=== PATIENT | female | born 1935 | race Caucasian/White ===

== ENCOUNTER 2016-12-15 02:52 | Emergency (ER) | payer MEDICARE, BC ==
[2016-12-15 03:04] VITALS: BP 152/83
[2016-12-15] MEDS ORDERED: Albuterol/Ipratropium 3.0-0.5 MG/3 ML Neb Soln NEB ONE (03:21)
[2016-12-15] MEDS ORDERED: methylPREDNISolone Sodium Succinate 125 MG/2 ML SDV IVPUSH ONE (03:21)
--- NOTE | 2016-12-15 03:25 | EDM.PDOC ---
ED HPI GENERAL MEDICAL PROBLEM - General Chief Complaint: Respiratory Problem Stated Complaint: HIGH BP & CHILLS Time Seen by Provider: 12/15/16 02:59 Source of Information: Reports: Patient, RN Notes Reviewed History Limitations: Reports: Respiratory Distress - History of Present Illness INITIAL COMMENTS - FREE TEXT/NARRATIVE: The patient has a history of COPD, obstructive sleep apnea, and is on oxygen either 2 or 3 L per nasal cannula continuously, as well as CPAP at night. She states that she has a home oxygen sensor, that she checked her oxygen level before she went to bed, and that it was okay. She states that she was unable to sleep due to dyspnea, and checked her oxygen and found it to be low, although she does not recall the number. She states that she has been wheezing, but denies recent cough. She has had chills, but no recent fever. She denies having a prior similar symptoms. She denies previously being intubated. Back Pain Score (Numeric/FACES): 5 - Related Data Allergies Allergy/AdvReac Type Severity Reaction Status Date / Time atorvastatin calcium Allergy Muscle Verified 12/15/16 03:04 [From Lipitor] Aches Home Meds: Home Meds Ammonium Lactate [Amlactin 12% Lotion] 500 gm TP BID 05/29/14 [History] Aspirin [Halfprin] 81 mg PO DAILY 05/29/14 [History] B2/Vit A,C & E/Lut/Zeaxanth/Mn [Icaps] 2 tab PO QAM 05/29/14 [History] Budesonide/Formoterol [Symbicort 160-4.5 MCG] 2 puff INH BID 05/29/14 [History] Cholecalciferol (Vitamin D3) [Vitamin D3] 1,000 unit PO DAILY 05/29/14 [History] Cholestyramine/Aspartame [Questran Light Powder] 4 gm PO DAILY PRN 05/29/14 [ History] Furosemide [Lasix] 60 mg PO DAILY 05/29/14 [History] Ibuprofen [Motrin] 600 mg PO ASDIRECTED PRN 05/29/14 [History] Levothyroxine 25 mcg PO ACBRK 05/29/14 [History] Lisinopril [Zestril] 2.5 mg PO DAILY 05/29/14 [History] Magnesium Oxide 400 mg PO BEDTIME 05/29/14 [History] Metoprolol Tartrate 50 mg PO BID 05/29/14 [History] Potassium Chloride [Klor-Con M20] 20 meq PO DAILY 05/29/14 [History] Simvastatin [Zocor] 40 mg PO BEDTIME 05/29/14 [History] Vitamin B Complex [B Complex] 1 each PO DAILY 05/29/14 [History] oxyCODONE HCl/Acetaminophen [Percocet 10-325 MG] 0.5 tab PO Q6H PRN 05/29/14 [ History] Acetaminophen [Tylenol] 325 mg PO ASDIRECTED 06/11/14 [History] Calcium 1500 Mg 1,500 mg PO BID 06/11/14 [History] Levofloxacin [Levaquin] 750 mg PO QAM #4 tablet 12/15/16 [Rx] Past Medical History Cardiovascular History: Reports: High Cholesterol, Hypertension Respiratory History: Reports: COPD, Sleep Apnea, Other (See Below) (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) Musculoskeletal History: Reports: Other (See Below) (Scoliosis) Endocrine/Metabolic History: Reports: Hypothyroidism, Obesity/BMI 30+ - Past Surgical History GI Surgical History: Reports: Cholecystectomy Female Surgical History: Reports: Hysterectomy, Oophorectomy (unilateral) Musculoskeletal Surgical History: Reports: Other (See Below) (Spinal surgery) Social & Family History - Tobacco Use Smoking Status *Q: Former Smoker Years of Tobacco use: 2 Used Tobacco, but Quit: Yes Month Tobacco Last Used: unknown - Alcohol Use Days Per Week of Alcohol Use: 0 - Recreational Drug Use Recreational Drug Use: No - Living Situation & Occupation Living situation: Reports: , with Spouse Occupation: Retired ED ROS GENERAL - Review of Systems Review Of Systems: Unable To Obtain (due to respiratory distress) ED EXAM, GENERAL - Physical Exam Exam: See Below Exam Limited By: No Limitations General Appearance: Alert, WD/WN, Moderate Distress Eye Exam: Bilateral Eye: Normal Inspection Ears: Normal External Exam, Hearing Grossly Normal Nose: Normal Inspection, No Blood Throat/Mouth: Normal Inspection, Normal Lips, Normal Voice, No Airway Compromise Head: Atraumatic, Normocephalic Neck: Normal Inspection, Full Range of Motion Respiratory/Chest: Respiratory Distress, Decreased Breath Sounds (severe), Wheezing (expiratory), Prolonged Expiration. No: Crackles, Rhonchi Cardiovascular: Normal Peripheral Pulses, Regular Rate, Rhythm, No Edema, No Gallop, No JVD, No Murmur, No Rub, Tachycardia Peripheral Pulses: 4+: Radial (L), Radial (R) GI/Abdominal: Normal Bowel Sounds, Soft, Non-Tender, No Organomegaly, No Distention, No Abnormal Bruit, No Mass, Other (Obese) (Female) Exam: Deferred Rectal (Female) Exam: Deferred Back Exam: Other (Severe scoliosis. Well-healed surgical scars noted.) Extremities: Normal Inspection, Normal Range of Motion, Normal Capillary Refill , Other (Bilateral legs with hyperpigmentation, consider with chronic venous stasis. 1+ pitting edema pretibially on the right, none on the left.) Neurological: Alert, Oriented, Normal Cognition, No Motor/Sensory Deficits Psychiatric: Normal Affect Skin Exam: Warm, Dry, Intact, Normal Color, No Rash Lymphatic: No Adenopathy EKG INTERPRETATION EKG Date: 12/15/16 Time: 03:03 Rhythm: NSR Rate (Beats/Min): 93 [place]: Normal P-Wave: Present QRS: Normal ST-T: Normal QT: Normal Comparison: NA - No Prior EKG Course - Vital Signs Last Recorded V/S: Last Vital Signs Temp 36.6 C 12/15/16 03:01 Pulse 94 12/15/16 03:01 Resp 21 H 12/15/16 03:01 BP 152/83 H 12/15/16 03:01 Pulse Ox 92 L 12/15/16 04:03 - Orders/Labs/Meds Orders: Active Orders 24 hr Category Date Time Status EKG Documentation Completion [RC] STAT Care 12/15/16 03:22 Active RT Aerosol Therapy [RC] ASDIRECTED Care 12/15/16 03:21 Active Ang Chest [CT] Stat Exams 12/15/16 04:11 Taken Chest 1V Frontal [CR] Stat Exams 12/15/16 03:23 Taken Sodium Chloride 0.9% [Normal Saline] 1,000 ml Med 12/15/16 04:15 Active IV ASDIRECTED Blood Culture x2 Reflex Set [OM.PC] Stat Oth 12/15/16 03:22 Ordered Medication Orders Sodium Chloride (Normal Saline) 1,000 mls @ 100 mls/hr IV ASDIRECTED JAZZY Last Admin: 12/15/16 04:23 Dose: 100 mls/hr Labs: Laboratory Tests 12/15/16 12/15/16 12/15/16 Range/Units 03:10 03:10 03:10 WBC 13.91 H (3.98-10.04) K/mm3 RBC 4.45 (3.98-5.22) M/mm3 Hgb 13.1 (11.2-15.7) gm/L Hct 42.5 (34.1-44.9) % MCV 95.5 H (79.4-94.8) fl MCH 29.4 (25.6-32.2) pg MCHC 30.8 L (32.2-35.5) g/dl RDW Std Deviation 49.9 H (36.4-46.3) fL Plt Count 195 (182-369) K/mm3 MPV 10.7 (9.4-12.3) fl Neutrophils % (Manual) 73 H (40-60) % Band Neutrophils % 0 (0-10) % Lymphocytes % (Manual) 15 L (20-40) % Atypical Lymphs % 6 % Monocytes % (Manual) 2 (2-10) % Eosinophils % (Manual) 3 (0.7-5.8) % Basophils % (Manual) 1 (0.1-1.2) Platelet Estimate Adequate Plt Morphology Comment Normal Poikilocytosis 1+ slight Anisocytosis 1+ slight Microcytosis 1+ slight Macrocytosis 1+ slight Ovalocytes 1+ slight RBC Morph Comment Abn PT 10.0 (8.0-13.0) SECONDS INR 0.92 APTT 24 (22-36) SECONDS D-Dimer, Quantitative 1.13 H (0.19-0.59) mg/L Puncture Site ABG pH (7.35-7.45) ABG pCO2 (35.0-45.0) mmHg ABG pO2 (80.0-100.0) mmHg ABG HCO3 (22.0-26.0) meq/L O2 Delivery Device Oxygen Flow Rate Sodium 141 (136-145) mEq/L Potassium 5.2 H (3.5-5.1) mEq/L Chloride 103 (98-107) mEq/L Carbon Dioxide 36 H (21-32) mEq/L Anion Gap 7.2 (5-15) BUN 24 H (7-18) mg/dL Creatinine 1.3 H (0.55-1.02) mg/dL Est Cr Clr Drug Dosing 26.39 mL/min Estimated GFR (MDRD) 39 (>60) mL/min BUN/Creatinine Ratio 18.5 H (14-18) Glucose 150 H (83-115) mg/dL Lactic Acid (0.4-2.0) mmol/L Calcium 9.4 (8.5-10.1) mg/dL Total Bilirubin 0.6 (0.2-1.0) mg/dL AST 22 (15-37) U/L ALT 22 (14-59) U/L Alkaline Phosphatase 107 (46-116) U/L Troponin I < 0.017 (0.00-0.056) ng/mL B-Natriuretic Peptide (0-100) pg/mL Total Protein 7.3 (6.4-8.2) g/dl Albumin 3.6 (3.4-5.0) g/dl Globulin 3.7 gm/dL Albumin/Globulin Ratio 1.0 (1-2) 12/15/16 12/15/16 12/15/16 Range/Units 03:10 03:22 03:47 WBC (3.98-10.04) K/mm3 RBC (3.98-5.22) M/mm3 Hgb (11.2-15.7) gm/L Hct (34.1-44.9) % MCV (79.4-94.8) fl MCH (25.6-32.2) pg MCHC (32.2-35.5) g/dl RDW Std Deviation (36.4-46.3) fL Plt Count (182-369) K/mm3 MPV (9.4-12.3) fl Neutrophils % (Manual) (40-60) % Band Neutrophils % (0-10) % Lymphocytes % (Manual) (20-40) % Atypical Lymphs % % Monocytes % (Manual) (2-10) % Eosinophils % (Manual) (0.7-5.8) % Basophils % (Manual) (0.1-1.2) Platelet Estimate Plt Morphology Comment Poikilocytosis Anisocytosis Microcytosis Macrocytosis Ovalocytes RBC Morph Comment PT (8.0-13.0) SECONDS INR APTT (22-36) SECONDS D-Dimer, Quantitative (0.19-0.59) mg/L Puncture Site Rt radial ABG pH 7.38 (7.35-7.45) ABG pCO2 50.5 H (35.0-45.0) mmHg ABG pO2 67.0 L (80.0-100.0) mmHg ABG HCO3 29.5 H (22.0-26.0) meq/L O2 Delivery Device Nasal cannula Oxygen Flow Rate 3.0 Sodium (136-145) mEq/L Potassium (3.5-5.1) mEq/L Chloride (98-107) mEq/L Carbon Dioxide (21-32) mEq/L Anion Gap (5-15) BUN (7-18) mg/dL Creatinine (0.55-1.02) mg/dL Est Cr Clr Drug Dosing mL/min Estimated GFR (MDRD) (>60) mL/min BUN/Creatinine Ratio (14-18) Glucose (83-115) mg/dL Lactic Acid 0.9 (0.4-2.0) mmol/L Calcium (8.5-10.1) mg/dL Total Bilirubin (0.2-1.0) mg/dL AST (15-37) U/L ALT (14-59) U/L Alkaline Phosphatase (46-116) U/L Troponin I (0.00-0.056) ng/mL B-Natriuretic Peptide 197 H (0-100) pg/mL Total Protein (6.4-8.2) g/dl Albumin (3.4-5.0) g/dl Globulin gm/dL Albumin/Globulin Ratio (1-2) Meds: Medications Generic Name Dose Route Start Last Admin Trade Name Freq PRN Reason Stop Dose Admin Sodium Chloride 1,000 mls @ 100 mls/hr 12/15/16 04:15 12/15/16 04:23 Normal Saline IV 100 mls/hr ASDIRECTED JAZZY Administration Discontinued Medications Generic Name Dose Route Start Last Admin Trade Name Freq PRN Reason Stop Dose Admin Albuterol/Ipratropium 3 ml 12/15/16 03:21 12/15/16 04:01 Duoneb 3.0-0.5 Mg/3 Ml NEB 12/15/16 03:22 3 ml ONETIME ONE Administration Iopamidol 140 ml 12/15/16 05:11 12/15/16 06:26 Isovue-370 (76%) IVPUSH 07/20/17 05:12 140 ml ONETIME ONE Administration Levofloxacin 750 mg 12/15/16 06:28 12/15/16 06:41 Levaquin PO 12/15/16 06:29 750 mg ONETIME STA Administration Methylprednisolone Sodium Succinate 125 mg 12/15/16 03:21 12/15/16 03:26 Solu-Medrol IVPUSH 12/15/16 03:22 125 mg ONETIME ONE Administration - Re-Assessments/Exams Free Text/Narrative Re-Assessment/Exam: 12/15/16 03:52 Portable chest radiograph reviewed. Interpretation is difficult, due to severe scoliosis and distortion of normal anatomy. Cardiac silhouette is within normal limits. No pulmonary vascular congestion. No pleural effusions. Right-sided infiltrates likely. No pneumothorax. Formal read per the Radiologist pending. 12/15/16 04:01 The patient's ABG represents a chronic/compensated respiratory acidosis. 12/15/16 04:12 The patient's D-dimer has returned elevated at 1.13. As her blood gas shows a compensated respiratory acidosis, it does not appear that the patient's current symptoms are due to a COPD exacerbation. Her chest radiograph is very difficult to interpret, but may demonstrate infiltrates, particularly on the right. I believe a CT angiogram of the chest will help answer a lot of questions. 12/15/16 06:20 Notified by the [facility] Radiologist that the CT angiography of the patient's chest demonstrates a 5 x 4 cm mass in the right upper lobe with associated lymphadenopathy. No pulmonary embolus. 12/15/16 06:23 CT angiogram of the chest is read by [facility] as: 1. 4 x 5 cm RUL lung mass versus masslike consolidation, new since 2012. 2. Enlarged/prominent right hilar and mediastinal lymph nodes-no reactive versus metastatic adenopathy 3. Similar severe scoliosis. Restrictive lung disease due to scoliosis. 4. Borderline enlarged heart. CAD. 12/15/16 06:29 The mass in the patient's right upper lobe is most likely a malignancy, although there is a small chance that it could be a masslike consolidation. Either way, I am going to treat with antibiotics. I have ordered Levaquin 750 mg by mouth. The patient's was here when the patient initially presented, but has since gone home. I'm told that he is on his way back to the ED, I will discuss the test results with the two of them when he returns. 12/15/16 07:18 Test results discussed with the patient and her . The patient is looking and feeling much better. I will discharge her home with an e-prescription for Levaquin, however, the main issue is the right upper lobe mass, most likely cancerous. I am recommending she follow-up with both her PCP, Dr. Erika Mccracken, and her Drawing In Machine T[employer] Helper Dr. Varela for further evaluation and treatment options. Departure - Departure Time of Disposition: : Disposition: Home, Self-Care 01 Condition: Fair Clinical Impression: Mass of right lung - Discharge Information Referrals: Erika Mccracken MD [Primary Care Provider] - Josiah Varela MD [Ordering Only Provider] - Forms: ED Department Discharge Additional Instructions: You were seen in the emergency room for severe shortness of breath. Workup in the ER included blood work, an ABG, 2 sets of blood cultures, an ECG, a portable chest x-ray, and a CT angiogram of your chest. Your workup showed that you were NOT having a COPD exacerbation. The CT angiogram demonstrated a 5 x 4 cm mass in your upper right lung. This will need to be investigated further. While it does not appear that you have pneumonia, it can be hidden within the mass, therefore you have been started on the antibiotic Levaquin. Take one tablet each morning, starting tomorrow, 12/16/2016, as prescribed. Follow-up with your PCP, Dr. Erika Mccracken at the next available appointment. Follow-up with your Drawing In Machine Tender Helper, Dr. Varela, at the next available appointment. If any other problems, please do not hesitate to return to the ER. - My Orders Last 24 Hours: My Active Orders 12/15/16 03:21 RT Aerosol Therapy [RC] ASDIRECTED 12/15/16 03:22 EKG Documentation Completion [RC] STAT Blood Culture x2 Reflex Set [OM.PC] Stat 12/15/16 03:23 Chest 1V Frontal [CR] Stat 12/15/16 04:11 Ang Chest [CT] Stat 12/15/16 04:15 Sodium Chloride 0.9% [Normal Saline] 1,000 ml IV ASDIRECTED - Assessment/Plan Last 24 Hours: My Active Orders 12/15/16 03:21 RT Aerosol Therapy [RC] ASDIRECTED 12/15/16 03:22 EKG Documentation Completion [RC] STAT Blood Culture x2 Reflex Set [OM.PC] Stat 12/15/16 03:23 Chest 1V Frontal [CR] Stat 12/15/16 04:11 Ang Chest [CT] Stat 12/15/16 04:15 Sodium Chloride 0.9% [Normal Saline] 1,000 ml IV ASDIRECTED
[2016-12-15] MEDS ORDERED: Sodium Chloride 0.9% 1,000 ML IV SCH (04:15)
[2016-12-15] MEDS ORDERED: Iopamidol 755 Mg/ML 100 ML Bottle IVPUSH ONE (05:11)
[2016-12-15] MEDS ORDERED: Levofloxacin 750 MG Tab PO STA (06:28)
--- NOTE | 2016-12-15 08:49 | CT ---
CT chest Technique: Multiple axial sections through the chest were obtained. Intravenous contrast was utilized. Study has been performed as a pulmonary angiogram protocol. Comparison: Previous chest CT of 04/10/13. Findings: Pulmonary arteries show no filling defects to indicate pulmonary embolism. Aorta shows mild atherosclerotic change without aneurysm. Mild coronary artery calcification is seen. No pericardial thickening is identified. Focal consolidation within the right upper chest is seen. This measures about 5 cm in greatest dimension and could represent mass or focal area of pneumonia. Mild fibrosis felt to be present within both lungs. Several scattered mediastinal lymph nodes are seen which have slightly increased in size from prior study which may be due to metastatic disease or inflammatory enlargement. Small portion of the upper abdominal structures shows a nonobstructing stone within the left kidney. Impression: 1. Focal consolidation within the right upper lung either due to focal pneumonia or neoplastic mass. Recommend treatment with antibiotics and follow-up chest CT 2 weeks after clinical therapy is complete to evaluate for any change. 2. Enlarged lymph nodes within the mediastinum from prior chest CT which may be enlarged on inflammatory basis or metastatic basis. 3. Scattered pulmonary scarring and fibrosis. Scoliosis present within the spine. Diagnostic code #9 I agree with preliminary report issued by [facility] ([facility] report finalized on 12/15/16, 7:20 AM Central Time)
--- NOTE | 2016-12-15 08:49 | CR ---
Chest: Frontal view of the chest was obtained. Comparison: Previous chest x-ray of 05/29/14. Scoliosis is present. Heart size appears within normal limits for technique. Tortuous thoracic aorta is seen. Vague increased density is noted within the right upper chest. This is an interval change from prior chest x-ray. Lungs otherwise are felt to be clear. Impression: 1. Vague increased density within the right upper chest either representing mass or pneumonia. 2. Stable scoliosis. Diagnostic code #9
== END 2016-12-15 08:17 | disposition home or self-care (01) ==
LOC: JD.ED 02:52
DX: R91.8 Other nonspecific abnormal finding of lung field (principal); I10 Essential (primary) hypertension; E78.00 Pure hypercholesterolemia, unspecified; J44.9 Chronic obstructive pulmonary disease, unspecified; G47.30 Sleep apnea, unspecified; E03.9 Hypothyroidism, unspecified; E66.9 Obesity, unspecified; Z90.49 Acquired absence of other specified parts of digestive tract; Z90.710 Acquired absence of both cervix and uterus; Z98.890 Other specified postprocedural states; Z87.891 Personal history of nicotine dependence; Z79.899 Other long term (current) drug therapy; Z79.82 Long term (current) use of aspirin; Z88.8 Allergy status to other drugs, medicaments and biological substances
CPT/HCPCS: 36415; 36600; 71010; 71275; 80053; 82803; 83605; 83880; 84484; 85025; 85379; 85610; 85730; 93005; 94664; 96361; 96374; 99284; A9270; J2930; J7040; Q9967

== ENCOUNTER 2017-10-06 12:54 | Emergency (ER) | payer MEDICARE, BC ==
[2017-10-06 13:26] VITALS: BP 116/64
--- NOTE | 2017-10-06 14:56 | CT ---
Head CT Technique: Multiple axial sections through the brain were obtained. Intravenous contrast was not utilized. Comparison: No prior intracranial imaging. Findings: Ventricles along the basal cisterns and sulci over the convexities are within normal limits for the patient's age. Old lacunar infarct is noted within the right basal ganglia. No other abnormal parenchymal densities are seen. No evidence of intracranial hemorrhage. No midline shift or mass effect is seen. Visualized sinuses are clear. No acute calvarial abnormality is seen. Impression: 1. Minimal senescent change. 2. No acute intracranial abnormality is seen on noncontrast head CT. Diagnostic code #2
--- NOTE | 2017-10-06 14:58 | CR ---
Chest: Frontal view of the chest was obtained. Comparison: Prior chest x-ray of 12/15/16. Heart size and mediastinum are within normal limits. Slight scarring is seen within both lung bases. Scoliosis is noted within the spine. Impression: 1. Incidental findings. Nothing acute is appreciated. Diagnostic code #2
[2017-10-06] MEDS ORDERED: Potassium Chloride 10% 20 MEQ/15 ML Soln 15 ML UD Cup PO ONE (14:59)
[2017-10-06] MEDS ORDERED: Cephalexin 500 MG Cap PO ONE (15:01)
--- NOTE | 2017-10-06 15:32 | EDM.PDOC ---
ED HPI GENERAL MEDICAL PROBLEM - General Chief Complaint: Neurological Problem Stated Complaint: DIZZINESS/FORGETFULNESS Time Seen by Provider: 10/06/17 13:32 Source of Information: Reports: Patient History Limitations: Reports: No Limitations - History of Present Illness INITIAL COMMENTS - FREE TEXT/NARRATIVE: 82 y/o F presents feeling vaguely weak and dizzy. A few days ago she had increased lower extremity edema so increased her lasix to 80mg daily x 2 days under the direction of her PCP Dr. Mccracken. Now today she's feeling weak and dizzy. No fall. Had a mild to moderate headache, this has actually resolved. No cough/CP/SOB. Denies abdominal pain. Mildly decreased appetite and nausea, no vomiting. Lower extremity edema has now resolved. No specific pain. No skin complaint. Concerned that she may have "overdosed" on her lasix so came here for eval. She has f/u scheduled with Dr. Mccracken for next week. Back Pain Score (Numeric/FACES): 7 - Related Data Allergies Allergy/AdvReac Type Severity Reaction Status Date / Time atorvastatin calcium AdvReac Muscle Verified 12/16/16 11:34 [From Lipitor] Aches Home Meds: Home Meds Ammonium Lactate [Amlactin 12% Lotion] 500 gm TP BID PRN 05/29/14 [History] Aspirin [Halfprin] 81 mg PO DAILY 05/29/14 [History] B2/Vit A,C & E/Lut/Zeaxanth/Mn [Icaps] 2 tab PO QAM 05/29/14 [History] Budesonide/Formoterol [Symbicort 160-4.5 MCG] 2 puff INH BID 05/29/14 [History] Cholecalciferol (Vitamin D3) [Vitamin D3] 1,000 unit PO DAILY 05/29/14 [History] Cholestyramine/Aspartame [Questran Light Powder] 4 gm PO DAILY PRN 05/29/14 [ History] Furosemide [Lasix] 80 mg PO DAILY 05/29/14 [History] Levothyroxine 25 mcg PO ACBRK 05/29/14 [History] Magnesium Oxide 400 mg PO BEDTIME 05/29/14 [History] Metoprolol Tartrate 50 mg PO BID 05/29/14 [History] Potassium Chloride [Klor-Con M20] 10 meq PO DAILY 05/29/14 [History] Simvastatin [Zocor] 40 mg PO BEDTIME 05/29/14 [History] Albuterol [IJD: Albuterol] 2.5 mg INH Q8H PRN 10/06/17 [History] Calcium Carbonate [Calcium] 1,500 mg PO DAILY 10/06/17 [History] Cephalexin 500 mg PO QID #28 tablet 10/06/17 [Rx] Naproxen 220 mg PO ASDIRECTED PRN 10/06/17 [History] Past Medical History Cardiovascular History: Reports: High Cholesterol, Hypertension Respiratory History: Reports: COPD, Sleep Apnea, Other (See Below) Other Respiratory History: wear oxygen at home Musculoskeletal History: Reports: Other (See Below) Endocrine/Metabolic History: Reports: Hypothyroidism, Obesity/BMI 30+ - Past Surgical History GI Surgical History: Reports: Cholecystectomy Female Surgical History: Reports: Hysterectomy, Oophorectomy Musculoskeletal Surgical History: Reports: Other (See Below) Social & Family History - Tobacco Use Smoking Status *Q: Never Smoker - Caffeine Use Caffeine Use: Reports: Coffee, Soda - Recreational Drug Use Recreational Drug Use: No - Living Situation & Occupation Living situation: Reports: , with Spouse Occupation: Retired ED ROS GENERAL - Review of Systems Review Of Systems: See Below Constitutional: Reports: Malaise, Weakness, Fatigue. Denies: Fever HEENT: Reports: No Symptoms Respiratory: Denies: Shortness of Breath Cardiovascular: Denies: Chest Pain Endocrine: Reports: Fatigue GI/Abdominal: Reports: Nausea. Denies: Vomiting : Denies: Dysuria Musculoskeletal: Reports: No Symptoms Skin: Reports: No Symptoms Neurological: Reports: Dizziness, Headache Psychiatric: Reports: No Symptoms Hematologic/Lymphatic: Reports: No Symptoms - Physical Exam Exam: See Below Exam Limited By: No Limitations General Appearance: Alert, WD/WN, No Apparent Distress Eye Exam: Bilateral Eye: EOMI, PERRL Ears: Normal External Exam Nose: Normal Inspection Throat/Mouth: Normal Inspection, Normal Oropharynx, Normal Voice, No Airway Compromise Head Exam: Atraumatic, Normocephalic Neck: Normal Inspection, Supple, Non-Tender, Full Range of Motion Respiratory/Chest: No Respiratory Distress, Lungs Clear, Normal Breath Sounds, No Accessory Muscle Use, Other (marked thoracic scoliosis, posterior chest wall scar. ) Cardiovascular: Normal Peripheral Pulses, Regular Rate, Rhythm, No Murmur, Other (minimal bilat LE edema, symmetric) GI/Abdominal: Soft, Non-Tender, No Distention. No: Rebound Neuro Exam (Abbreviated): Alert, Oriented, CN II-XII Intact, Normal Cognition, No Motor/Sensory Deficits Back Exam: Normal Inspection Extremities: Normal Inspection, Non-Tender Psychiatric: Normal Affect, Normal Mood Skin Exam: Warm, Dry, Intact, Normal Color, No Rash Course - Vital Signs Last Recorded V/S: Last Vital Signs Temp 36.8 C 10/06/17 13:25 Pulse 82 10/06/17 13:25 Resp 25 H 10/06/17 13:25 BP 116/64 10/06/17 13:25 Pulse Ox 93 L 10/06/17 13:25 - Orders/Labs/Meds Labs: Laboratory Tests 10/06/17 10/06/17 10/06/17 Range/Units 13:57 13:57 14:17 WBC 14.84 H (3.98-10.04) K/mm3 RBC 3.65 L (3.98-5.22) M/mm3 Hgb 10.9 L (11.2-15.7) gm/L Hct 36.3 (34.1-44.9) % MCV 99.5 H (79.4-94.8) fl MCH 29.9 (25.6-32.2) pg MCHC 30.0 L (32.2-35.5) g/dl RDW Std Deviation 51.1 H (36.4-46.3) fL Plt Count 249 (182-369) K/mm3 MPV 9.5 (9.4-12.3) fl Neut % (Auto) 81.3 H (34.0-71.1) % Lymph % (Auto) 7.1 L (19.3-51.7) % [place] % (Auto) 10.0 (4.7-12.5) % Eos % (Auto) 1.4 (0.7-5.8) Baso % (Auto) 0.1 (0.1-1.2) % Neut # (Auto) 12.05 H (1.56-6.13) K/mm3 Lymph # (Auto) 1.06 L (1.18-3.74) K/mm3 [place] # (Auto) 1.48 H (0.24-0.36) K/mm3 Eos # (Auto) 0.21 (0.04-0.36) K/mm3 Baso # (Auto) 0.02 (0.01-0.08) K/mm3 Manual Slide Review Abnormal smear Sodium 141 (136-145) mEq/L Potassium 3.1 L (3.5-5.1) mEq/L Chloride 99 (98-107) mEq/L Carbon Dioxide 37 H (21-32) mEq/L Anion Gap 8.1 (5-15) BUN 24 H (7-18) mg/dL Creatinine 1.4 H (0.55-1.02) mg/dL Est Cr Clr Drug Dosing 22.97 mL/min Estimated GFR (MDRD) 36 (>60) mL/min BUN/Creatinine Ratio 17.1 (14-18) Glucose 154 H (83-115) mg/dL Calcium 9.0 (8.5-10.1) mg/dL Magnesium 2.0 (1.8-2.4) mg/dl Total Bilirubin 0.5 (0.2-1.0) mg/dL AST 12 L (15-37) U/L ALT 21 (14-59) U/L Alkaline Phosphatase 129 H (46-116) U/L Troponin I < 0.017 (0.00-0.056) ng/mL Total Protein 6.6 (6.4-8.2) g/dl Albumin 2.2 L (3.4-5.0) g/dl Globulin 4.4 gm/dL Albumin/Globulin Ratio 0.5 L (1-2) Free T4 1.21 (0.76-1.46) ng/dL TSH 3rd Generation 2.089 (0.358-3.74) uIU/mL Urine Color Yellow (Yellow) Urine Appearance Clear (Clear) Urine pH 7.0 (5.0-8.0) Ur Specific [place] 1.015 (1.005-1.030) Urine Protein Trace H (Negative) Urine Glucose (UA) Negative (Negative) Urine Ketones Negative (Negative) Urine Occult Blood Trace-lysed H (Negative) Urine Nitrite Negative (Negative) Urine Bilirubin Negative (Negative) Urine Urobilinogen 1.0 (0.2-1.0) Ur Leukocyte Esterase 1+ H (Negative) Urine RBC 5-10 H (0-5) /hpf Urine WBC 20-30 H (0-5) /hpf Ur Epithelial Cells 5-10 H (0-5) /hpf Amorphous Sediment Few H (NOT SEEN) /hpf Urine Bacteria Moderate H (FEW) /hpf Urine Mucus Not seen (FEW) /hpf Meds: Medications Discontinued Medications Generic Name Dose Route Start Last Admin Trade Name Fer PRN Reason Stop Dose Admin Cephalexin 500 mg 10/06/17 15:01 10/06/17 15:12 Keflex PO 10/06/17 15:02 500 mg ONETIME ONE Administration Potassium Chloride 20 meq 10/06/17 14:59 10/06/17 15:12 Potassium Chloride Solution PO 10/06/17 15:00 20 meq ONETIME ONE Administration - Re-Assessments/Exams Free Text/Narrative Re-Assessment/Exam: EKG shows narrow complex rhythm, likely NSR with some atrial ectopy, no significant ST/T abnormality. CXR shows cardiac silhouette at upper limits of normal, no infiltrate or other acute abnormality. CT head was negative for acute abnormality. Labs significant for elevated WBC at 14. Creatinine 1.4. Mild hypokalemia at 3.1 which was replaced orally. UA is consistent with infection. I do think this explains her vague symptoms. Will treat with cephalexin. She has PCP f/u scheduled for several days from now. Discussed return precautions. 10/07/17 19:18 Departure - Departure Time of Disposition: 15:31 Disposition: Home, Self-Care 01 Clinical Impression: Hypokalemia, Generalized weakness Urinary tract infection Qualifiers: Urinary tract infection type: acute cystitis Hematuria presence: without hematuria Qualified Code(s): N30.00 - Acute cystitis without hematuria - Discharge Information Prescriptions: Cephalexin 500 mg PO QID #28 tablet Instructions: Urinary Tract Infection, Adult Referrals: Erika Mccracken MD [Primary Care Provider] - Forms: ED Department Discharge Additional Instructions: 1. Take antibiotic as prescribed 2. Follow up with Dr. Mccracken next week as planned 3. Return to the ED for any new or worsening symptoms, such as fever, vomiting, difficulty breathing, abdominal pain, or confusion
== END 2017-10-06 16:10 | disposition home or self-care (01) ==
LOC: JD.ED 12:54
DX: E87.6 Hypokalemia (principal); N30.00 Acute cystitis without hematuria; R53.1 Weakness; E78.00 Pure hypercholesterolemia, unspecified; I10 Essential (primary) hypertension; E03.9 Hypothyroidism, unspecified; Z88.8 Allergy status to other drugs, medicaments and biological substances; Z79.899 Other long term (current) drug therapy; Z79.82 Long term (current) use of aspirin
CPT/HCPCS: 36415; 70450; 71045; 80053; 81001; 83735; 84439; 84443; 84484; 85025; 87086; 93005; 99284; A9270; 99283

== ENCOUNTER 2017-10-07 22:52 | Inpatient (IN) | payer MEDICARE, BC ==
[2017-10-07] MEDS ORDERED: Sodium Chloride 0.9% 10 ML Syringe FLUSH PRN (23:14)
--- NOTE | 2017-10-07 23:41 | EDM.PDOC ---
ED HPI GENERAL MEDICAL PROBLEM - General Chief Complaint: Respiratory Problem Stated Complaint: POSS LOW OXYGEN Time Seen by Provider: 10/07/17 23:00 Source of Information: Reports: Patient History Limitations: Reports: No Limitations - History of Present Illness INITIAL COMMENTS - FREE TEXT/NARRATIVE: the patient is an 82-year-old female who has a history of severe scoliosis and COPD with baseline O2 requirement of 2L NC and CPAP at night, presents with confusion. She was here about 2 days ago with vague malaise/weakness and diagnosed with UTI and started on cephalexin. She has been taking this antibiotic as prescribed. Throughout the day today, family noticed that she seemed vaguely confused. They felt like her speech was slurred. She seemed weaker than usual. She has no specific complaint. States she felt like her thinking has been foggy. Family checked her SpO2 at home and found it to be low at 80. They checked her oxygen delivery system and thought there was a kink in the tubing. They brought her here for further eval. By the time of arrival she was already much improved. No fever. No cough. No chest pain/SOB. No abdominal pain. No vomiting or diarrhea. No lower extremity pain or swelling. Treatments MANAGER DIVISION: Reports: Other (see below) Other Treatments MANAGER DIVISION: increased 02 for brief time until recovered - Related Data Allergies Allergy/AdvReac Type Severity Reaction Status Date / Time atorvastatin calcium AdvReac Muscle Verified 12/16/16 11:34 [From Lipitor] Aches Home Meds: Home Meds Ammonium Lactate [Amlactin 12% Lotion] 500 gm TP BID PRN 05/29/14 [History] Aspirin [Halfprin] 81 mg PO DAILY 05/29/14 [History] B2/Vit A,C & E/Lut/Zeaxanth/Mn [Icaps] 2 tab PO QAM 05/29/14 [History] Budesonide/Formoterol [Symbicort 160-4.5 MCG] 2 puff INH BID 05/29/14 [History] Cholecalciferol (Vitamin D3) [Vitamin D3] 1,000 unit PO DAILY 05/29/14 [History] Cholestyramine/Aspartame [Questran Light Powder] 4 gm PO DAILY PRN 05/29/14 [ History] Furosemide [Lasix] 80 mg PO DAILY 05/29/14 [History] Levothyroxine 25 mcg PO ACBRK 05/29/14 [History] Magnesium Oxide 400 mg PO BEDTIME 05/29/14 [History] Metoprolol Tartrate 50 mg PO BID 05/29/14 [History] Potassium Chloride [Klor-Con M20] 10 meq PO DAILY 05/29/14 [History] Simvastatin [Zocor] 40 mg PO BEDTIME 05/29/14 [History] Albuterol [IJD: Albuterol] 2.5 mg INH Q8H PRN 10/06/17 [History] Calcium Carbonate [Calcium] 1,500 mg PO DAILY 10/06/17 [History] Cephalexin 500 mg PO QID #28 tablet 10/06/17 [Rx] Naproxen 220 mg PO ASDIRECTED PRN 10/06/17 [History] Past Medical History Cardiovascular History: Reports: High Cholesterol, Hypertension Respiratory History: Reports: COPD, Sleep Apnea, Other (See Below) Other Respiratory History: wear oxygen at home Musculoskeletal History: Reports: Other (See Below) Endocrine/Metabolic History: Reports: Hypothyroidism, Obesity/BMI 30+ - Past Surgical History GI Surgical History: Reports: Cholecystectomy Female Surgical History: Reports: Hysterectomy, Oophorectomy Musculoskeletal Surgical History: Reports: Other (See Below) Social & Family History - Tobacco Use Smoking Status *Q: Former Smoker Used Tobacco, but Quit: Yes Month/Year Tobacco Last Used: 64 yrs - Caffeine Use Caffeine Use: Reports: Coffee, Soda, Tea - Recreational Drug Use Recreational Drug Use: No - Living Situation & Occupation Living situation: Reports: , with Spouse Occupation: Retired ED ROS GENERAL - Review of Systems Review Of Systems: See Below Constitutional: Reports: Malaise, Weakness, Fatigue. Denies: Fever HEENT: Reports: No Symptoms Respiratory: Denies: Shortness of Breath, Cough Cardiovascular: Denies: Chest Pain Endocrine: Reports: No Symptoms GI/Abdominal: Denies: Abdominal Pain, Nausea Musculoskeletal: Reports: No Symptoms Skin: Reports: No Symptoms Neurological: Reports: Confusion, Dizziness, Headache Psychiatric: Reports: No Symptoms Hematologic/Lymphatic: Reports: No Symptoms Immunologic: Reports: No Symptoms ED EXAM, GENERAL - Physical Exam Exam: See Below Exam Limited By: No Limitations General Appearance: Alert, WD/WN, No Apparent Distress Eye Exam: Bilateral Eye: EOMI, PERRL Ears: Normal External Exam Nose: Normal Inspection Throat/Mouth: Normal Voice, No Airway Compromise, Other (dry mucous membranes ) Head: Atraumatic, Normocephalic Neck: Normal Inspection, Supple, Non-Tender, Full Range of Motion Respiratory/Chest: No Accessory Muscle Use, Decreased Breath Sounds, Wheezing ( diminished throughout. few scattered wheezes. ), Prolonged Expiration, Other ( mild tachypnea). No: Crackles, Rales Cardiovascular: Normal Peripheral Pulses, Regular Rate, Rhythm, No Edema, No Murmur GI/Abdominal: Soft, Non-Tender, No Distention. No: Rebound Back Exam: Normal Inspection Extremities: Normal Inspection. No: Pedal Edema Neurological: Alert, Oriented, CN II-XII Intact, Normal Cognition, No Motor/ Sensory Deficits Psychiatric: Normal Affect, Normal Mood Skin Exam: Warm, Dry, Intact, Normal Color, No Rash Course - Vital Signs Last Recorded V/S: Last Vital Signs Temp 36.3 C 10/07/17 23:04 Pulse 116 H 10/07/17 23:04 Resp 31 H 10/07/17 23:04 BP Pulse Ox 98 10/08/17 00:11 - Orders/Labs/Meds Orders: Active Orders 24 hr Category Date Time Status EKG 12 Lead [EKG Documentation Completion] [RC] STAT Care 10/07/17 23:14 Active Peripheral IV Care [RC] . DIRECTED Care 10/07/17 23:14 Active Peripheral IV Care [RC] . DIRECTED Care 10/07/17 23:15 Active RT Aerosol Therapy [RC] ASDIRECTED Care 10/07/17 23:57 Active RT BiPAP/CPAP [RC] ASDIRECTED Care 10/07/17 23:56 Active Chest 1V Frontal [CR] Stat Exams 10/07/17 23:14 Ordered Head wo Cont [CT] Stat Exams 10/07/17 23:14 Taken CULTURE BLOOD [BC] Stat Lab 10/07/17 23:30 Received CULTURE BLOOD [BC] Stat Lab 10/07/17 23:40 Received INFLUENZA A+B AG SCREEN [RM] Stat Lab 10/08/17 00:55 Ordered MYCOPLASMA PNEUMONIAE IGM AB [CHEM] Stat Lab 10/08/17 00:55 Ordered UA W/MICROSCOPIC [URIN] Stat Lab 10/07/17 23:14 Ordered Sodium Chloride 0.9% [Saline Flush] Med 10/07/17 23:14 Active 10 ml FLUSH ASDIRECTED PRN Blood Culture x2 Reflex Set [OM.PC] Stat Oth 10/07/17 23:14 Ordered Peripheral IV Insertion Adult [OM.PC] Routine Oth 10/07/17 23:14 Ordered Medication Orders Sodium Chloride (Saline Flush) 10 ml FLUSH ASDIRECTED PRN PRN Reason: Keep Vein Open Last Admin: 10/07/17 23:37 Dose: 10 ml Labs: Laboratory Tests 10/07/17 10/07/17 10/07/17 Range/Units 23:30 23:30 23:30 WBC 13.03 H (3.98-10.04) K/mm3 RBC 3.59 L (3.98-5.22) M/mm3 Hgb 10.5 L (11.2-15.7) gm/L Hct 35.6 (34.1-44.9) % MCV 99.2 H (79.4-94.8) fl MCH 29.2 (25.6-32.2) pg MCHC 29.5 L (32.2-35.5) g/dl RDW Std Deviation 52.0 H (36.4-46.3) fL Plt Count 296 (182-369) K/mm3 MPV 9.5 (9.4-12.3) fl Neut % (Auto) 79.7 H (34.0-71.1) % Lymph % (Auto) 8.6 L (19.3-51.7) % [place] % (Auto) 9.9 (4.7-12.5) % Eos % (Auto) 1.3 (0.7-5.8) Baso % (Auto) 0.2 (0.1-1.2) % Neut # (Auto) 10.39 H (1.56-6.13) K/mm3 Lymph # (Auto) 1.12 L (1.18-3.74) K/mm3 [place] # (Auto) 1.29 H (0.24-0.36) K/mm3 Eos # (Auto) 0.17 (0.04-0.36) K/mm3 Baso # (Auto) 0.02 (0.01-0.08) K/mm3 Manual Slide Review Abnormal smear PT 10.5 (9.5-12.1) SECONDS INR 0.96 Puncture Site ABG pH (7.35-7.45) ABG pCO2 (35.0-45.0) mmHg ABG pO2 (80.0-100.0) mmHg ABG HCO3 (22.0-26.0) meq/L ABG O2 Saturation (96.0-97.0) % ABG Base Excess (-2-2.0) Nikolai Test A-a Gradient mmHg O2 Delivery Device Oxygen Flow Rate FiO2 (21.00-100.00) % Sodium 141 (136-145) mEq/L Potassium 3.3 L (3.5-5.1) mEq/L Chloride 99 (98-107) mEq/L Carbon Dioxide 38 H (21-32) mEq/L Anion Gap 7.3 (5-15) BUN 30 H (7-18) mg/dL Creatinine 1.6 H (0.55-1.02) mg/dL Est Cr Clr Drug Dosing 20.10 mL/min Estimated GFR (MDRD) 31 (>60) mL/min BUN/Creatinine Ratio 18.8 H (14-18) Glucose 299 H (83-115) mg/dL Lactic Acid (0.4-2.0) mmol/L Calcium 9.0 (8.5-10.1) mg/dL Magnesium 1.9 (1.8-2.4) mg/dl Total Bilirubin 0.3 (0.2-1.0) mg/dL AST 39 H (15-37) U/L ALT 41 (14-59) U/L Alkaline Phosphatase 151 H (46-116) U/L Ammonia (11-32) umol/L Troponin I < 0.017 (0.00-0.056) ng/mL NT-Pro-B Natriuret Pep (0-450) pg/mL Total Protein 6.4 (6.4-8.2) g/dl Albumin 2.1 L (3.4-5.0) g/dl Globulin 4.3 gm/dL Albumin/Globulin Ratio 0.5 L (1-2) Lipase 122 (73-393) U/L Free T4 1.11 (0.76-1.46) ng/dL TSH 3rd Generation 2.108 (0.358-3.74) uIU/mL Ethyl Alcohol 0.00 (0.00) gm% 10/07/17 10/07/1718 Range/Units 23:30 23:30 23:30 WBC (3.98-10.04) K/mm3 RBC (3.98-5.22) M/mm3 Hgb (11.2-15.7) gm/L Hct (34.1-44.9) % MCV (79.4-94.8) fl MCH (25.6-32.2) pg MCHC (32.2-35.5) g/dl RDW Std Deviation (36.4-46.3) fL Plt Count (182-369) K/mm3 MPV (9.4-12.3) fl Neut % (Auto) (34.0-71.1) % Lymph % (Auto) (19.3-51.7) % [place] % (Auto) (4.7-12.5) % Eos % (Auto) (0.7-5.8) Baso % (Auto) (0.1-1.2) % Neut # (Auto) (1.56-6.13) K/mm3 Lymph # (Auto) (1.18-3.74) K/mm3 [place] # (Auto) (0.24-0.36) K/mm3 Eos # (Auto) (0.04-0.36) K/mm3 Baso # (Auto) (0.01-0.08) K/mm3 Manual Slide Review PT (9.5-12.1) SECONDS INR Puncture Site ABG pH (7.35-7.45) ABG pCO2 (35.0-45.0) mmHg ABG pO2 (80.0-100.0) mmHg ABG HCO3 (22.0-26.0) meq/L ABG O2 Saturation (96.0-97.0) % ABG Base Excess (-2-2.0) Nikolai Test A-a Gradient mmHg O2 Delivery Device Oxygen Flow Rate FiO2 (21.00-100.00) % Sodium (136-145) mEq/L Potassium (3.5-5.1) mEq/L Chloride (98-107) mEq/L Carbon Dioxide (21-32) mEq/L Anion Gap (5-15) BUN (7-18) mg/dL Creatinine (0.55-1.02) mg/dL Est Cr Clr Drug Dosing mL/min Estimated GFR (MDRD) (>60) mL/min BUN/Creatinine Ratio (14-18) Glucose (83-115) mg/dL Lactic Acid 1.1 (0.4-2.0) mmol/L Calcium (8.5-10.1) mg/dL Magnesium (1.8-2.4) mg/dl Total Bilirubin (0.2-1.0) mg/dL AST (15-37) U/L ALT (14-59) U/L Alkaline Phosphatase (46-116) U/L Ammonia 21 (11-32) umol/L Troponin I (0.00-0.056) ng/mL NT-Pro-B Natriuret Pep 6009 H (0-450) pg/mL Total Protein (6.4-8.2) g/dl Albumin (3.4-5.0) g/dl Globulin gm/dL Albumin/Globulin Ratio (1-2) Lipase (73-393) U/L Free T4 (0.76-1.46) ng/dL TSH 3rd Generation (0.358-3.74) uIU/mL Ethyl Alcohol (0.00) gm% 10/07/17 Range/Units 23:33 WBC (3.98-10.04) K/mm3 RBC (3.98-5.22) M/mm3 Hgb (11.2-15.7) gm/L Hct (34.1-44.9) % MCV (79.4-94.8) fl MCH (25.6-32.2) pg MCHC (32.2-35.5) g/dl RDW Std Deviation (36.4-46.3) fL Plt Count (182-369) K/mm3 MPV (9.4-12.3) fl Neut % (Auto) (34.0-71.1) % Lymph % (Auto) (19.3-51.7) % [place] % (Auto) (4.7-12.5) % Eos % (Auto) (0.7-5.8) Baso % (Auto) (0.1-1.2) % Neut # (Auto) (1.56-6.13) K/mm3 Lymph # (Auto) (1.18-3.74) K/mm3 [place] # (Auto) (0.24-0.36) K/mm3 Eos # (Auto) (0.04-0.36) K/mm3 Baso # (Auto) (0.01-0.08) K/mm3 Manual Slide Review PT (9.5-12.1) SECONDS INR Puncture Site Rt radial ABG pH 7.33 L (7.35-7.45) ABG pCO2 73.1 H* (35.0-45.0) mmHg ABG pO2 70.0 L (80.0-100.0) mmHg ABG HCO3 37.0 H (22.0-26.0) meq/L ABG O2 Saturation 94.1 L (96.0-97.0) % ABG Base Excess 9.4 H (-2-2.0) Nikolai Test Positive A-a Gradient 18 mmHg O2 Delivery Device Cannula Oxygen Flow Rate 2.0 FiO2 28.00 (21.00-100.00) % Sodium (136-145) mEq/L Potassium (3.5-5.1) mEq/L Chloride (98-107) mEq/L Carbon Dioxide (21-32) mEq/L Anion Gap (5-15) BUN (7-18) mg/dL Creatinine (0.55-1.02) mg/dL Est Cr Clr Drug Dosing mL/min Estimated GFR (MDRD) (>60) mL/min BUN/Creatinine Ratio (14-18) Glucose (83-115) mg/dL Lactic Acid (0.4-2.0) mmol/L Calcium (8.5-10.1) mg/dL Magnesium (1.8-2.4) mg/dl Total Bilirubin (0.2-1.0) mg/dL AST (15-37) U/L ALT (14-59) U/L Alkaline Phosphatase (46-116) U/L Ammonia (11-32) umol/L Troponin I (0.00-0.056) ng/mL NT-Pro-B Natriuret Pep (0-450) pg/mL Total Protein (6.4-8.2) g/dl Albumin (3.4-5.0) g/dl Globulin gm/dL Albumin/Globulin Ratio (1-2) Lipase (73-393) U/L Free T4 (0.76-1.46) ng/dL TSH 3rd Generation (0.358-3.74) uIU/mL Ethyl Alcohol (0.00) gm% Meds: Medications Generic Name Dose Route Start Last Admin Trade Name Freq PRN Reason Stop Dose Admin Sodium Chloride 10 ml 10/07/17 23:14 10/07/17 23:37 Saline Flush FLUSH 10 ml ASDIRECTED PRN Administration Keep Vein Open Discontinued Medications Generic Name Dose Route Start Last Admin Trade Name Freq PRN Reason Stop Dose Admin Albuterol/Ipratropium 3 ml 10/07/17 23:57 10/08/17 00:08 Duoneb 3.0-0.5 Mg/3 Ml NEB 10/07/17 23:58 3 ml ONETIME ONE Administration Doxycycline Hyclate 100 mg 10/08/17 00:06 10/08/17 00:32 Vibramycin PO 10/08/17 00:07 100 mg ONETIME ONE Administration Insulin Human Regular 6 unit 10/08/17 06:00 Humulin R SUBCUT BIDAC JAZZY Insulin Human Regular 6 unit 10/08/17 00:52 Humulin R SUBCUT 10/08/17 00:53 NOW STA Methylprednisolone Sodium Succinate 125 mg 10/08/17 00:06 10/08/17 00:33 Solu-Medrol IVPUSH 10/08/17 00:07 125 mg ONETIME ONE Administration - Re-Assessments/Exams Free Text/Narrative Re-Assessment/Exam: 10/08/17 00:[address] Ghotra who agrees to admit the patient. She is breathing comfortably on Bipap and is in no distress. Normal mental status. Discussed results including hyperglycemia with family. She has no prior history of diabetes. She has had polydipsia/polyuria recently, which had been attributed to her diuretic use but seems likely in part due to her elevated blood sugar. Will give 6 unites of subcutaneous insulin. Her chest x ray shows marked scoliosis and compression of R lung, no significant change from 2 days ago. WBC mildly elevated at 13, improved compared to two days ago. Mildly elevated creatinine at 1.6 (baseline appears to be around 1.3). Electrolytes otherwise normal. ABG showed partially compensated respiratory acidosis with PH of 7.3 and PCO2 of 70's, Bipap initiated. Her breathing was more comfortable after Bipap and neb. Departure - Departure Time of Disposition: : Disposition: Admitted As Inpatient 65 Clinical Impression: Acute hypoxemic respiratory failure, Respiratory acidosis, Acute hyperglycemia , Acute kidney injury - Discharge Information Referrals: Eriak Mccracken MD [Primary Care Provider] - Forms: ED Department Discharge - My Orders Last 24 Hours: My Active Orders 10/07/17 23:14 EKG 12 Lead [EKG Documentation Completion] [RC] STAT Peripheral IV Care [RC] . DIRECTED Chest 1V Frontal [CR] Stat Head wo Cont [CT] Stat UA W/MICROSCOPIC [URIN] Stat Sodium Chloride 0.9% [Saline Flush] 10 ml FLUSH ASDIRECTED PRN Blood Culture x2 Reflex Set [OM.PC] Stat Peripheral IV Insertion Adult [OM.PC] Routine 10/07/17 23:15 Peripheral IV Care [RC] . DIRECTED 10/07/17 23:30 CULTURE BLOOD [BC] Stat 10/07/17 23:40 CULTURE BLOOD [BC] Stat 10/07/17 23:56 RT BiPAP/CPAP [RC] ASDIRECTED 10/07/17 23:57 RT Aerosol Therapy [RC] ASDIRECTED 10/08/17 00:55 INFLUENZA A+B AG SCREEN [RM] Stat MYCOPLASMA PNEUMONIAE IGM AB [CHEM] Stat - Assessment/Plan Last 24 Hours: My Active Orders 10/07/17 23:14 EKG 12 Lead [EKG Documentation Completion] [RC] STAT Peripheral IV Care [RC] . DIRECTED Chest 1V Frontal [CR] Stat Head wo Cont [CT] Stat UA W/MICROSCOPIC [URIN] Stat Sodium Chloride 0.9% [Saline Flush] 10 ml FLUSH ASDIRECTED PRN Blood Culture x2 Reflex Set [OM.PC] Stat Peripheral IV Insertion Adult [OM.PC] Routine 10/07/17 23:15 Peripheral IV Care [RC] . DIRECTED 10/07/17 23:30 CULTURE BLOOD [BC] Stat 10/07/17 23:40 CULTURE BLOOD [BC] Stat 10/07/17 23:56 RT BiPAP/CPAP [RC] ASDIRECTED 10/07/17 23:57 RT Aerosol Therapy [RC] ASDIRECTED 10/08/17 00:55 INFLUENZA A+B AG SCREEN [RM] Stat MYCOPLASMA PNEUMONIAE IGM AB [CHEM] Stat
[2017-10-07] MEDS ORDERED: Albuterol/Ipratropium 3.0-0.5 MG/3 ML Neb Soln NEB ONE (23:57)
[2017-10-08] MEDS ORDERED: methylPREDNISolone Sodium Succinate 125 MG/2 ML SDV IVPUSH ONE (00:06)
[2017-10-08] MEDS ORDERED: Doxycycline 100 MG Cap PO ONE (00:06)
[2017-10-08] MEDS ORDERED: Insulin Regular, Human 100 Units/ML 3 ML Vial SUBCUT STA (00:52)
[2017-10-08] MEDS ORDERED: Ondansetron 4 MG/2 ML SDV IVPUSH PRN (02:44)
[2017-10-08] MEDS ORDERED: Sodium Chloride 0.9% 1,000 ML IV SCH (02:45)
[2017-10-08] MEDS ORDERED: Albuterol 0.083% 2.5 MG/3 ML Neb Soln NEB PRN (03:00)
[2017-10-08] MEDS ORDERED: Insulin Regular, Human 100 Units/ML 3 ML Vial SUBCUT SCH (06:00)
[2017-10-08] MEDS: Albuterol/Ipratropium 3.0-0.5 MG/3 ML Neb Soln NEB SCH ×4 (06:18→20:30)
[2017-10-08] MEDS: Insulin Aspart 100 Units/ML 3 ML Pen SUBCUT SCH ×4 (09:17→21:42)
--- NOTE | 2017-10-08 09:39 | PCM.HP ---
H&P History of Present Illness - General Date of Service: 10/08/17 Admit Problem/Dx: Admission Diagnosis/Problem Admission Diagnosis/Problem Hypoxia Source of Information: Patient, Provider History Limitations: Reports: No Limitations - History of Present Illness Initial Comments - Free Text/Narative: 82 year old female who lives with her returned to the ED with confusion. She was seen 24 hours [employer], was treated for a UTI and had been taking her Keflex as scheduled. However on the day of her return ED visit she was confused. The patient was hypoxic and had acute respiratory distress which subsequently resolved. She was started on BIPAP with improved air exchange. The patient will be admitted for COPD exacerbation; she requires baseline O2 2 l/ min. Onset of Symptoms: Reports: Gradual Symptom Onset Date: 10/05/17 Duration of Symptoms: Reports: Day(s):, Getting Worse Location: Reports: Chest, Generalized Severity: Moderate Improves with: Reports: Medication Worsens with: Reports: None Associated Symptoms: Reports: Confusion, Malaise, Shortness of Breath, Weakness - Related Data Allergies/Adverse Reactions: Allergies Allergy/AdvReac Type Severity Reaction Status Date / Time atorvastatin calcium AdvReac Muscle Verified 10/08/17 02:12 [From Lipitor] Aches Home Medications: Home Meds Ammonium Lactate [Amlactin 12% Lotion] 500 gm TP BID PRN 05/29/14 [History] Aspirin [Halfprin] 81 mg PO DAILY 05/29/14 [History] B2/Vit A,C & E/Lut/Zeaxanth/Mn [Icaps] 2 tab PO QAM 05/29/14 [History] Budesonide/Formoterol [Symbicort 160-4.5 MCG] 2 puff INH BID 05/29/14 [History] Cholecalciferol (Vitamin D3) [Vitamin D3] 1,000 unit PO DAILY 05/29/14 [History] Cholestyramine/Aspartame [Questran Light Powder] 4 gm PO DAILY PRN 05/29/14 [ History] Furosemide [Lasix] 80 mg PO DAILY 05/29/14 [History] Levothyroxine 25 mcg PO ACBRK 05/29/14 [History] Magnesium Oxide 400 mg PO BEDTIME 05/29/14 [History] Metoprolol Tartrate 50 mg PO BID 05/29/14 [History] Potassium Chloride [Klor-Con M20] 10 meq PO DAILY 05/29/14 [History] Simvastatin [Zocor] 40 mg PO BEDTIME 05/29/14 [History] Albuterol [IJD: Albuterol] 2.5 mg INH Q8H PRN 10/06/17 [History] Calcium Carbonate [Calcium] 1,500 mg PO DAILY 10/06/17 [History] Cephalexin 500 mg PO QID #28 tablet 10/06/17 [Rx] Naproxen 220 mg PO ASDIRECTED PRN 10/06/17 [History] Omeprazole 20 mg PO DAILY 10/08/17 [History] Past Medical History HEENT History: Reports: Impaired Vision, Other (See Below) Other HEENT History: pt wears glasses, reports to have upper denture and lower partial Cardiovascular History: Reports: High Cholesterol, Hypertension Respiratory History: Reports: COPD, Sleep Apnea, Other (See Below) Other Respiratory History: wear oxygen at home Musculoskeletal History: Reports: Other (See Below) Endocrine/Metabolic History: Reports: Hypothyroidism, Obesity/BMI 30+ Dermatologic History: Reports: Other (See Below) Other Dermatologic History: open sore to buttocks currently see admission assessment - Past Surgical History HEENT Surgical History: Reports: None Cardiovascular Surgical History: Reports: None Respiratory Surgical History: Reports: None GI Surgical History: Reports: Cholecystectomy Female Surgical History: Reports: Hysterectomy, Oophorectomy Endocrine Surgical History: Reports: None Dermatological Surgical History: Reports: None Social & Family History - Family History Family Medical History: Noncontributory - Tobacco Use Smoking Status *Q: Former Smoker Used Tobacco, but Quit: No Month/Year Tobacco Last Used: 64 yrs Second Hand Smoke Exposure: No - Caffeine Use Caffeine Use: Reports: Coffee, Soda, Tea - Recreational Drug Use Recreational Drug Use: No - Living Situation & Occupation Living situation: Reports: , with Spouse Occupation: Retired H&P Review of Systems - Review of Systems: Review Of Systems: See Below General: Reports: Malaise, Weakness HEENT: Reports: No Symptoms Pulmonary: Reports: Shortness of Breath, Wheezing Cardiovascular: Reports: No Symptoms Gastrointestinal: Reports: No Symptoms Genitourinary: Reports: No Symptoms Musculoskeletal: Reports: No Symptoms Skin: Reports: No Symptoms Psychiatric: Reports: Confusion Neurological: Reports: No Symptoms Hematologic/Lymphatic: Reports: No Symptoms Immunologic: Reports: No Symptoms Exam - Exam Exam: See Below - Vital Signs Vital Signs: Last Vital Signs Temp 36.7 C 10/08/17 01:45 Pulse 73 10/08/17 07:59 Resp 18 10/08/17 01:45 BP 96/75 10/08/17 07:59 Pulse Ox 96 10/08/17 09:07 Weight: 86.636 kg - Exam Quality Assessment: Supplemental Oxygen General: Alert, Oriented, Cooperative HEENT: Conjunctiva Clear, Nares Patent, Normal Nasal Septum, Pupils Equal, Pupils Reactive, PERRLA Neck: Trachea Midline Lungs: Normal Respiratory Effort, Decreased Breath Sounds Cardiovascular: Regular Rate, Regular Rhythm GI/Abdominal Exam: Normal Bowel Sounds, Soft, Non-Tender, No Organomegaly, No Distention (Female) Exam: Deferred Rectal (Female) Exam: Deferred Back Exam: Normal Inspection Extremities: Normal Inspection, Non-Tender, Normal Capillary Refill Skin: Warm Neurological: Cranial Nerves Intact, Normal Speech Neuro Extensive - Mental Status: Alert, Oriented x3, Normal Mood/Affect, Normal Cognition, Memory Intact Neuro Extensive - Motor, Sensory, Reflexes: CN II-XII Intact Psychiatric: Alert, Normal Affect, Normal Mood - Patient Data Lab Results Last 24 hrs: Laboratory Results - last 24 hr 10/07/17 10/07/17 10/07/17 Range/Units 23:30 23:30 23:30 WBC 13.03 H (3.98-10.04) K/mm3 RBC 3.59 L (3.98-5.22) M/mm3 Hgb 10.5 L (11.2-15.7) gm/L Hct 35.6 (34.1-44.9) % MCV 99.2 H (79.4-94.8) fl MCH 29.2 (25.6-32.2) pg MCHC 29.5 L (32.2-35.5) g/dl RDW Std Deviation 52.0 H (36.4-46.3) fL Plt Count 296 (182-369) K/mm3 MPV 9.5 (9.4-12.3) fl Neut % (Auto) 79.7 H (34.0-71.1) % Lymph % (Auto) 8.6 L (19.3-51.7) % Keith % (Auto) 9.9 (4.7-12.5) % Eos % (Auto) 1.3 (0.7-5.8) Baso % (Auto) 0.2 (0.1-1.2) % Neut # (Auto) 10.39 H (1.56-6.13) K/mm3 Lymph # (Auto) 1.12 L (1.18-3.74) K/mm3 Keith # (Auto) 1.29 H (0.24-0.36) K/mm3 Eos # (Auto) 0.17 (0.04-0.36) K/mm3 Baso # (Auto) 0.02 (0.01-0.08) K/mm3 Manual Slide Review Abnormal smear PT 10.5 (9.5-12.1) SECONDS INR 0.96 Puncture Site ABG pH (7.35-7.45) ABG pCO2 (35.0-45.0) mmHg ABG pO2 (80.0-100.0) mmHg ABG HCO3 (22.0-26.0) meq/L ABG O2 Saturation (96.0-97.0) % ABG Base Excess (-2-2.0) Nikolai Test A-a Gradient mmHg O2 Delivery Device Oxygen Flow Rate FiO2 (21.00-100.00) % Sodium 141 (136-145) mEq/L Potassium 3.3 L (3.5-5.1) mEq/L Chloride 99 (98-107) mEq/L Carbon Dioxide 38 H (21-32) mEq/L Anion Gap 7.3 (5-15) BUN 30 H (7-18) mg/dL Creatinine 1.6 H (0.55-1.02) mg/dL Est Cr Clr Drug Dosing 20.10 mL/min Estimated GFR (MDRD) 31 (>60) mL/min BUN/Creatinine Ratio 18.8 H (14-18) Glucose 299 H (83-115) mg/dL POC Glucose (83-110) mg/dL Lactic Acid (0.4-2.0) mmol/L Calcium 9.0 (8.5-10.1) mg/dL Magnesium 1.9 (1.8-2.4) mg/dl Total Bilirubin 0.3 (0.2-1.0) mg/dL AST 39 H (15-37) U/L ALT 41 (14-59) U/L Alkaline Phosphatase 151 H (46-116) U/L Ammonia (11-32) umol/L Troponin I < 0.017 (0.00-0.056) ng/mL C-Reactive Protein (<1.0) mg/dL NT-Pro-B Natriuret Pep (0-450) pg/mL Total Protein 6.4 (6.4-8.2) g/dl Albumin 2.1 L (3.4-5.0) g/dl Globulin 4.3 gm/dL Albumin/Globulin Ratio 0.5 L (1-2) Lipase 122 (73-393) U/L Free T4 1.11 (0.76-1.46) ng/dL TSH 3rd Generation 2.108 (0.358-3.74) uIU/mL Ethyl Alcohol 0.00 (0.00) gm% Mycoplasma pneumon IgM (NEGATIVE) 10/07/17 10/07/17 10/07/17 Range/Units 23:30 23:30 23:30 WBC (3.98-10.04) K/mm3 RBC (3.98-5.22) M/mm3 Hgb (11.2-15.7) gm/L Hct (34.1-44.9) % MCV (79.4-94.8) fl MCH (25.6-32.2) pg MCHC (32.2-35.5) g/dl RDW Std Deviation (36.4-46.3) fL Plt Count (182-369) K/mm3 MPV (9.4-12.3) fl Neut % (Auto) (34.0-71.1) % Lymph % (Auto) (19.3-51.7) % Keith % (Auto) (4.7-12.5) % Eos % (Auto) (0.7-5.8) Baso % (Auto) (0.1-1.2) % Neut # (Auto) (1.56-6.13) K/mm3 Lymph # (Auto) (1.18-3.74) K/mm3 Keith # (Auto) (0.24-0.36) K/mm3 Eos # (Auto) (0.04-0.36) K/mm3 Baso # (Auto) (0.01-0.08) K/mm3 Manual Slide Review PT (9.5-12.1) SECONDS INR Puncture Site ABG pH (7.35-7.45) ABG pCO2 (35.0-45.0) mmHg ABG pO2 (80.0-100.0) mmHg ABG HCO3 (22.0-26.0) meq/L ABG O2 Saturation (96.0-97.0) % ABG Base Excess (-2-2.0) Nikolai Test A-a Gradient mmHg O2 Delivery Device Oxygen Flow Rate FiO2 (21.00-100.00) % Sodium (136-145) mEq/L Potassium (3.5-5.1) mEq/L Chloride (98-107) mEq/L Carbon Dioxide (21-32) mEq/L Anion Gap (5-15) BUN (7-18) mg/dL Creatinine (0.55-1.02) mg/dL Est Cr Clr Drug Dosing mL/min Estimated GFR (MDRD) (>60) mL/min BUN/Creatinine Ratio (14-18) Glucose (83-115) mg/dL POC Glucose (83-110) mg/dL Lactic Acid 1.1 (0.4-2.0) mmol/L Calcium (8.5-10.1) mg/dL Magnesium (1.8-2.4) mg/dl Total Bilirubin (0.2-1.0) mg/dL AST (15-37) U/L ALT (14-59) U/L Alkaline Phosphatase (46-116) U/L Ammonia 21 (11-32) umol/L Troponin I (0.00-0.056) ng/mL C-Reactive Protein (<1.0) mg/dL NT-Pro-B Natriuret Pep 6009 H (0-450) pg/mL Total Protein (6.4-8.2) g/dl Albumin (3.4-5.0) g/dl Globulin gm/dL Albumin/Globulin Ratio (1-2) Lipase (73-393) U/L Free T4 (0.76-1.46) ng/dL TSH 3rd Generation (0.358-3.74) uIU/mL Ethyl Alcohol (0.00) gm% Mycoplasma pneumon IgM (NEGATIVE) 05/12/18 05/12/18 05/13/18 Range/Units 23:30 23:33 05:30 WBC (3.98-10.04) K/mm3 RBC (3.98-5.22) M/mm3 Hgb (11.2-15.7) gm/L Hct (34.1-44.9) % MCV (79.4-94.8) fl MCH (25.6-32.2) pg MCHC (32.2-35.5) g/dl RDW Std Deviation (36.4-46.3) fL Plt Count (182-369) K/mm3 MPV (9.4-12.3) fl Neut % (Auto) (34.0-71.1) % Lymph % (Auto) (19.3-51.7) % Keith % (Auto) (4.7-12.5) % Eos % (Auto) (0.7-5.8) Baso % (Auto) (0.1-1.2) % Neut # (Auto) (1.56-6.13) K/mm3 Lymph # (Auto) (1.18-3.74) K/mm3 Keith # (Auto) (0.24-0.36) K/mm3 Eos # (Auto) (0.04-0.36) K/mm3 Baso # (Auto) (0.01-0.08) K/mm3 Manual Slide Review PT (9.5-12.1) SECONDS INR Puncture Site Rt radial ABG pH 7.33 L (7.35-7.45) ABG pCO2 73.1 H* (35.0-45.0) mmHg ABG pO2 70.0 L (80.0-100.0) mmHg ABG HCO3 37.0 H (22.0-26.0) meq/L ABG O2 Saturation 94.1 L (96.0-97.0) % ABG Base Excess 9.4 H (-2-2.0) Nikolai Test Positive A-a Gradient 18 mmHg O2 Delivery Device Cannula Oxygen Flow Rate 2.0 FiO2 28.00 (21.00-100.00) % Sodium (136-145) mEq/L Potassium (3.5-5.1) mEq/L Chloride (98-107) mEq/L Carbon Dioxide (21-32) mEq/L Anion Gap (5-15) BUN (7-18) mg/dL Creatinine (0.55-1.02) mg/dL Est Cr Clr Drug Dosing mL/min Estimated GFR (MDRD) (>60) mL/min BUN/Creatinine Ratio (14-18) Glucose (83-115) mg/dL POC Glucose (83-110) mg/dL Lactic Acid 0.9 (0.4-2.0) mmol/L Calcium (8.5-10.1) mg/dL Magnesium (1.8-2.4) mg/dl Total Bilirubin (0.2-1.0) mg/dL AST (15-37) U/L ALT (14-59) U/L Alkaline Phosphatase (46-116) U/L Ammonia (11-32) umol/L Troponin I (0.00-0.056) ng/mL C-Reactive Protein (<1.0) mg/dL NT-Pro-B Natriuret Pep (0-450) pg/mL Total Protein (6.4-8.2) g/dl Albumin (3.4-5.0) g/dl Globulin gm/dL Albumin/Globulin Ratio (1-2) Lipase (73-393) U/L Free T4 (0.76-1.46) ng/dL TSH 3rd Generation (0.358-3.74) uIU/mL Ethyl Alcohol (0.00) gm% Mycoplasma pneumon IgM Negative (NEGATIVE) 10/08/17 10/08/17 10/08/17 Range/Units 05:52 05:52 06:45 WBC 11.02 H (3.98-10.04) K/mm3 RBC 3.54 L (3.98-5.22) M/mm3 Hgb 10.4 L (11.2-15.7) gm/L Hct 35.2 (34.1-44.9) % MCV 99.4 H (79.4-94.8) fl MCH 29.4 (25.6-32.2) pg MCHC 29.5 L (32.2-35.5) g/dl RDW Std Deviation 51.4 H (36.4-46.3) fL Plt Count 288 (182-369) K/mm3 MPV 9.6 (9.4-12.3) fl Neut % (Auto) 91.7 H (34.0-71.1) % Lymph % (Auto) 6.0 L (19.3-51.7) % Keith % (Auto) 1.9 L (4.7-12.5) % Eos % (Auto) 0 L (0.7-5.8) Baso % (Auto) 0.1 (0.1-1.2) % Neut # (Auto) 10.11 H (1.56-6.13) K/mm3 Lymph # (Auto) 0.66 L (1.18-3.74) K/mm3 Keith # (Auto) 0.21 L (0.24-0.36) K/mm3 Eos # (Auto) 0.00 L (0.04-0.36) K/mm3 Baso # (Auto) 0.01 (0.01-0.08) K/mm3 Manual Slide Review Abnormal smear PT (9.5-12.1) SECONDS INR Puncture Site ABG pH (7.35-7.45) ABG pCO2 (35.0-45.0) mmHg ABG pO2 (80.0-100.0) mmHg ABG HCO3 (22.0-26.0) meq/L ABG O2 Saturation (96.0-97.0) % ABG Base Excess (-2-2.0) Nikolai Test A-a Gradient mmHg O2 Delivery Device Oxygen Flow Rate FiO2 (21.00-100.00) % Sodium 139 (136-145) mEq/L Potassium 3.6 (3.5-5.1) mEq/L Chloride 99 (98-107) mEq/L Carbon Dioxide 39 H (21-32) mEq/L Anion Gap 4.6 L (5-15) BUN 32 H (7-18) mg/dL Creatinine 1.6 H (0.55-1.02) mg/dL Est Cr Clr Drug Dosing 20.10 mL/min Estimated GFR (MDRD) 31 (>60) mL/min BUN/Creatinine Ratio 20.0 H (14-18) Glucose 169 H (83-115) mg/dL POC Glucose 197 H (83-110) mg/dL Lactic Acid (0.4-2.0) mmol/L Calcium 9.3 (8.5-10.1) mg/dL Magnesium 2.2 (1.8-2.4) mg/dl Total Bilirubin (0.2-1.0) mg/dL AST (15-37) U/L ALT (14-59) U/L Alkaline Phosphatase (46-116) U/L Ammonia (11-32) umol/L Troponin I (0.00-0.056) ng/mL C-Reactive Protein 21.4 H* (<1.0) mg/dL NT-Pro-B Natriuret Pep (0-450) pg/mL Total Protein (6.4-8.2) g/dl Albumin (3.4-5.0) g/dl Globulin gm/dL Albumin/Globulin Ratio (1-2) Lipase (73-393) U/L Free T4 (0.76-1.46) ng/dL TSH 3rd Generation (0.358-3.74) uIU/mL Ethyl Alcohol (0.00) gm% Mycoplasma pneumon IgM (NEGATIVE) Result Diagrams: 10/08/17 05:52 10/08/17 05:52 Johnny Results Last 24 hrs: Microbiology 10/08/17 00:10 Influenza Type A Antigen Screen - Final Nasopharyngeal Swab NEGATIVE INFLUENZA A VIRUS AG Influenza Type B Antigen Screen - Final NEGATIVE INFLUENZA B VIRUS AG - Problem List (1) Acute hyperglycemia SNOMED Code(s): 957293415 ICD Code: R73.9 - HYPERGLYCEMIA, UNSPECIFIED Status: Acute Current Visit : Yes (2) Acute hypoxemic respiratory failure SNOMED Code(s): 848877517 ICD Code: J96.01 - ACUTE RESPIRATORY FAILURE WITH HYPOXIA Status: Acute Current Visit: Yes (3) Acute kidney injury SNOMED Code(s): 29434256 ICD Code: N17.9 - ACUTE KIDNEY FAILURE, UNSPECIFIED Status: Acute Current Visit: Yes (4) Respiratory acidosis SNOMED Code(s): 02904044 ICD Code: E87.2 - ACIDOSIS Status: Acute Current Visit: Yes (5) Generalized weakness SNOMED Code(s): 94745045 ICD Code: R53.1 - WEAKNESS Status: Acute Current Visit: No (6) Hypokalemia SNOMED Code(s): 05870848 ICD Code: E87.6 - HYPOKALEMIA Status: Acute Current Visit: No (7) Urinary tract infection SNOMED Code(s): 51671972 ICD Code: N39.0 - URINARY TRACT INFECTION, SITE NOT SPECIFIED Status: Acute Current Visit: No Qualifiers: Urinary tract infection type: acute cystitis Hematuria presence: without hematuria Qualified Code(s): N30.00 - Acute cystitis without hematuria (8) Diabetes mellitus SNOMED Code(s): 38315139 ICD Code: E11.9 - TYPE 2 DIABETES MELLITUS WITHOUT COMPLICATIONS Status: Acute Current Visit: Yes Qualifiers: Diabetes mellitus type: type 2 (9) Hyperlipidemia due to type 2 diabetes mellitus SNOMED Code(s): 140908038149359 ICD Code: E11.69 - TYPE 2 DIABETES MELLITUS WITH OTHER SPECIFIED COMPLICATION ; E78.5 - HYPERLIPIDEMIA, UNSPECIFIED Status: Chronic Current Visit: Yes (10) Body mass index (bmi) 36.0-36.9, adult SNOMED Code(s): 011991159 ICD Code: Z68.36 - BODY MASS INDEX (BMI) 36.0-36.9, ADULT Status: Chronic Current Visit: Yes (11) COPD (chronic obstructive pulmonary disease) SNOMED Code(s): 30584985 ICD Code: J44.9 - CHRONIC OBSTRUCTIVE PULMONARY DISEASE, UNSPECIFIED Status : Acute Current Visit: Yes (12) Mental status change SNOMED Code(s): 158409029 ICD Code: R41.82 - ALTERED MENTAL STATUS, UNSPECIFIED Status: Acute Current Visit: Yes (13) Sleep apnea SNOMED Code(s): 08025712 ICD Code: G47.30 - SLEEP APNEA, UNSPECIFIED Status: Chronic Current Visit : Yes Problem List Initiated/Reviewed/Updated: Yes Orders Last 24hrs: Active Orders 24 hr Category Date Time Status Admission Status [Patient Status] [ADT] Routine ADT 10/08/17 01:03 Active Activity as Tolerated [RC] 10,22 Care 10/08/17 04:47 Active Blood Glucose Check, Bedside [RC] QIDACANDBED Care 10/08/17 02:25 Active Oxygen Therapy [RC] ASDIRECTED Care 10/08/17 02:05 Active RT Aerosol Therapy [RC] ASDIRECTED Care 10/08/17 02:58 Active RT BiPAP/CPAP [RC] ASDIRECTED Care 10/07/17 23:56 Active ADA Diabetic [[employer] Diet] [DIET Diet 10/08/17 Breakfast Active ] Chest 1V Frontal [CR] Stat Exams 10/07/17 23:14 Taken Head wo Cont [CT] Stat Exams 10/07/17 23:14 Taken CULTURE BLOOD [BC] Stat Lab 10/07/17 23:30 Received CULTURE BLOOD [BC] Stat Lab 10/07/17 23:40 Received INFLUENZA A+B AG SCREEN [RM] Stat Lab 10/08/17 00:10 Ordered RESPIRATORY PANEL BY PCR [MREF] Routine Lab 10/08/17 02:10 Received UA W/MICROSCOPIC [URIN] Stat Lab 10/07/17 23:14 Ordered Acetaminophen [Tylenol] Med 10/08/17 02:43 Active 650 mg PO Q6H PRN Albuterol [Proventil Neb Soln] Med 10/08/17 03:00 Active 2.5 mg NEB Q4HRRT PRN Albuterol/Ipratropium [DuoNeb 3.0-0.5 MG/3 ML] Med 10/08/17 06:00 Active 3 ml NEB QIDRT Benzonatate [Tessalon Perles] Med 10/08/17 02:41 Active 100 mg PO QID PRN Insulin Aspart [NovoLOG] Med 10/08/17 07:00 Active See Protocol SUBCUT QIDACANDBED Ondansetron [Zofran] Med 10/08/17 02:44 Active 4 mg IVPUSH Q8H PRN Sodium Chloride 0.9% [Normal Saline] 1,000 ml Med 10/08/17 02:45 Active IV ASDIRECTED Sodium Chloride 0.9% [Saline Flush] Med 10/07/17 23:14 Active 10 ml FLUSH ASDIRECTED PRN Blood Culture x2 Reflex Set [OM.PC] Stat Oth 10/07/17 23:14 Ordered Isolation [COMM] Routine Oth 10/08/17 02:40 Ordered Peripheral IV Insertion Adult [OM.PC] Routine Oth 10/07/17 23:14 Ordered Code Status [Resuscitation Status] Routine Resus Stat 10/08/17 02:11 Ordered Medication Orders Acetaminophen (Tylenol) 650 mg PO Q6H PRN PRN Reason: Pain/Fever Albuterol (Proventil Neb Soln) 2.5 mg NEB Q4HRRT PRN PRN Reason: Shortness of Breath Albuterol/Ipratropium (Duoneb 3.0-0.5 Mg/3 Ml) 3 ml NEB QIDRT JAZZY Last Admin: 10/08/17 09:07 Dose: 3 ml Admin: 10/08/17 06:18 Dose: 3 ml Benzonatate (Tessalon Perles) 100 mg PO QID PRN PRN Reason: Cough Sodium Chloride (Normal Saline) 1,000 mls @ 75 mls/hr IV ASDIRECTED JAZZY Last Admin: 10/08/17 04:44 Dose: 75 mls/hr Insulin Aspart (Novolog) 0 unit SUBCUT QIDACANDBED [facility]; Protocol Last Admin: 10/08/17 09:17 Dose: 1 unit Ondansetron HCl (Zofran) 4 mg IVPUSH Q8H PRN PRN Reason: Nausea/Vomiting Sodium Chloride (Saline Flush) 10 ml FLUSH ASDIRECTED PRN PRN Reason: Keep Vein Open Last Admin: 10/07/17 23:37 Dose: 10 ml Assessment/Plan Comment:: Impression: Acute mental status change Acute respiratory distress with resp acidosis Acute exacerbation of COPD on home O2, 2l/m New onset diabetes mellitus type 2 CKD, stage 4-5; acute renal failure Acute UTI on Keflex Elevated BNP Chronic Obesity HTN HLD Hypothyroidism JORGE ALBERTO Scoliosis Plan: IVF IV ATB (zithro/rocephin) Urine Cx Home meds Daily labs DM education Dietary consult (ADA/Wgt loss) Consult PT/OT/CM DVT/GI prophylaxis
[2017-10-08] MEDS ORDERED: Metoprolol Tartrate 5 MG/5 ML SDV IVPUSH PRN (09:47)
[2017-10-08] MEDS ORDERED: Cholestyramine/Aspartame Powder 4 GM Packet PO PRN (09:49)
[2017-10-08] MEDS ORDERED: Metoprolol Tartrate 5 MG/5 ML SDV IVPUSH ONE (09:50)
[2017-10-08] MEDS ORDERED: Metoprolol Tartrate 5 MG/5 ML SDV ONE (09:52)
[2017-10-08] MEDS ORDERED: Doxycycline 100 MG in Sodium Chloride 0.9% 100 ML IV SCH (10:00)
[2017-10-08] MEDS: Metoprolol Tartrate 50 MG Tab PO SCH ×2 (10:23→21:04)
--- NOTE | 2017-10-08 14:14 | CT ---
Head CT Technique: Multiple axial sections through the brain were obtained. Intravenous contrast was not utilized. Comparison: Prior head CT study of 10/06/17. Findings: Ventricles along with basal cisterns and sulci over the convexities are within normal limits for the patient's age. 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 This finding is seen on the right side. No other abnormal parenchymal densities are seen. No evidence of intracranial hemorrhage. No midline shift or mass effect is seen. Bone window settings were reviewed which show the visualized sinuses to appear clear. No acute calvarial abnormality is seen. Impression: 1. Stable noncontrast head CT from previous study of 10/06/17. No acute abnormality is seen. Diagnostic code #2 I agree with preliminary report issued by [facility] ([facility] preliminary report dictated on 10/08/17, 1:25 AM Central Time)
--- NOTE | 2017-10-08 14:14 | CR ---
Chest: Portable view of the chest was obtained. Comparison: Prior chest x-ray of 10/06/17. Chronic change is noted within both lung bases. No acute parenchymal change is otherwise seen. Scoliosis is noted within the spine. Heart size and mediastinum are within normal limits for portable technique. Impression: 1. Nothing acute is appreciated on portable chest x-ray. Diagnostic code #2
--- NOTE | 2017-10-08 14:14 | CR ---
Chest: Two views of the chest were obtained. Comparison: Prior chest x-ray performed performed on the same day as well as prior chest x-ray of 10/06/17. Heart size is normal. Tortuous thoracic aorta is seen. Chronic change is again seen within both lung bases. Nothing acute is definitely seen within either lung. Stable scoliosis is noted. Impression: 1. Chest x-ray felt to be stable. Nothing acute is seen at this time. Diagnostic code #2
[2017-10-08] MEDS ORDERED: Furosemide 40 MG/4 ML VIAL IVPUSH ONE (14:54)
[2017-10-08] MEDS ORDERED: cefTRIAXone 2 GM in Sodium Chloride 0.9% 100 ML IV SCH (15:00)
[2017-10-08] MEDS ORDERED: hydrALAZINE 20 MG/ML SDV IVPUSH PRN (15:44)
[2017-10-08] MEDS: Azithromycin 500 MG in Sodium Chloride 0.9% 250 ML IV SCH (17:34)
[2017-10-08] MEDS ORDERED: Azithromycin 500 MG AdvVial IV SCH (18:00)
[2017-10-08] MEDS: Formoterol/Mometasone 200-5 MCG 8.8 GM Inhaler IH SCH (20:30)
[2017-10-08] MEDS: Magnesium Oxide 400 MG Tab PO SCH (20:56)
[2017-10-08] MEDS: Simvastatin 40 MG Tab PO SCH (21:00)
[2017-10-08] MEDS: Benzonatate 100 MG Cap PO PRN (21:41)
[2017-10-09] MEDS: Levothyroxine 25 MCG Tab PO SCH (05:46)
[2017-10-09] MEDS: Albuterol/Ipratropium 3.0-0.5 MG/3 ML Neb Soln NEB SCH ×4 (06:27→20:05)
[2017-10-09] MEDS: Formoterol/Mometasone 200-5 MCG 8.8 GM Inhaler IH SCH ×2 (06:27→20:05)
[2017-10-09] MEDS: Insulin Aspart 100 Units/ML 3 ML Pen SUBCUT SCH ×4 (08:52→21:29)
[2017-10-09] MEDS: Calcium Carbonate 500 MG Tab.Chew PO SCH (08:53)
[2017-10-09] MEDS: Metoprolol Tartrate 50 MG Tab PO SCH ×3 (08:53→18:09)
[2017-10-09] MEDS: Cholecalciferol (Vitamin D3) 1,000 Unit Tab PO SCH (08:54)
[2017-10-09] MEDS: Potassium Chloride 10 MEQ Tab.ER PO SCH (08:54)
[2017-10-09] MEDS: Aspirin 81 MG Tab.EC PO SCH (08:54)
[2017-10-09] MEDS ORDERED: Furosemide 20 MG/2 ML VIAL IVPUSH ONE (09:00)
--- NOTE | 2017-10-09 10:58 | PCM.PN ---
- General Info Date of Service: 10/09/17 Admission Dx/Problem (Free Text): Admission Diagnosis/Problem Admission Diagnosis/Problem Hypoxia Subjective Update: In to see Sara today. She is lying in bed visiting with her . Overall she is doing quite well. She has no complaints except that she has some phlegm she is having a hard time coughing up. I told her we will try some Mucinex to help with that. She has been sleeping well. Good appetite. Ambulating. Pain is controlled. No confusion, shortness of breath, palpitations, or chest pain. She does have some left pedal edema 1+, states it is usually in her right leg. Urinating. Incentive Spirometry. Acapella. Per nursing, her heart rate has been 140's to 160's even after Lopressor. Discussed with Dr. Eagle and will give another dose now and shorten the scheduled dose from Q6H to Q4H. No other a concerns from nursing. Functional Status: Reports: Pain Controlled, Tolerating Diet, Ambulating, Urinating, Incentive Spirometry - Review of Systems General: Reports: No Symptoms. Denies: Fever, Chills HEENT: Reports: No Symptoms Pulmonary: Reports: Cough, Sputum (clear, has been difficult to get out). Denies: Shortness of Breath, Pleuritic Chest Pain Cardiovascular: Reports: Edema (1+ left leg). Denies: Chest Pain, Palpitations , Dyspnea on Exertion, Orthopnea Gastrointestinal: Reports: No Symptoms. Denies: Abdominal Pain, Diarrhea, Nausea, Vomiting Genitourinary: Reports: No Symptoms. Denies: Dysuria, Frequency, Burning, Pain Musculoskeletal: Reports: No Symptoms Skin: Reports: No Symptoms Neurological: Reports: No Symptoms. Denies: Confusion Psychiatric: Reports: No Symptoms. Denies: Confusion - Patient Data Vitals - Most Recent: Last Vital Signs Temp 98.2 F 10/09/17 04:33 Pulse 120 H 10/09/17 08:53 Resp 22 H 10/09/17 04:33 BP 105/88 10/09/17 08:53 Pulse Ox 100 10/09/17 06:29 Weight - Most Recent: 193 lb 9.6 oz I&O - Last 24 Hours: Intake & Output 10/08/17 10/09/17 10/09/17 22:59 06:59 14:59 Intake Total 2449 500 180 Output Total 100 Balance 2349 500 180 Lab Results Last 24 Hours: Laboratory Results - last 24 hr 10/08/17 10/08/17 10/08/17 Range/Units 11:14 11:30 16:45 WBC (3.98-10.04) K/mm3 RBC (3.98-5.22) M/mm3 Hgb (11.2-15.7) gm/L Hct (34.1-44.9) % MCV (79.4-94.8) fl MCH (25.6-32.2) pg MCHC (32.2-35.5) g/dl RDW Std Deviation (36.4-46.3) fL Plt Count (182-369) K/mm3 MPV (9.4-12.3) fl Neut % (Auto) (34.0-71.1) % Lymph % (Auto) (19.3-51.7) % [place] % (Auto) (4.7-12.5) % Eos % (Auto) (0.7-5.8) Baso % (Auto) (0.1-1.2) % Neut # (Auto) (1.56-6.13) K/mm3 Lymph # (Auto) (1.18-3.74) K/mm3 [place] # (Auto) (0.24-0.36) K/mm3 Eos # (Auto) (0.04-0.36) K/mm3 Baso # (Auto) (0.01-0.08) K/mm3 Manual Slide Review Sodium (136-145) mEq/L Potassium (3.5-5.1) mEq/L Chloride (98-107) mEq/L Carbon Dioxide (21-32) mEq/L Anion Gap (5-15) BUN (7-18) mg/dL Creatinine (0.55-1.02) mg/dL Est Cr Clr Drug Dosing mL/min Estimated GFR (MDRD) (>60) mL/min BUN/Creatinine Ratio (14-18) Glucose (83-115) mg/dL POC Glucose 304 H 364 H (83-110) mg/dL Hemoglobin A1c (4.50-6.20) % Lactic Acid (0.4-2.0) mmol/L Calcium (8.5-10.1) mg/dL Magnesium (1.8-2.4) mg/dl NT-Pro-B Natriuret Pep (0-450) pg/mL Triglycerides (<150) mg/dL Cholesterol (<200) mg/dL LDL Cholesterol Direct (<100) mg/dL HDL Cholesterol (40-59) mg/dL Urine Color Yellow (Yellow) Urine Appearance Slt cloudy H (Clear) Urine pH 6.0 (5.0-8.0) Ur Specific [place] 1.020 (1.005-1.030) Urine Protein 1+ H (Negative) Urine Glucose (UA) Negative (Negative) Urine Ketones Negative (Negative) Urine Occult Blood Trace-intact H (Negative) Urine Nitrite Negative (Negative) Urine Bilirubin Negative (Negative) Urine Urobilinogen 0.2 (0.2-1.0) Ur Leukocyte Esterase 1+ H (Negative) Urine RBC 5-10 H (0-5) /hpf Urine WBC 5-10 H (0-5) /hpf Ur Epithelial Cells 0-5 (0-5) /hpf Urine Bacteria Few (FEW) /hpf Hyaline Casts 0-5 (0-5) /lpf Urine Mucus Few (FEW) /hpf 10/08/17 10/09/17 10/09/17 Range/Units 21:14 05:52 05:55 WBC 14.45 H (3.98-10.04) K/mm3 RBC 3.45 L (3.98-5.22) M/mm3 Hgb 10.2 L (11.2-15.7) gm/L Hct 33.8 L (34.1-44.9) % MCV 98.0 H (79.4-94.8) fl MCH 29.6 (25.6-32.2) pg MCHC 30.2 L (32.2-35.5) g/dl RDW Std Deviation 49.9 H (36.4-46.3) fL Plt Count 337 (182-369) K/mm3 MPV 9.8 (9.4-12.3) fl Neut % (Auto) 83.5 H (34.0-71.1) % Lymph % (Auto) 8.2 L (19.3-51.7) % Menard % (Auto) 7.9 (4.7-12.5) % Eos % (Auto) 0.1 L (0.7-5.8) Baso % (Auto) 0.0 L (0.1-1.2) % Neut # (Auto) 12.06 H (1.56-6.13) K/mm3 Lymph # (Auto) 1.19 (1.18-3.74) K/mm3 Menard # (Auto) 1.14 H (0.24-0.36) K/mm3 Eos # (Auto) 0.02 L (0.04-0.36) K/mm3 Baso # (Auto) 0.00 L (0.01-0.08) K/mm3 Manual Slide Review Abnormal smear Sodium (136-145) mEq/L Potassium (3.5-5.1) mEq/L Chloride (98-107) mEq/L Carbon Dioxide (21-32) mEq/L Anion Gap (5-15) BUN (7-18) mg/dL Creatinine (0.55-1.02) mg/dL Est Cr Clr Drug Dosing mL/min Estimated GFR (MDRD) (>60) mL/min BUN/Creatinine Ratio (14-18) Glucose (83-115) mg/dL POC Glucose 209 H 160 H (83-110) mg/dL Hemoglobin A1c (4.50-6.20) % Lactic Acid (0.4-2.0) mmol/L Calcium (8.5-10.1) mg/dL Magnesium (1.8-2.4) mg/dl NT-Pro-B Natriuret Pep (0-450) pg/mL Triglycerides (<150) mg/dL Cholesterol (<200) mg/dL LDL Cholesterol Direct (<100) mg/dL HDL Cholesterol (40-59) mg/dL Urine Color (Yellow) Urine Appearance (Clear) Urine pH (5.0-8.0) Ur Specific [place] (1.005-1.030) Urine Protein (Negative) Urine Glucose (UA) (Negative) Urine Ketones (Negative) Urine Occult Blood (Negative) Urine Nitrite (Negative) Urine Bilirubin (Negative) Urine Urobilinogen (0.2-1.0) Ur Leukocyte Esterase (Negative) Urine RBC (0-5) /hpf Urine WBC (0-5) /hpf Ur Epithelial Cells (0-5) /hpf Urine Bacteria (FEW) /hpf Hyaline Casts (0-5) /lpf Urine Mucus (FEW) /hpf 10/09/17 10/09/17 10/09/17 Range/Units 05:55 05:55 05:55 WBC (3.98-10.04) K/mm3 RBC (3.98-5.22) M/mm3 Hgb (11.2-15.7) gm/L Hct (34.1-44.9) % MCV (79.4-94.8) fl MCH (25.6-32.2) pg MCHC (32.2-35.5) g/dl RDW Std Deviation (36.4-46.3) fL Plt Count (182-369) K/mm3 MPV (9.4-12.3) fl Neut % (Auto) (34.0-71.1) % Lymph % (Auto) (19.3-51.7) % Menard % (Auto) (4.7-12.5) % Eos % (Auto) (0.7-5.8) Baso % (Auto) (0.1-1.2) % Neut # (Auto) (1.56-6.13) K/mm3 Lymph # (Auto) (1.18-3.74) K/mm3 Menard # (Auto) (0.24-0.36) K/mm3 Eos # (Auto) (0.04-0.36) K/mm3 Baso # (Auto) (0.01-0.08) K/mm3 Manual Slide Review Sodium 141 (136-145) mEq/L Potassium 2.8 L (3.5-5.1) mEq/L Chloride 100 (98-107) mEq/L Carbon Dioxide 40 H (21-32) mEq/L Anion Gap 3.8 L (5-15) BUN 37 H (7-18) mg/dL Creatinine 1.4 H (0.55-1.02) mg/dL Est Cr Clr Drug Dosing 22.97 mL/min Estimated GFR (MDRD) 36 (>60) mL/min BUN/Creatinine Ratio 26.4 H (14-18) Glucose 150 H (83-115) mg/dL POC Glucose (83-110) mg/dL Hemoglobin A1c (4.50-6.20) % Lactic Acid 1.4 (0.4-2.0) mmol/L Calcium 9.5 (8.5-10.1) mg/dL Magnesium 2.1 (1.8-2.4) mg/dl NT-Pro-B Natriuret Pep 4898 H (0-450) pg/mL Triglycerides 64 (<150) mg/dL Cholesterol 123 (<200) mg/dL LDL Cholesterol Direct 71 (<100) mg/dL HDL Cholesterol 40.0 (40-59) mg/dL Urine Color (Yellow) Urine Appearance (Clear) Urine pH (5.0-8.0) Ur Specific [place] (1.005-1.030) Urine Protein (Negative) Urine Glucose (UA) (Negative) Urine Ketones (Negative) Urine Occult Blood (Negative) Urine Nitrite (Negative) Urine Bilirubin (Negative) Urine Urobilinogen (0.2-1.0) Ur Leukocyte Esterase (Negative) Urine RBC (0-5) /hpf Urine WBC (0-5) /hpf Ur Epithelial Cells (0-5) /hpf Urine Bacteria (FEW) /hpf Hyaline Casts (0-5) /lpf Urine Mucus (FEW) /hpf / Range/Units 05:55 WBC (3.98-10.04) K/mm3 RBC (3.98-5.22) M/mm3 Hgb (11.2-15.7) gm/L Hct (34.1-44.9) % MCV (79.4-94.8) fl MCH (25.6-32.2) pg MCHC (32.2-35.5) g/dl RDW Std Deviation (36.4-46.3) fL Plt Count (182-369) K/mm3 MPV (9.4-12.3) fl Neut % (Auto) (34.0-71.1) % Lymph % (Auto) (19.3-51.7) % [place] % (Auto) (4.7-12.5) % Eos % (Auto) (0.7-5.8) Baso % (Auto) (0.1-1.2) % Neut # (Auto) (1.56-6.13) K/mm3 Lymph # (Auto) (1.18-3.74) K/mm3 [place]ard # (Auto) (0.24-0.36) K/mm3 Eos # (Auto) (0.04-0.36) K/mm3 Baso # (Auto) (0.01-0.08) K/mm3 Manual Slide Review Sodium (136-145) mEq/L Potassium (3.5-5.1) mEq/L Chloride (98-107) mEq/L Carbon Dioxide (21-32) mEq/L Anion Gap (5-15) BUN (7-18) mg/dL Creatinine (0.55-1.02) mg/dL Est Cr Clr Drug Dosing mL/min Estimated GFR (MDRD) (>60) mL/min BUN/Creatinine Ratio (14-18) Glucose (83-115) mg/dL POC Glucose (83-110) mg/dL Hemoglobin A1c 6.20 (4.50-6.20) % Lactic Acid (0.4-2.0) mmol/L Calcium (8.5-10.1) mg/dL Magnesium (1.8-2.4) mg/dl NT-Pro-B Natriuret Pep (0-450) pg/mL Triglycerides (<150) mg/dL Cholesterol (<200) mg/dL LDL Cholesterol Direct (<100) mg/dL HDL Cholesterol (40-59) mg/dL Urine Color (Yellow) Urine Appearance (Clear) Urine pH (5.0-8.0) Ur Specific [place] (1.005-1.030) Urine Protein (Negative) Urine Glucose (UA) (Negative) Urine Ketones (Negative) Urine Occult Blood (Negative) Urine Nitrite (Negative) Urine Bilirubin (Negative) Urine Urobilinogen (0.2-1.0) Ur Leukocyte Esterase (Negative) Urine RBC (0-5) /hpf Urine WBC (0-5) /hpf Ur Epithelial Cells (0-5) /hpf Urine Bacteria (FEW) /hpf Hyaline Casts (0-5) /lpf Urine Mucus (FEW) /hpf Johnny Results Last 24 Hours: Microbiology 10/07/17 23:30 Aerobic Blood Culture - Preliminary Blood - Venous NO GROWTH AFTER 1 DAY Anaerobic Blood Culture - Preliminary NO GROWTH AFTER 1 DAY 10/07/17 23:40 Aerobic Blood Culture - Preliminary Blood - Venous - Lab Draw NO GROWTH AFTER 1 DAY Anaerobic Blood Culture - Preliminary NO GROWTH AFTER 1 DAY Med Orders - Current: Current Medications Acetaminophen (Tylenol) 650 mg PO Q6H PRN PRN Reason: Pain/Fever Albuterol (Proventil Neb Soln) 2.5 mg NEB Q4HRRT PRN PRN Reason: Shortness of Breath Last Admin: 10/09/17 03:10 Dose: 2.5 mg Albuterol/Ipratropium (Duoneb 3.0-0.5 Mg/3 Ml) 3 ml NEB QIDRT [facility] Last Admin: 10/09/17 10:13 Dose: 3 ml Aspirin (Halfprin) 81 mg PO DAILY [facility] Last Admin: 10/09/17 08:54 Dose: 81 mg Benzonatate (Tessalon Perles) 100 mg PO QID PRN PRN Reason: Cough Last Admin: 10/08/17 21:41 Dose: 100 mg Calcium Carbonate/Glycine (Tums) 1,500 mg PO DAILY [facility] Last Admin: 10/09/17 08:53 Dose: 1,500 mg Cholecalciferol (Vitamin D3) 1,000 units PO DAILY [facility] Last Admin: 10/09/17 08:54 Dose: 1,000 units Cholestyramine Resin (Prevalite Packet) 4 gm PO DAILY PRN PRN Reason: DIARRHEA Hydralazine HCl (Apresoline) 20 mg IVPUSH Q6H PRN PRN Reason: Hypertension Azithromycin 500 mg/ Sodium (Chloride) 250 mls @ 250 mls/hr IV Q24H [facility] Last Admin: 10/08/17 17:34 Dose: 250 mls/hr Ceftriaxone Sodium 2 gm/ (Dextrose/Water) 100 mls @ 100 mls/hr IV Q24H [facility] Stop: 10/09/17 15:59 Insulin Aspart (Novolog) 0 unit SUBCUT QIDACANDBED [facility]; Protocol Last Admin: 10/09/17 08:52 Dose: 1 unit Levothyroxine Sodium (Levothyroxine) 25 mcg PO ACBRK [facility] Last Admin: 10/09/17 05:46 Dose: 25 mcg Magnesium Oxide (Magnesium Oxide) 400 mg PO BEDTIME [facility] Last Admin: 10/08/17 20:56 Dose: 400 mg Metoprolol Tartrate (Lopressor) 5 mg IVPUSH Q6H PRN PRN Reason: HR>120 Last Admin: 10/09/17 07:21 Dose: 5 mg Metoprolol Tartrate (Lopressor) 50 mg PO TIDPC [facility] Last Admin: 10/09/17 08:53 Dose: 50 mg Mometasone Furoate/Formoterol Fumar (Dulera 200-5 Mcg) 0 puff IH BIDRT [facility] Last Admin: 10/09/17 06:27 Dose: 2 puff Ondansetron HCl (Zofran) 4 mg IVPUSH Q8H PRN PRN Reason: Nausea/Vomiting Potassium Chloride (Klor-Con 10) 10 meq PO DAILY [facility] Last Admin: 10/09/17 08:54 Dose: 10 meq Potassium Chloride (Pharmacy To Dose - Potassium Replacement) 0 dose .XX ASDIRECTED PRN PRN Reason: RX TO WATCH K LEVELS Potassium Chloride (Klor-Con M20) 40 meq PO Q4H [facility] Stop: 10/09/17 19:01 Simvastatin (Zocor) 40 mg PO BEDTIME [facility] Last Admin: 10/08/17 21:00 Dose: 40 mg Sodium Chloride (Saline Flush) 10 ml FLUSH ASDIRECTED PRN PRN Reason: Keep Vein Open Last Admin: 10/07/17 23:37 Dose: 10 ml Discontinued Medications Albuterol/Ipratropium (Duoneb 3.0-0.5 Mg/3 Ml) 3 ml NEB ONETIME ONE Stop: 10/07/17 23:58 Last Admin: 10/08/17 00:08 Dose: 3 ml Doxycycline Hyclate (Vibramycin) 100 mg PO ONETIME ONE Stop: 10/08/17 00:07 Last Admin: 10/08/17 00:32 Dose: 100 mg Furosemide (Lasix) 40 mg IVPUSH NOW ONE Stop: 10/08/17 14:55 Last Admin: 10/08/17 15:28 Dose: 40 mg Furosemide (Lasix) 20 mg IVPUSH ONETIME ONE Stop: 10/09/17 09:01 Last Admin: 10/09/17 08:53 Dose: 20 mg Sodium Chloride (Normal Saline) 1,000 mls @ 75 mls/hr IV ASDIRECTED [facility] Last Admin: 10/08/17 04:44 Dose: 75 mls/hr Doxycycline Hyclate 100 mg/ (Sodium Chloride) 100 mls @ 100 mls/hr IV Q12HR [facility] Last Admin: 10/08/17 11:44 Dose: 100 mls/hr Ceftriaxone Sodium 2 gm/ (Sodium Chloride) 100 mls @ 100 mls/hr IV Q24H [facility] Last Admin: 10/08/17 15:28 Dose: 100 mls/hr Insulin Human Regular (Humulin R) 6 unit SUBCUT BIDAC [facility] Insulin Human Regular (Humulin R) 6 unit SUBCUT NOW STA Stop: 10/08/17 00:53 Last Admin: 10/08/17 00:57 Dose: 6 units Methylprednisolone Sodium Succinate (Solu-Medrol) 125 mg IVPUSH ONETIME ONE Stop: 10/08/17 00:07 Last Admin: 10/08/17 00:33 Dose: 125 mg Metoprolol Tartrate (Lopressor) 50 mg PO BID [facility] Last Admin: 10/08/17 21:04 Dose: 50 mg Metoprolol Tartrate (Lopressor) 5 mg IVPUSH ONETIME ONE Stop: 10/08/17 09:51 Last Admin: 10/08/17 09:54 Dose: 5 mg Metoprolol Tartrate (Lopressor) Confirm Administered Dose 5 mg .ROUTE .STK-MED ONE Stop: 10/08/17 09:53 Last Admin: 10/08/17 10:16 Dose: Not Given - Exam Quality Assessment: Supplemental Oxygen (2L nasal cannula) General: Alert, Oriented, Cooperative, No Acute Distress HEENT: Pupils Equal, Pupils Reactive, EOMI, Mucous Membr. Moist/[place] Neck: Supple Lungs: Normal Respiratory Effort, Decreased Breath Sounds Cardiovascular: Irregular Rhythm (A Fib), Tachycardia GI/Abdominal Exam: Normal Bowel Sounds, Soft, Non-Tender, No Organomegaly, No Distention, No Abnormal Bruit, No Mass, Pelvis Stable (Female) Exam: Deferred Back Exam: Normal Inspection, Full Range of Motion Extremities: Normal Range of Motion, Non-Tender, Normal Capillary Refill, Pedal Edema (1+ left sided) Peripheral Pulses: 2+: Posterior Tibial (L), Posterior Tibial (R), Dorsalis Pedis (L), Dorsalis Pedis (R) Skin: Warm, Dry, Intact Neurological: No New Focal Deficit Psy/Mental Status: Alert, Normal Affect, Normal Mood - Problem List & Annotations (1) Acute hypoxemic respiratory failure SNOMED Code(s): 447703395 Code(s): J96.01 - ACUTE RESPIRATORY FAILURE WITH HYPOXIA Status: Acute Priority: High Current Visit: Yes (2) COPD (chronic obstructive pulmonary disease) SNOMED Code(s): 54083083 Code(s): J44.9 - CHRONIC OBSTRUCTIVE PULMONARY DISEASE, UNSPECIFIED Status : Chronic Priority: High Current Visit: Yes Qualifiers: COPD type: unspecified COPD Qualified Code(s): J44.9 - Chronic obstructive pulmonary disease, unspecified (3) Diabetes mellitus SNOMED Code(s): 75229558 Code(s): E11.9 - TYPE 2 DIABETES MELLITUS WITHOUT COMPLICATIONS Status: Acute Priority: Medium Current Visit: Yes Qualifiers: Diabetes mellitus type: type 2 Diabetes mellitus 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 terminal 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 insulin use: without assisted use Diabetes mellitus complication status: with hyperglycemia Qualified Code(s): E11.65 - Type 2 diabetes mellitus with hyperglycemia (4) Urinary tract infection SNOMED Code(s): 62540743 Code(s): N39.0 - URINARY TRACT INFECTION, SITE NOT SPECIFIED Status: Acute Priority: Medium Current Visit: No Qualifiers: Urinary tract infection type: acute cystitis Hematuria presence: with hematuria Qualified Code(s): N30.01 - Acute cystitis with hematuria (5) Elevated brain natriuretic peptide (BNP) level SNOMED Code(s): 180583298, 658158698 Code(s): R79.89 - OTHER SPECIFIED ABNORMAL FINDINGS OF BLOOD CHEMISTRY Status: Acute Priority: High Current Visit: Yes (6) Acute hyperglycemia SNOMED Code(s): 750569389 Code(s): R73.9 - HYPERGLYCEMIA, UNSPECIFIED Status: Acute Priority: Medium Current Visit: Yes (7) Acute kidney injury SNOMED Code(s): 92396231 Code(s): N17.9 - ACUTE KIDNEY FAILURE, UNSPECIFIED Status: Resolved Priority: High Current Visit: Yes (8) Respiratory acidosis SNOMED Code(s): 09606443 Code(s): E87.2 - ACIDOSIS Status: Acute Priority: High Current Visit: Yes (9) Sleep apnea SNOMED Code(s): 15774141 Code(s): G47.30 - SLEEP APNEA, UNSPECIFIED Status: Chronic Priority: Medium Current Visit: Yes Qualifiers: Sleep apnea type: unspecified type Qualified Code(s): G47.30 - Sleep apnea , unspecified (10) Body mass index (bmi) 36.0-36.9, adult SNOMED Code(s): 276225149 Code(s): Z68.36 - BODY MASS INDEX (BMI) 36.0-36.9, ADULT Status: Chronic Priority: Low Current Visit: Yes (11) CKD (chronic kidney disease), stage III SNOMED Code(s): 895415750 Code(s): N18.3 - CHRONIC KIDNEY DISEASE, STAGE 3 (MODERATE) Status: Chronic Priority: Medium Current Visit: Yes (12) Atrial fibrillation with RVR SNOMED Code(s): 552460499517424 Code(s): I48.91 - UNSPECIFIED ATRIAL FIBRILLATION Status: Acute Priority : High Current Visit: Yes (13) HTN (hypertension) SNOMED Code(s): 97772972 Code(s): I10 - ESSENTIAL (PRIMARY) HYPERTENSION Status: Chronic Priority : Low Current Visit: No Qualifiers: Hypertension type: unspecified Qualified Code(s): I10 - Essential (primary ) hypertension (14) HLD (hyperlipidemia) SNOMED Code(s): 90253529 Code(s): E78.5 - HYPERLIPIDEMIA, UNSPECIFIED Status: Chronic Priority: Low Current Visit: No Qualifiers: Hyperlipidemia type: unspecified Qualified Code(s): E78.5 - Hyperlipidemia , unspecified (15) Hypothyroid SNOMED Code(s): 00996557 Code(s): E03.9 - HYPOTHYROIDISM, UNSPECIFIED Status: Chronic Priority: Medium Current Visit: Yes Qualifiers: Hypothyroidism type: unspecified Qualified Code(s): E03.9 - Hypothyroidism , unspecified (16) Scoliosis SNOMED Code(s): 003809657 Code(s): M41.9 - SCOLIOSIS, UNSPECIFIED Status: Chronic Priority: Low Current Visit: Yes Qualifiers: Scoliosis type: unspecified scoliosis Spinal region: unspecified Qualified Code(s): M41.9 - Scoliosis, unspecified - Problem List Review Problem List Initiated/Reviewed/Updated: Yes - My Orders Last 24 Hours: My Active Orders 10/09/17 09:54 Potassium Rep Pharmacy to Dose [Pharmacy to Dose - Potassium Replacement] 0 dose .XX ASDIRECTED PRN 10/09/17 11:00 Potassium Chloride [Klor-Con M20] 40 meq PO Q4H - Plan Plan:: I/P: Acute: Afib with RVR -EKG showed this AM -Clinically asymptomatic; no chest pain, palpitations -HR 140's to 160's per nursing -TSH levels in ED--> normal range; on levothyroxine for Hypothyroidism -Lopressor 50mg TID; PRN Q6H--> Q4H -Monitor CAP vs COPD exacerbation, improving -Risk factors: h/o COPD on home O2 2L and BIPAP -Acute respiratory distress with resp acidosis in ED -O2 sat 80% at home per family-->98% now on 2L -Productive cough, clear sputum -Leukocytosis: WBC 13.03-->11.02-->14.45 -CRP 21.4-->12.3 -CXR in ED--> no acute findings -Repeat CXR in 24-48hrs -Blood cultures--> No growth after 1 day -RVP, S. pneumo--> pending results -Mycoplasma, Influenza--> negative -RT/Nebs/IS/FV/Acapella -Azithromychin, Ceftriaxone--> D/C Ceftriaxone today after dose is given, start Zithromax PO -Mucinex for productive cough -Adjust O2 as needed to maintain >92% -IVF as needed, must balance with elevated BNP -Supportive care New onset DM 2 -Recent polydipsia/polyuria and Hyperglycemia (299) in ED -Insulin given in ED -A1C 6.2 -Monitor glucose: 299-->169-->150 -Bedside glucose checks QID AC and BED -Novolog -ADA diet -Dietary Consult, Diabetes Education Elevated BNP, improving -h/o right-sided pedal edema per pt, takes 80mg Lasix QDaily at home--> hold for now -1+ left pedal edema today -BNP 6009-->4898 -ECHO this AM--> pending results -Lasix as needed, no scheduled dose due to low BP -Monitor Mild Anemia -Most likely 2/2 CKD -RBC 3.45; Hgb 10.5; Hct 33.8 -Monitor -Replace with PRBCs as needed CKD, stage 3 -Acute Injury on Chronic, improving -eGFR: 31-->36 -Cr: 1.6-->1.4 -BUN 30-->32-->37 -Monitor Resolved: Acute mental status change -Confused in ED -Most likely 2/2 hypoxia Acute UTI on Keflex, improved to resolved -h/o UTI diagnosed 10/06/17 in ED, was taking Keflex--> D/C'd -Currently on IV Rocephin here -Clinically asymptomatic -Repeat U/A improved: 1+ leuk esterase, Few bacteria, Trace blood Chronic: AFib Obesity HTN HLD Hypothyroidism--> On Levothyroxine JORGE ALBERTO Scoliosis Plan: Admit to Med Surg on telemetry Droplet Precautions Routine AM labs Electrolyte Replacement as needed Home meds DM education Dietary consult (ADA/Wgt loss) Consult PT/OT DVT/GI prophylaxis (YUN bravo/ Pepcid) Pt is DNR/DNI; PCP: Erika Mccracken
[2017-10-09] MEDS ORDERED: Metoprolol Tartrate 5 MG/5 ML SDV IVPUSH PRN (11:01)
[2017-10-09] MEDS: Potassium Chloride 20 MEQ Tab.ER PO SCH ×3 (11:45→18:09)
[2017-10-09] MEDS: guaiFENesin 600 MG Tab.ER PO PRN (12:00)
[2017-10-09] MEDS: Famotidine 20 MG Tab PO SCH (16:04)
[2017-10-09] MEDS: Azithromycin 500 MG in Sodium Chloride 0.9% 250 ML IV SCH (18:10)
[2017-10-09] MEDS ORDERED: acetaZOLAMIDE 250 MG Tab PO SCH (19:45)
[2017-10-09] MEDS: Simvastatin 40 MG Tab PO SCH (21:23)
[2017-10-09] MEDS: Magnesium Oxide 400 MG Tab PO SCH (21:23)
[2017-10-10] MEDS: Acetaminophen 325 MG Tab PO PRN ×2 (01:34→19:43)
[2017-10-10] MEDS: Benzonatate 100 MG Cap PO PRN ×2 (01:34→17:30)
[2017-10-10] MEDS: Formoterol/Mometasone 200-5 MCG 8.8 GM Inhaler IH SCH ×2 (05:01→20:48)
[2017-10-10] MEDS: Albuterol/Ipratropium 3.0-0.5 MG/3 ML Neb Soln NEB SCH ×2 (05:01→20:48)
[2017-10-10] MEDS: Levothyroxine 25 MCG Tab PO SCH (05:19)
[2017-10-10] MEDS: Insulin Aspart 100 Units/ML 3 ML Pen SUBCUT SCH ×4 (07:01→22:49)
--- NOTE | 2017-10-10 08:46 | PCM.PN ---
- General Info Date of Service: 10/10/17 Admission Dx/Problem (Free Text): Admission Diagnosis/Problem Admission Diagnosis/Problem Hypoxia Subjective Update: In to see Sara. We had a lengthy discussion about her care. She is doing well. Her O2 has been weaned down to baseline. She requires 4L at night which is her baseline. She still has a significant cough which is becoming more productive. Labs are trending downward. She has no complaints or concerns. Nursing has no concerns. She has been walking with PT/OT. Functional Status: Reports: Pain Controlled, Tolerating Diet, Ambulating, Urinating, Incentive Spirometry. Denies: New Symptoms - Review of Systems General: Reports: Weakness (improving ). Denies: Fever, Fatigue, Malaise HEENT: Reports: No Symptoms Pulmonary: Reports: Shortness of Breath (baseline ), Cough, Sputum, Wheezing Cardiovascular: Reports: No Symptoms. Denies: Chest Pain, Edema, Lightheadedness Gastrointestinal: Reports: No Symptoms. Denies: Abdominal Pain, Constipation, Diarrhea, Nausea, Vomiting Genitourinary: Reports: No Symptoms Musculoskeletal: Reports: No Symptoms Skin: Reports: No Symptoms Neurological: Reports: No Symptoms Psychiatric: Reports: No Symptoms - Patient Data Vitals - Most Recent: Last Vital Signs Temp 97.5 F 10/10/17 07:28 Pulse 71 10/10/17 07:28 Resp 12 10/10/17 07:28 BP 111/71 10/10/17 07:28 Pulse Ox 99 10/10/17 07:28 Weight - Most Recent: 192 lb 9.6 oz I&O - Last 24 Hours: Intake & Output 10/09/17 10/10/17 10/10/17 22:59 06:59 14:59 Intake Total 1450 800 Output Total 900 Balance 1450 -100 Lab Results Last 24 Hours: Laboratory Results - last 24 hr 10/09/17 10/09/17 10/09/17 Range/Units 05:55 11:31 16:58 WBC (3.98-10.04) K/mm3 RBC (3.98-5.22) M/mm3 Hgb (11.2-15.7) gm/L Hct (34.1-44.9) % MCV (79.4-94.8) fl MCH (25.6-32.2) pg MCHC (32.2-35.5) g/dl RDW Std Deviation (36.4-46.3) fL Plt Count (182-369) K/mm3 MPV (9.4-12.3) fl Neut % (Auto) (34.0-71.1) % Lymph % (Auto) (19.3-51.7) % Gilchrist % (Auto) (4.7-12.5) % Eos % (Auto) (0.7-5.8) Baso % (Auto) (0.1-1.2) % Neut # (Auto) (1.56-6.13) K/mm3 Lymph # (Auto) (1.18-3.74) K/mm3 Gilchrist # (Auto) (0.24-0.36) K/mm3 Eos # (Auto) (0.04-0.36) K/mm3 Baso # (Auto) (0.01-0.08) K/mm3 Manual Slide Review Sodium (136-145) mEq/L Potassium (3.5-5.1) mEq/L Chloride (98-107) mEq/L Carbon Dioxide (21-32) mEq/L Anion Gap (5-15) BUN (7-18) mg/dL Creatinine (0.55-1.02) mg/dL Est Cr Clr Drug Dosing mL/min Estimated GFR (MDRD) (>60) mL/min BUN/Creatinine Ratio (14-18) Glucose (83-115) mg/dL POC Glucose 154 H 174 H (83-110) mg/dL Lactic Acid (0.4-2.0) mmol/L Calcium (8.5-10.1) mg/dL Magnesium (1.8-2.4) mg/dl C-Reactive Protein 12.3 H* (<1.0) mg/dL NT-Pro-B Natriuret Pep (0-450) pg/mL 10/09/17 10/10/17 10/10/17 Range/Units 21:28 06:02 06:02 WBC (3.98-10.04) K/mm3 RBC (3.98-5.22) M/mm3 Hgb (11.2-15.7) gm/L Hct (34.1-44.9) % MCV (79.4-94.8) fl MCH (25.6-32.2) pg MCHC (32.2-35.5) g/dl RDW Std Deviation (36.4-46.3) fL Plt Count (182-369) K/mm3 MPV (9.4-12.3) fl Neut % (Auto) (34.0-71.1) % Lymph % (Auto) (19.3-51.7) % Gilchrist % (Auto) (4.7-12.5) % Eos % (Auto) (0.7-5.8) Baso % (Auto) (0.1-1.2) % Neut # (Auto) (1.56-6.13) K/mm3 Lymph # (Auto) (1.18-3.74) K/mm3 Gilchrist # (Auto) (0.24-0.36) K/mm3 Eos # (Auto) (0.04-0.36) K/mm3 Baso # (Auto) (0.01-0.08) K/mm3 Manual Slide Review Sodium 146 H (136-145) mEq/L Potassium 4.0 (3.5-5.1) mEq/L Chloride 106 (98-107) mEq/L Carbon Dioxide 37 H (21-32) mEq/L Anion Gap 7.0 (5-15) BUN 37 H (7-18) mg/dL Creatinine 1.3 H (0.55-1.02) mg/dL Est Cr Clr Drug Dosing 24.74 mL/min Estimated GFR (MDRD) 39 (>60) mL/min BUN/Creatinine Ratio 28.5 H (14-18) Glucose 133 H (83-115) mg/dL POC Glucose 119 H (83-110) mg/dL Lactic Acid (0.4-2.0) mmol/L Calcium 9.3 (8.5-10.1) mg/dL Magnesium 2.1 (1.8-2.4) mg/dl C-Reactive Protein (<1.0) mg/dL NT-Pro-B Natriuret Pep 4251 H (0-450) pg/mL 10/10/17 10/10/17 10/10/17 Range/Units 06:02 06:25 06:26 WBC 10.74 H (3.98-10.04) K/mm3 RBC 3.47 L (3.98-5.22) M/mm3 Hgb 10.4 L (11.2-15.7) gm/L Hct 34.8 (34.1-44.9) % MCV 100.3 H (79.4-94.8) fl MCH 30.0 (25.6-32.2) pg MCHC 29.9 L (32.2-35.5) g/dl RDW Std Deviation 53.2 H (36.4-46.3) fL Plt Count 325 (182-369) K/mm3 MPV 9.4 (9.4-12.3) fl Neut % (Auto) 72.2 H (34.0-71.1) % Lymph % (Auto) 14.2 L (19.3-51.7) % Gilchrist % (Auto) 11.1 (4.7-12.5) % Eos % (Auto) 2.0 (0.7-5.8) Baso % (Auto) 0.1 (0.1-1.2) % Neut # (Auto) 7.77 H (1.56-6.13) K/mm3 Lymph # (Auto) 1.52 (1.18-3.74) K/mm3 Gilchrist # (Auto) 1.19 H (0.24-0.36) K/mm3 Eos # (Auto) 0.21 (0.04-0.36) K/mm3 Baso # (Auto) 0.01 (0.01-0.08) K/mm3 Manual Slide Review Abnormal smear Sodium (136-145) mEq/L Potassium (3.5-5.1) mEq/L Chloride (98-107) mEq/L Carbon Dioxide (21-32) mEq/L Anion Gap (5-15) BUN (7-18) mg/dL Creatinine (0.55-1.02) mg/dL Est Cr Clr Drug Dosing mL/min Estimated GFR (MDRD) (>60) mL/min BUN/Creatinine Ratio (14-18) Glucose (83-115) mg/dL POC Glucose 116 H (83-110) mg/dL Lactic Acid 0.9 (0.4-2.0) mmol/L Calcium (8.5-10.1) mg/dL Magnesium (1.8-2.4) mg/dl C-Reactive Protein (<1.0) mg/dL NT-Pro-B Natriuret Pep (0-450) pg/mL Johnny Results Last 24 Hours: Microbiology 10/07/17 23:30 Aerobic Blood Culture - Preliminary Blood - Venous NO GROWTH AFTER 2 DAYS Anaerobic Blood Culture - Preliminary NO GROWTH AFTER 2 DAYS 10/07/17 23:40 Aerobic Blood Culture - Preliminary Blood - Venous - Lab Draw NO GROWTH AFTER 2 DAYS Anaerobic Blood Culture - Preliminary NO GROWTH AFTER 2 DAYS 10/08/17 11:30 Streptococcus pneumoniae Antigen (M - Final Urine 10/08/17 02:10 Respiratory Virus Panel (PCR) - Final Nasopharyngeal Swab Med Orders - Current: Current Medications Acetaminophen (Tylenol) 650 mg PO Q6H PRN PRN Reason: Pain/Fever Last Admin: 10/10/17 01:34 Dose: 650 mg Acetazolamide (Diamox) 250 mg PO MOWEFR [facility] Last Admin: 10/09/17 21:27 Dose: 250 mg Albuterol (Proventil Neb Soln) 2.5 mg NEB Q4HRRT PRN PRN Reason: Shortness of Breath Last Admin: 10/09/17 03:10 Dose: 2.5 mg Albuterol/Ipratropium (Duoneb 3.0-0.5 Mg/3 Ml) 3 ml NEB BIDRT [facility] Last Admin: 10/10/17 05:01 Dose: 3 ml Aspirin (Halfprin) 81 mg PO DAILY [facility] Last Admin: 10/09/17 08:54 Dose: 81 mg Benzonatate (Tessalon Perles) 100 mg PO QID PRN PRN Reason: Cough Last Admin: 10/10/17 01:34 Dose: 100 mg Calcium Carbonate/Glycine (Tums) 1,500 mg PO DAILY [facility] Last Admin: 10/09/17 08:53 Dose: 1,500 mg Cholecalciferol (Vitamin D3) 1,000 units PO DAILY [facility] Last Admin: 10/09/17 08:54 Dose: 1,000 units Cholestyramine Resin (Prevalite Packet) 4 gm PO DAILY PRN PRN Reason: DIARRHEA Famotidine (Pepcid) 20 mg PO DAILY [facility] Last Admin: 10/09/17 16:04 Dose: 20 mg Guaifenesin (Mucinex) 600 mg PO TID PRN PRN Reason: Cough Last Admin: 10/09/17 12:00 Dose: 600 mg Hydralazine HCl (Apresoline) 20 mg IVPUSH Q6H PRN PRN Reason: Hypertension Azithromycin 500 mg/ Sodium (Chloride) 250 mls @ 250 mls/hr IV Q24H [facility] Last Admin: 10/09/17 18:10 Dose: 250 mls/hr Insulin Aspart (Novolog) 0 unit SUBCUT QIDACANDBED [facility]; Protocol Last Admin: 10/10/17 07:01 Dose: Not Given Levothyroxine Sodium (Levothyroxine) 25 mcg PO ACBRK [facility] Last Admin: 10/10/17 05:19 Dose: 25 mcg Magnesium Oxide (Magnesium Oxide) 400 mg PO BEDTIME [facility] Last Admin: 10/09/17 21:23 Dose: 400 mg Metoprolol Tartrate (Lopressor) 50 mg PO TIDPC [facility] Last Admin: 10/09/17 18:09 Dose: 50 mg Metoprolol Tartrate (Lopressor) 5 mg IVPUSH Q4H PRN PRN Reason: Tachycardia Last Admin: 10/09/17 11:08 Dose: 5 mg Mometasone Furoate/Formoterol Fumar (Dulera 200-5 Mcg) 0 puff IH BIDRT [facility] Last Admin: 10/10/17 05:01 Dose: 2 puff Ondansetron HCl (Zofran) 4 mg IVPUSH Q8H PRN PRN Reason: Nausea/Vomiting Potassium Chloride (Klor-Con 10) 10 meq PO DAILY [facility] Last Admin: 10/09/17 08:54 Dose: 10 meq Potassium Chloride (Pharmacy To Dose - Potassium Replacement) 0 dose .XX ASDIRECTED PRN PRN Reason: RX TO WATCH K LEVELS Simvastatin (Zocor) 40 mg PO BEDTIME [facility] Last Admin: 10/09/17 21:23 Dose: 40 mg Sodium Chloride (Saline Flush) 10 ml FLUSH ASDIRECTED PRN PRN Reason: Keep Vein Open Last Admin: 10/07/17 23:37 Dose: 10 ml Discontinued Medications Albuterol/Ipratropium (Duoneb 3.0-0.5 Mg/3 Ml) 3 ml NEB ONETIME ONE Stop: 10/07/17 23:58 Last Admin: 10/08/17 00:08 Dose: 3 ml Albuterol/Ipratropium (Duoneb 3.0-0.5 Mg/3 Ml) 3 ml NEB QIDRT [facility] Last Admin: 10/09/17 17:24 Dose: 3 ml Doxycycline Hyclate (Vibramycin) 100 mg PO ONETIME ONE Stop: 10/08/17 00:07 Last Admin: 10/08/17 00:32 Dose: 100 mg Furosemide (Lasix) 40 mg IVPUSH NOW ONE Stop: 10/08/17 14:55 Last Admin: 10/08/17 15:28 Dose: 40 mg Furosemide (Lasix) 20 mg IVPUSH ONETIME ONE Stop: 10/09/17 09:01 Last Admin: 10/09/17 08:53 Dose: 20 mg Sodium Chloride (Normal Saline) 1,000 mls @ 75 mls/hr IV ASDIRECTED [facility] Last Admin: 10/08/17 04:44 Dose: 75 mls/hr Doxycycline Hyclate 100 mg/ (Sodium Chloride) 100 mls @ 100 mls/hr IV Q12HR [facility] Last Admin: 10/08/17 11:44 Dose: 100 mls/hr Ceftriaxone Sodium 2 gm/ (Sodium Chloride) 100 mls @ 100 mls/hr IV Q24H [facility] Last Admin: 10/08/17 15:28 Dose: 100 mls/hr Ceftriaxone Sodium 2 gm/ (Dextrose/Water) 100 mls @ 100 mls/hr IV Q24H [facility] Stop: 10/09/17 15:59 Last Admin: 10/09/17 15:14 Dose: 100 mls/hr Insulin Human Regular (Humulin R) 6 unit SUBCUT BIDAC [facility] Insulin Human Regular (Humulin R) 6 unit SUBCUT NOW STA Stop: 10/08/17 00:53 Last Admin: 10/08/17 00:57 Dose: 6 units Methylprednisolone Sodium Succinate (Solu-Medrol) 125 mg IVPUSH ONETIME ONE Stop: 10/08/17 00:07 Last Admin: 10/08/17 00:33 Dose: 125 mg Metoprolol Tartrate (Lopressor) 50 mg PO BID [facility] Last Admin: 10/08/17 21:04 Dose: 50 mg Metoprolol Tartrate (Lopressor) 5 mg IVPUSH Q6H PRN PRN Reason: HR>120 Last Admin: 10/09/17 07:21 Dose: 5 mg Metoprolol Tartrate (Lopressor) 5 mg IVPUSH ONETIME ONE Stop: 10/08/17 09:51 Last Admin: 10/08/17 09:54 Dose: 5 mg Metoprolol Tartrate (Lopressor) Confirm Administered Dose 5 mg .ROUTE .STK-MED ONE Stop: 10/08/17 09:53 Last Admin: 10/08/17 10:16 Dose: Not Given Potassium Chloride (Klor-Con M20) 40 meq PO Q4H JAZZY Stop: 10/09/17 19:01 Last Admin: 10/09/17 18:09 Dose: 40 meq - Exam Quality Assessment: Supplemental Oxygen, DVT Prophylaxis General: Alert, Oriented, Cooperative, No Acute Distress HEENT: Pupils Equal, Pupils Reactive, EOMI, Mucous Membr. Moist/[place] Neck: Supple, Trachea Midline, No JVD Lungs: Normal Respiratory Effort, Decreased Breath Sounds, Wheezing (end expiratory ) Cardiovascular: Regular Rate, Regular Rhythm GI/Abdominal Exam: Normal Bowel Sounds, Soft, Non-Tender (Female) Exam: Deferred Back Exam: Normal Inspection, Full Range of Motion Extremities: Normal Inspection, Normal Range of Motion, Non-Tender, No Pedal Edema, Normal Capillary Refill Peripheral Pulses: 1+: Posterior Tibial (L), Posterior Tibial (R), Dorsalis Pedis (L), Dorsalis Pedis (R), 2+: Radial (L), Radial (R) Skin: Warm, Dry, Intact Neurological: No New Focal Deficit Psy/Mental Status: Alert, Normal Affect, Normal Mood - Problem List & Annotations (1) Atrial fibrillation SNOMED Code(s): 47314230 Code(s): I48.91 - UNSPECIFIED ATRIAL FIBRILLATION Status: Chronic Priority: Medium Current Visit: Yes Qualifiers: Atrial fibrillation type: chronic Qualified Code(s): I48.2 - Chronic atrial fibrillation (2) Acute hyperglycemia SNOMED Code(s): 199621128 Code(s): R73.9 - HYPERGLYCEMIA, UNSPECIFIED Status: Acute Priority: Medium Current Visit: Yes (3) Acute hypoxemic respiratory failure SNOMED Code(s): 183138787 Code(s): J96.01 - ACUTE RESPIRATORY FAILURE WITH HYPOXIA Status: Acute Priority: High Current Visit: Yes (4) Respiratory acidosis SNOMED Code(s): 31566597 Code(s): E87.2 - ACIDOSIS Status: Acute Priority: High Current Visit: Yes (5) Body mass index (bmi) 36.0-36.9, adult SNOMED Code(s): 302863051 Code(s): Z68.36 - BODY MASS INDEX (BMI) 36.0-36.9, ADULT Status: Chronic Priority: Low Current Visit: Yes (6) CKD (chronic kidney disease), stage III SNOMED Code(s): 448126134 Code(s): N18.3 - CHRONIC KIDNEY DISEASE, STAGE 3 (MODERATE) Status: Chronic Priority: Medium Current Visit: Yes (7) COPD (chronic obstructive pulmonary disease) SNOMED Code(s): 96015318 Code(s): J44.9 - CHRONIC OBSTRUCTIVE PULMONARY DISEASE, UNSPECIFIED Status : Chronic Priority: High Current Visit: Yes Qualifiers: COPD type: unspecified COPD Qualified Code(s): J44.9 - Chronic obstructive pulmonary disease, unspecified (8) Hyperlipidemia due to type 2 diabetes mellitus SNOMED Code(s): 315775417426328 Code(s): E11.69 - TYPE 2 DIABETES MELLITUS WITH OTHER SPECIFIED COMPLICATION ; E78.5 - HYPERLIPIDEMIA, UNSPECIFIED Status: Chronic Priority: Medium Current Visit: Yes (9) Hypothyroid SNOMED Code(s): 03062406 Code(s): E03.9 - HYPOTHYROIDISM, UNSPECIFIED Status: Chronic Priority: Medium Current Visit: Yes Qualifiers: Hypothyroidism type: unspecified Qualified Code(s): E03.9 - Hypothyroidism , unspecified (10) Scoliosis SNOMED Code(s): 291024239 Code(s): M41.9 - SCOLIOSIS, UNSPECIFIED Status: Chronic Priority: Low Current Visit: Yes Qualifiers: Scoliosis type: unspecified scoliosis Spinal region: unspecified Qualified Code(s): M41.9 - Scoliosis, unspecified (11) Sleep apnea SNOMED Code(s): 48664368 Code(s): G47.30 - SLEEP APNEA, UNSPECIFIED Status: Chronic Priority: Medium Current Visit: Yes Qualifiers: Sleep apnea type: unspecified type Qualified Code(s): G47.30 - Sleep apnea , unspecified (12) Acute kidney injury SNOMED Code(s): 38927934 Code(s): N17.9 - ACUTE KIDNEY FAILURE, UNSPECIFIED Status: Resolved Priority: High Current Visit: Yes (13) HLD (hyperlipidemia) SNOMED Code(s): 18794963 Code(s): E78.5 - HYPERLIPIDEMIA, UNSPECIFIED Status: Chronic Priority: Low Current Visit: No Qualifiers: Hyperlipidemia type: unspecified Qualified Code(s): E78.5 - Hyperlipidemia , unspecified (14) HTN (hypertension) SNOMED Code(s): 65764262 Code(s): I10 - ESSENTIAL (PRIMARY) HYPERTENSION Status: Chronic Priority : Low Current Visit: No Qualifiers: Hypertension type: unspecified Qualified Code(s): I10 - Essential (primary ) hypertension (15) Diabetes mellitus SNOMED Code(s): 22820318 Code(s): E11.9 - TYPE 2 DIABETES MELLITUS WITHOUT COMPLICATIONS Status: Chronic Priority: High Current Visit: Yes Qualifiers: Diabetes mellitus type: type 2 Diabetes mellitus terminal make up operator insulin use: without alf use Diabetes mellitus complication status: with hyperglycemia Qualified Code(s): E11.65 - Type 2 diabetes mellitus with hyperglycemia - Problem List Review Problem List Initiated/Reviewed/Updated: Yes - Plan Plan:: I/P: Acute: CAP vs COPD exacerbation, improving -Risk factors: h/o COPD on home O2 2L and BIPAP -Acute respiratory distress with resp acidosis in ED -O2 sat 80% at home per family-->98% now on 2L -Productive cough, clear sputum -Leukocytosis: WBC 13.03-->11.02-->14.45-->10.74 -CRP 21.4-->12.3-->8.4 -CXR in ED--> no acute findings -Repeat CXR i-> stable findings, nothing acute -Blood cultures--> No growth after 2 day -RVP, S. pneumo--> negative -Mycoplasma, Influenza--> negative -RT/Nebs/IS/FV/Acapella -Azithromychin, Ceftriaxone--> D/C Ceftriaxone today after dose is given, start Zithromax PO -Mucinex for productive cough -Adjust O2 as needed to maintain >92% -IVF as needed, must balance with elevated BNP -Supportive care New onset DM 2 -Recent polydipsia/polyuria and Hyperglycemia (299) in ED -Insulin given in ED -A1C 6.2 -Monitor glucose -Bedside glucose checks QID AC and BED -Novolog -ADA diet -Dietary Consult, Diabetes Education Elevated BNP, improving -h/o right-sided pedal edema per pt, takes 80mg Lasix QDaily at home--> hold for now -1+ left pedal edema today -BNP 6009-->4898-->4251 -ECHO this AM: 1. LVEF, by visual estimation is 60-65% 2. Mildly dilated left atrium 3. There is mild aortic valve sclerosis 4. Mild mitral valve regurgitation. 5. Mild to moderate tricuspid valve regurgitation -Lasix as needed, no scheduled dose due to low BP -Monitor Mild Anemia, stable -Most likely 2/2 CKD -Monitor -Replace with PRBCs as needed CKD, stage 3 -Acute Injury on Chronic, improving slowly -eGFR: 31-->36-->39 -Cr: 1.6-->1.4-->1.3 -BUN 30-->32-->37 -Monitor Resolved: Afib with RVR -EKG showed yesterday AM -Clinically asymptomatic; no chest pain, palpitations -HR 140's to 160's per nursing -TSH levels in ED--> normal range; on levothyroxine for Hypothyroidism -Lopressor 50mg TID; PRN Q6H--> Q4H -Monitor -No episodes since yesterday AM Acute mental status change -Confused in ED -Most likely 2/2 hypoxia Acute UTI on Keflex, improved to resolved -h/o UTI diagnosed 10/06/17 in ED, was taking Keflex--> D/C'd -Currently on IV Rocephin here -Clinically asymptomatic -Repeat U/A improved: 1+ leuk esterase, Few bacteria, Trace blood Chronic: AFib Obesity HTN HLD Hypothyroidism--> On Levothyroxine JORGE ALBERTO Scoliosis Plan: Admit to Med Surg on telemetry Droplet Precautions Routine AM labs Electrolyte Replacement as needed Home meds DM education Dietary consult (ADA/Wgt loss) Consult PT/OT DVT/GI prophylaxis (YUN bravo/ Pepcid) Pt is DNR/DNI; PCP: Erika Mccracken
[2017-10-10] MEDS: Calcium Carbonate 500 MG Tab.Chew PO SCH (09:58)
[2017-10-10] MEDS: Cholecalciferol (Vitamin D3) 1,000 Unit Tab PO SCH (09:59)
[2017-10-10] MEDS: Potassium Chloride 10 MEQ Tab.ER PO SCH (09:59)
[2017-10-10] MEDS: Famotidine 20 MG Tab PO SCH (09:59)
[2017-10-10] MEDS: Metoprolol Tartrate 50 MG Tab PO SCH ×3 (09:59→18:07)
[2017-10-10] MEDS: Aspirin 81 MG Tab.EC PO SCH (09:59)
--- NOTE | 2017-10-10 10:38 | CR ---
Chest: Two views of the chest were obtained. Comparison: Prior chest x-ray of 10/08/17. Heart size and mediastinum are stable. Central lung markings are slightly increased which are stable. No acute parenchymal densities are seen. Scoliosis is noted within the spine. Osteopenia is also seen. Impression: 1. Stable findings as noted above. Nothing acute is seen. Diagnostic code #2
[2017-10-10] MEDS ORDERED: Azithromycin 250 MG Tab PO SCH (18:00)
[2017-10-10] MEDS: Simvastatin 40 MG Tab PO SCH (20:21)
[2017-10-10] MEDS: Magnesium Oxide 400 MG Tab PO SCH (20:21)
[2017-10-10] MEDS: guaiFENesin 600 MG Tab.ER PO PRN (20:21)
[2017-10-11] MEDS: Acetaminophen 325 MG Tab PO PRN (03:12)
[2017-10-11] MEDS: Formoterol/Mometasone 200-5 MCG 8.8 GM Inhaler IH SCH (05:24)
[2017-10-11] MEDS: Albuterol/Ipratropium 3.0-0.5 MG/3 ML Neb Soln NEB SCH (05:25)
[2017-10-11] MEDS: Levothyroxine 25 MCG Tab PO SCH (05:28)
--- NOTE | 2017-10-11 06:30 | PCM.DCSUM1 ---
Discharge Summary - Hospital Course HPI Initial Comments: 82 year old female who lives with her returned to the ED with confusion. She was seen 24 hours PRODUCTION WEIGHER, was treated for a UTI and had been taking her Keflex as scheduled. However on the day of her return ED visit she was confused. The patient was hypoxic and had acute respiratory distress which subsequently resolved. She was started on BIPAP with improved air exchange. The patient will be admitted for COPD exacerbation; she requires baseline O2 2 l/ min. - Discharge Data Discharge Date: 10/11/17 (Admit date: 10/08/17) Discharge Disposition: Home, Self-Care 01 Condition: Good - Discharge Diagnosis/Problem(s) (1) Atrial fibrillation SNOMED Code(s): 23511856 ICD Code: I48.91 - UNSPECIFIED ATRIAL FIBRILLATION Status: Chronic Priority: Medium Current Visit: Yes Qualifiers: Atrial fibrillation type: chronic Qualified Code(s): I48.2 - Chronic atrial fibrillation (2) Acute hyperglycemia SNOMED Code(s): 683764675 ICD Code: R73.9 - HYPERGLYCEMIA, UNSPECIFIED Status: Acute Priority: Medium Current Visit: Yes (3) Acute hypoxemic respiratory failure SNOMED Code(s): 593340471 ICD Code: J96.01 - ACUTE RESPIRATORY FAILURE WITH HYPOXIA Status: Acute Priority: High Current Visit: Yes (4) Respiratory acidosis SNOMED Code(s): 56389614 ICD Code: E87.2 - ACIDOSIS Status: Acute Priority: High Current Visit: Yes (5) Body mass index (bmi) 36.0-36.9, adult SNOMED Code(s): 578596985 ICD Code: Z68.36 - BODY MASS INDEX (BMI) 36.0-36.9, ADULT Status: Chronic Priority: Low Current Visit: Yes (6) CKD (chronic kidney disease), stage III SNOMED Code(s): 207052718 ICD Code: N18.3 - CHRONIC KIDNEY DISEASE, STAGE 3 (MODERATE) Status: Chronic Priority: Medium Current Visit: Yes (7) COPD (chronic obstructive pulmonary disease) SNOMED Code(s): 13874149 ICD Code: J44.9 - CHRONIC OBSTRUCTIVE PULMONARY DISEASE, UNSPECIFIED Status : Chronic Priority: High Current Visit: Yes Qualifiers: COPD type: unspecified COPD Qualified Code(s): J44.9 - Chronic obstructive pulmonary disease, unspecified (8) Hyperlipidemia due to type 2 diabetes mellitus SNOMED Code(s): 240088948739780 ICD Code: E11.69 - TYPE 2 DIABETES MELLITUS WITH OTHER SPECIFIED COMPLICATION ; E78.5 - HYPERLIPIDEMIA, UNSPECIFIED Status: Chronic Priority: Medium Current Visit: Yes (9) Hypothyroid SNOMED Code(s): 15594858 ICD Code: E03.9 - HYPOTHYROIDISM, UNSPECIFIED Status: Chronic Priority: Medium Current Visit: Yes Qualifiers: Hypothyroidism type: unspecified Qualified Code(s): E03.9 - Hypothyroidism , unspecified (10) Scoliosis SNOMED Code(s): 030962224 ICD Code: M41.9 - SCOLIOSIS, UNSPECIFIED Status: Chronic Priority: Low Current Visit: Yes Qualifiers: Scoliosis type: unspecified scoliosis Spinal region: unspecified Qualified Code(s): M41.9 - Scoliosis, unspecified (11) Sleep apnea SNOMED Code(s): 36952232 ICD Code: G47.30 - SLEEP APNEA, UNSPECIFIED Status: Chronic Priority: Medium Current Visit: Yes Qualifiers: Sleep apnea type: unspecified type Qualified Code(s): G47.30 - Sleep apnea , unspecified (12) Acute kidney injury SNOMED Code(s): 92567732 ICD Code: N17.9 - ACUTE KIDNEY FAILURE, UNSPECIFIED Status: Resolved Priority: High Current Visit: Yes (13) HLD (hyperlipidemia) SNOMED Code(s): 19602780 ICD Code: E78.5 - HYPERLIPIDEMIA, UNSPECIFIED Status: Chronic Priority: Low Current Visit: No Qualifiers: Hyperlipidemia type: unspecified Qualified Code(s): E78.5 - Hyperlipidemia , unspecified (14) HTN (hypertension) SNOMED Code(s): 03676779 ICD Code: I10 - ESSENTIAL (PRIMARY) HYPERTENSION Status: Chronic Priority : Low Current Visit: No Qualifiers: Hypertension type: unspecified Qualified Code(s): I10 - Essential (primary ) hypertension (15) Diabetes mellitus SNOMED Code(s): 11650042 ICD Code: E11.9 - TYPE 2 DIABETES MELLITUS WITHOUT COMPLICATIONS Status: Chronic Priority: High Current Visit: Yes Qualifiers: Diabetes mellitus type: type 2 Diabetes mellitus correction insulin use: without car rental service 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 use Diabetes mellitus complication status: with hyperglycemia Qualified Code(s): E11.65 - Type 2 diabetes mellitus with hyperglycemia - Patient Summary/Data Consults: Consultations 10/09/17 09:00 Consult to Physical Therapy [PT Evaluation and Treatment] [CONS] Routine 10/09/17 09:30 Consult to Occupational Therapy [OT Evaluation and Treatment] [CONS] Routine 10/09/17 10:00 Consult to Dietary [Consult to Activities Manager] [CONS] Routine 10/09/17 11:00 Consult to Rotary Helper [Consult to Diabetic Nurse Specialist] [CONS] Routine Recommended Follow-up Testing/Procedures: Follow-up with PCP within 7-10 days of discharge. Hospital Course: I/P: Acute: CAP vs COPD exacerbation, improving -Risk factors: h/o COPD on home O2 2L and BIPAP -Acute respiratory distress with resp acidosis in ED -O2 sat 80% at home per family-->98% now on 2L -Productive cough, clear sputum -Leukocytosis: WBC 13.03-->11.02-->14.45-->10.74-->10.51 -CRP 21.4-->12.3-->8.4-->8.7 -CXR in ED--> no acute findings -Repeat CXR i-> stable findings, nothing acute -Blood cultures--> No growth after 2 day -RVP, S. pneumo--> negative -Mycoplasma, Influenza--> negative -RT/Nebs/IS/FV/Acapella -Azithromychin, Ceftriaxone--> D/C Ceftriaxone today after dose is given, start Zithromax PO -Mucinex for productive cough -Adjust O2 as needed to maintain >92% -IVF as needed, must balance with elevated BNP -Supportive care New onset DM 2 -Recent polydipsia/polyuria and Hyperglycemia (299) in ED -Insulin given in ED -A1C 6.2 -Monitor glucose -Bedside glucose checks QID AC and BED -Novolog -ADA diet -Dietary Consult, Diabetes Education Elevated BNP, improving -h/o right-sided pedal edema per pt, takes 80mg Lasix QDaily at home--> hold for now -1+ left pedal edema today -BNP 6009-->4898-->4251 -ECHO this AM: 1. LVEF, by visual estimation is 60-65% 2. Mildly dilated left atrium 3. There is mild aortic valve sclerosis 4. Mild mitral valve regurgitation. 5. Mild to moderate tricuspid valve regurgitation -Lasix as needed, no scheduled dose due to low BP -Monitor Mild Anemia, stable -Most likely 2/2 CKD -Monitor -Replace with PRBCs as needed CKD, stage 3 -Acute Injury on Chronic, improving slowly -eGFR: 31-->36-->39-->43 -Cr: 1.6-->1.4-->1.3-->1.2 -BUN 30-->32-->37-->32 -Monitor Resolved: Afib with RVR -EKG showed yesterday AM -Clinically asymptomatic; no chest pain, palpitations -HR 140's to 160's per nursing -TSH levels in ED--> normal range; on levothyroxine for Hypothyroidism -Lopressor 50mg TID; PRN Q6H--> Q4H -Monitor -No episodes since yesterday AM Acute mental status change -Confused in ED -Most likely 2/2 hypoxia Acute UTI on Keflex, improved to resolved -h/o UTI diagnosed 10/06/17 in ED, was taking Keflex--> D/C'd -Currently on IV Rocephin here--D/C'd -Clinically asymptomatic -Repeat U/A improved: 1+ leuk esterase, Few bacteria, Trace blood Chronic: AFib Obesity HTN HLD Hypothyroidism--> On Levothyroxine JORGE ALBERTO Scoliosis Plan: Admit to Med Surg on telemetry Droplet Precautions Routine AM labs Electrolyte Replacement as needed Home meds DM education Dietary consult (ADA/Wgt loss) Consult PT/OT DVT/GI prophylaxis (YUN bravo/ Pepcid) Pt is DNR/DNI; PCP: Erika Mccracken Overall Sara did quite well while in our care. Her A1C was 6.2 and this can be monitored by her PCP. Her UTI appears to have resolved and her antibiotics were stopped. She will be discharged home today on a 3 day course of azithromycin, as well as PRN albuterol inhaler, tessalon perles, and guaifenesin. She is doing well and back to her baseline oxygen needs. Her kidney function and anemia have been stable. She was quite hypotensve while here and her lasix was held for a majority of her stay. She was instructed to hold her lasix if BP is less than 100/60. She also should be taking her BP TID and keep it in a journal. She should bring this to all medical appointments. - Patient Instructions Diet: Diabetic Diet Activity: As Tolerated Driving: Do Not Drive Notify Provider of: Fever, Increased Pain, Nausea and/or Vomiting (worsening shortness of breath ) - Discharge Plan Prescriptions/Med Rec: Albuterol Sulfate [Proair Hfa] 8.5 gm IH QID PRN #1 hfa.aer.ad PRN Reason: Shortness of breath/wheezing Azithromycin [Zithromax] 250 mg PO Q24H #3 tablet Benzonatate [Tessalon Perle] 100 mg PO QID PRN #20 capsule PRN Reason: cough guaiFENesin [Guaifenesin] 400 mg PO QID PRN #20 tablet PRN Reason: cough Home Medications: Home Meds Ammonium Lactate [Amlactin 12% Lotion] 500 gm TP BID PRN 05/29/14 [History] Aspirin [Halfprin] 81 mg PO DAILY 05/29/14 [History] B2/Vit A,C & E/Lut/Zeaxanth/Mn [Icaps] 2 tab PO QAM 05/29/14 [History] Budesonide/Formoterol [Symbicort 160-4.5 MCG] 2 puff INH BID 05/29/14 [History] Cholecalciferol (Vitamin D3) [Vitamin D3] 1,000 unit PO DAILY 05/29/14 [History] Cholestyramine/Aspartame [Questran Light Powder] 4 gm PO DAILY PRN 05/29/14 [ History] Furosemide [Lasix] 80 mg PO DAILY 05/29/14 [History] Levothyroxine 25 mcg PO ACBRK 05/29/14 [History] Magnesium Oxide 400 mg PO BEDTIME 05/29/14 [History] Metoprolol Tartrate 50 mg PO BID 05/29/14 [History] Potassium Chloride [Klor-Con M20] 10 meq PO DAILY 05/29/14 [History] Simvastatin [Zocor] 40 mg PO BEDTIME 05/29/14 [History] Albuterol [IJD: Albuterol] 2.5 mg INH Q8H PRN 10/06/17 [History] Calcium Carbonate [Calcium] 1,500 mg PO DAILY 10/06/17 [History] Naproxen 220 mg PO ASDIRECTED PRN 10/06/17 [History] Omeprazole 20 mg PO DAILY 10/08/17 [History] acetaZOLAMIDE [Acetazolamide] 250 mg PO MOWEFR 10/09/17 [History] Albuterol Sulfate [Proair Hfa] 8.5 gm IH QID PRN #1 hfa.aer.ad 10/11/17 [Rx] Azithromycin [Zithromax] 250 mg PO Q24H #3 tablet 10/11/17 [Rx] Benzonatate [Tessalon Perle] 100 mg PO QID PRN #20 capsule 10/11/17 [Rx] guaiFENesin [Guaifenesin] 400 mg PO QID PRN #20 tablet 10/11/17 [Rx] Patient Handouts: Chronic Obstructive Pulmonary Disease Exacerbation, Easy-to- Read, Atrial Fibrillation, Dery-ld-Arxj Forms: ED Department Discharge Referrals: Erika Mccracken MD [Primary Care Provider] - - Discharge Summary/Plan Comment DC Time >30 min.: Yes (45 mins) - General Info Date of Service: 10/11/17 Admission Dx/Problem (Free Text: Admission Diagnosis/Problem Admission Diagnosis/Problem Hypoxia Subjective Update: In to see Sara. She is just waking up from sleep. She has no concerns. Nursing has no concerns. She is back to her oxygen usage baseline. Labs are stable to improved. She will be discharged today. Functional Status: Reports: Pain Controlled, Tolerating Diet, Ambulating, Urinating. Denies: New Symptoms - Review of Systems General: Reports: Weakness (improving ). Denies: Fever, Fatigue, Malaise HEENT: Reports: No Symptoms Pulmonary: Reports: Shortness of Breath (at baseline ), Cough, Sputum. Denies: Wheezing Cardiovascular: Reports: Dyspnea on Exertion (at baseline ). Denies: Chest Pain , Edema, Lightheadedness Gastrointestinal: Reports: No Symptoms. Denies: Abdominal Pain, Constipation, Diarrhea, Nausea, Vomiting Genitourinary: Reports: No Symptoms Musculoskeletal: Reports: No Symptoms Skin: Reports: No Symptoms Neurological: Reports: No Symptoms Psychiatric: Reports: No Symptoms - Patient Data Vitals - Most Recent: Last Vital Signs Temp 97.9 F 10/11/17 03:03 Pulse 80 10/11/17 03:03 Resp 16 10/11/17 03:03 BP 106/57 L 10/11/17 03:03 Pulse Ox 97 10/11/17 05:25 Weight - Most Recent: 192 lb I&O - Last 24 hours: Intake & Output 10/10/17 10/10/17 10/11/17 14:59 22:59 06:59 Intake Total 300 1160 300 Output Total 700 200 Balance 300 460 100 Lab Results - Last 24 hrs: Laboratory Results - last 24 hr 10/10/17 10/10/17 10/10/17 Range/Units 06:02 06:02 06:02 WBC (3.98-10.04) K/mm3 RBC (3.98-5.22) M/mm3 Hgb (11.2-15.7) gm/L Hct (34.1-44.9) % MCV (79.4-94.8) fl MCH (25.6-32.2) pg MCHC (32.2-35.5) g/dl RDW Std Deviation (36.4-46.3) fL Plt Count (182-369) K/mm3 MPV (9.4-12.3) fl Neut % (Auto) (34.0-71.1) % Lymph % (Auto) (19.3-51.7) % Craig % (Auto) (4.7-12.5) % Eos % (Auto) (0.7-5.8) Baso % (Auto) (0.1-1.2) % Neut # (Auto) (1.56-6.13) K/mm3 Lymph # (Auto) (1.18-3.74) K/mm3 Craig # (Auto) (0.24-0.36) K/mm3 Eos # (Auto) (0.04-0.36) K/mm3 Baso # (Auto) (0.01-0.08) K/mm3 Manual Slide Review Sodium 146 H (136-145) mEq/L Potassium 4.0 (3.5-5.1) mEq/L Chloride 106 (98-107) mEq/L Carbon Dioxide 37 H (21-32) mEq/L Anion Gap 7.0 (5-15) BUN 37 H (7-18) mg/dL Creatinine 1.3 H (0.55-1.02) mg/dL Est Cr Clr Drug Dosing 24.74 mL/min Estimated GFR (MDRD) 39 (>60) mL/min BUN/Creatinine Ratio 28.5 H (14-18) Glucose 133 H (83-115) mg/dL POC Glucose (83-110) mg/dL Lactic Acid 0.9 (0.4-2.0) mmol/L Calcium 9.3 (8.5-10.1) mg/dL Magnesium 2.1 (1.8-2.4) mg/dl C-Reactive Protein (<1.0) mg/dL NT-Pro-B Natriuret Pep 4251 H (0-450) pg/mL 10/10/17 10/10/17 10/10/17 Range/Units 06:26 06:26 10:14 WBC 10.74 H (3.98-10.04) K/mm3 RBC 3.47 L (3.98-5.22) M/mm3 Hgb 10.4 L (11.2-15.7) gm/L Hct 34.8 (34.1-44.9) % MCV 100.3 H (79.4-94.8) fl MCH 30.0 (25.6-32.2) pg MCHC 29.9 L (32.2-35.5) g/dl RDW Std Deviation 53.2 H (36.4-46.3) fL Plt Count 325 (182-369) K/mm3 MPV 9.4 (9.4-12.3) fl Neut % (Auto) 72.2 H (34.0-71.1) % Lymph % (Auto) 14.2 L (19.3-51.7) % Craig % (Auto) 11.1 (4.7-12.5) % Eos % (Auto) 2.0 (0.7-5.8) Baso % (Auto) 0.1 (0.1-1.2) % Neut # (Auto) 7.77 H (1.56-6.13) K/mm3 Lymph # (Auto) 1.52 (1.18-3.74) K/mm3 Craig # (Auto) 1.19 H (0.24-0.36) K/mm3 Eos # (Auto) 0.21 (0.04-0.36) K/mm3 Baso # (Auto) 0.01 (0.01-0.08) K/mm3 Manual Slide Review Abnormal smear Sodium (136-145) mEq/L Potassium (3.5-5.1) mEq/L Chloride (98-107) mEq/L Carbon Dioxide (21-32) mEq/L Anion Gap (5-15) BUN (7-18) mg/dL Creatinine (0.55-1.02) mg/dL Est Cr Clr Drug Dosing mL/min Estimated GFR (MDRD) (>60) mL/min BUN/Creatinine Ratio (14-18) Glucose (83-115) mg/dL POC Glucose 191 H (83-110) mg/dL Lactic Acid (0.4-2.0) mmol/L Calcium (8.5-10.1) mg/dL Magnesium (1.8-2.4) mg/dl C-Reactive Protein 8.4 H* (<1.0) mg/dL NT-Pro-B Natriuret Pep (0-450) pg/mL 10/10/17 10/10/17 10/10/17 Range/Units 11:30 17:21 20:40 WBC (3.98-10.04) K/mm3 RBC (3.98-5.22) M/mm3 Hgb (11.2-15.7) gm/L Hct (34.1-44.9) % MCV (79.4-94.8) fl MCH (25.6-32.2) pg MCHC (32.2-35.5) g/dl RDW Std Deviation (36.4-46.3) fL Plt Count (182-369) K/mm3 MPV (9.4-12.3) fl Neut % (Auto) (34.0-71.1) % Lymph % (Auto) (19.3-51.7) % Craig % (Auto) (4.7-12.5) % Eos % (Auto) (0.7-5.8) Baso % (Auto) (0.1-1.2) % Neut # (Auto) (1.56-6.13) K/mm3 Lymph # (Auto) (1.18-3.74) K/mm3 Craig # (Auto) (0.24-0.36) K/mm3 Eos # (Auto) (0.04-0.36) K/mm3 Baso # (Auto) (0.01-0.08) K/mm3 Manual Slide Review Sodium (136-145) mEq/L Potassium (3.5-5.1) mEq/L Chloride (98-107) mEq/L Carbon Dioxide (21-32) mEq/L Anion Gap (5-15) BUN (7-18) mg/dL Creatinine (0.55-1.02) mg/dL Est Cr Clr Drug Dosing mL/min Estimated GFR (MDRD) (>60) mL/min BUN/Creatinine Ratio (14-18) Glucose (83-115) mg/dL POC Glucose 166 H 89 168 H (83-110) mg/dL Lactic Acid (0.4-2.0) mmol/L Calcium (8.5-10.1) mg/dL Magnesium (1.8-2.4) mg/dl C-Reactive Protein (<1.0) mg/dL NT-Pro-B Natriuret Pep (0-450) pg/mL EDGAR Results - Last 24 hrs: Microbiology 10/07/17 23:30 Aerobic Blood Culture - Preliminary Blood - Venous NO GROWTH AFTER 3 DAYS Anaerobic Blood Culture - Preliminary NO GROWTH AFTER 3 DAYS 10/07/17 23:40 Aerobic Blood Culture - Preliminary Blood - Venous - Lab Draw NO GROWTH AFTER 3 DAYS Anaerobic Blood Culture - Preliminary NO GROWTH AFTER 3 DAYS Med Orders - Current: Current Medications Acetaminophen (Tylenol) 650 mg PO Q6H PRN PRN Reason: Pain/Fever Last Admin: 10/11/17 03:12 Dose: 650 mg Acetazolamide (Diamox) 250 mg PO MOWEFR [facility] Last Admin: 10/09/17 21:27 Dose: 250 mg Albuterol (Proventil Neb Soln) 2.5 mg NEB Q4HRRT PRN PRN Reason: Shortness of Breath Last Admin: 10/09/17 03:10 Dose: 2.5 mg Albuterol/Ipratropium (Duoneb 3.0-0.5 Mg/3 Ml) 3 ml NEB BIDRT [facility] Last Admin: 10/11/17 05:25 Dose: 3 ml Aspirin (Halfprin) 81 mg PO DAILY [facility] Last Admin: 10/10/17 09:59 Dose: 81 mg Azithromycin (Zithromax) 250 mg PO Q24H [facility] Last Admin: 10/10/17 18:08 Dose: 250 mg Benzonatate (Tessalon Perles) 100 mg PO QID PRN PRN Reason: Cough Last Admin: 10/10/17 17:30 Dose: 100 mg Calcium Carbonate/Glycine (Tums) 1,500 mg PO DAILY [facility] Last Admin: 10/10/17 09:58 Dose: 1,500 mg Cholecalciferol (Vitamin D3) 1,000 units PO DAILY [facility] Last Admin: 10/10/17 09:59 Dose: 1,000 units Cholestyramine Resin (Prevalite Packet) 4 gm PO DAILY PRN PRN Reason: DIARRHEA Famotidine (Pepcid) 20 mg PO DAILY [facility] Last Admin: 10/10/17 09:59 Dose: 20 mg Guaifenesin (Mucinex) 600 mg PO TID PRN PRN Reason: Cough Last Admin: 10/10/17 20:21 Dose: 600 mg Hydralazine HCl (Apresoline) 20 mg IVPUSH Q6H PRN PRN Reason: Hypertension Insulin Aspart (Novolog) 0 unit SUBCUT QIDACANDBED [facility]; Protocol Last Admin: 10/10/17 22:49 Dose: 1 unit Levothyroxine Sodium (Levothyroxine) 25 mcg PO ACBRK [facility] Last Admin: 10/11/17 05:28 Dose: 25 mcg Magnesium Oxide (Magnesium Oxide) 400 mg PO BEDTIME [facility] Last Admin: 10/10/17 20:21 Dose: 400 mg Metoprolol Tartrate (Lopressor) 50 mg PO TIDPC [facility] Last Admin: 10/10/17 18:07 Dose: 50 mg Metoprolol Tartrate (Lopressor) 5 mg IVPUSH Q4H PRN PRN Reason: Tachycardia Last Admin: 10/09/17 11:08 Dose: 5 mg Mometasone Furoate/Formoterol Fumar (Dulera 200-5 Mcg) 0 puff IH BIDRT [facility] Last Admin: 10/11/17 05:24 Dose: 2 puff Ondansetron HCl (Zofran) 4 mg IVPUSH Q8H PRN PRN Reason: Nausea/Vomiting Potassium Chloride (Klor-Con 10) 10 meq PO DAILY [facility] Last Admin: 10/10/17 09:59 Dose: 10 meq Potassium Chloride (Pharmacy To Dose - Potassium Replacement) 0 dose .XX ASDIRECTED PRN PRN Reason: RX TO WATCH K LEVELS Simvastatin (Zocor) 40 mg PO BEDTIME [facility] Last Admin: 10/10/17 20:21 Dose: 40 mg Sodium Chloride (Saline Flush) 10 ml FLUSH ASDIRECTED PRN PRN Reason: Keep Vein Open Last Admin: 10/07/17 23:37 Dose: 10 ml Discontinued Medications Albuterol/Ipratropium (Duoneb 3.0-0.5 Mg/3 Ml) 3 ml NEB ONETIME ONE Stop: 10/07/17 23:58 Last Admin: 10/08/17 00:08 Dose: 3 ml Albuterol/Ipratropium (Duoneb 3.0-0.5 Mg/3 Ml) 3 ml NEB QIDRT [facility] Last Admin: 10/09/17 17:24 Dose: 3 ml Doxycycline Hyclate (Vibramycin) 100 mg PO ONETIME ONE Stop: 10/08/17 00:07 Last Admin: 10/08/17 00:32 Dose: 100 mg Furosemide (Lasix) 40 mg IVPUSH NOW ONE Stop: 10/08/17 14:55 Last Admin: 10/08/17 15:28 Dose: 40 mg Furosemide (Lasix) 20 mg IVPUSH ONETIME ONE Stop: 10/09/17 09:01 Last Admin: 10/09/17 08:53 Dose: 20 mg Sodium Chloride (Normal Saline) 1,000 mls @ 75 mls/hr IV ASDIRECTED [facility] Last Admin: 10/08/17 04:44 Dose: 75 mls/hr Doxycycline Hyclate 100 mg/ (Sodium Chloride) 100 mls @ 100 mls/hr IV Q12HR [facility] Last Admin: 10/08/17 11:44 Dose: 100 mls/hr Ceftriaxone Sodium 2 gm/ (Sodium Chloride) 100 mls @ 100 mls/hr IV Q24H [facility] Last Admin: 10/08/17 15:28 Dose: 100 mls/hr Azithromycin 500 mg/ Sodium (Chloride) 250 mls @ 250 mls/hr IV Q24H [facility] Last Admin: 10/09/17 18:10 Dose: 250 mls/hr Ceftriaxone Sodium 2 gm/ (Dextrose/Water) 100 mls @ 100 mls/hr IV Q24H [facility] Stop: 10/09/17 15:59 Last Admin: 10/09/17 15:14 Dose: 100 mls/hr Insulin Human Regular (Humulin R) 6 unit SUBCUT BIDAC [facility] Insulin Human Regular (Humulin R) 6 unit SUBCUT NOW STA Stop: 10/08/17 00:53 Last Admin: 10/08/17 00:57 Dose: 6 units Methylprednisolone Sodium Succinate (Solu-Medrol) 125 mg IVPUSH ONETIME ONE Stop: 10/08/17 00:07 Last Admin: 10/08/17 00:33 Dose: 125 mg Metoprolol Tartrate (Lopressor) 50 mg PO BID [facility] Last Admin: 10/08/17 21:04 Dose: 50 mg Metoprolol Tartrate (Lopressor) 5 mg IVPUSH Q6H PRN PRN Reason: HR>120 Last Admin: 10/09/17 07:21 Dose: 5 mg Metoprolol Tartrate (Lopressor) 5 mg IVPUSH ONETIME ONE Stop: 10/08/17 09:51 Last Admin: 10/08/17 09:54 Dose: 5 mg Metoprolol Tartrate (Lopressor) Confirm Administered Dose 5 mg .ROUTE .STK-MED ONE Stop: 10/08/17 09:53 Last Admin: 10/08/17 10:16 Dose: Not Given Potassium Chloride (Klor-Con M20) 40 meq PO Q4H [facility] Stop: 10/09/17 19:01 Last Admin: 10/09/17 18:09 Dose: 40 meq - Exam Quality Assessment: Reports: Supplemental Oxygen (chronic - at baseline now), DVT Prophylaxis General: Reports: Alert, Oriented, Cooperative, No Acute Distress HEENT: Reports: Pupils Equal, Pupils Reactive, EOMI, Mucous Membr. Moist/Caraway Neck: Reports: Supple, Trachea Midline, No JVD Lungs: Reports: Normal Respiratory Effort, Decreased Breath Sounds, Wheezing ( mild ) Cardiovascular: Reports: Regular Rate, Regular Rhythm GI/Abdominal Exam: Normal Bowel Sounds, Soft, Non-Tender (Female) Exam: Deferred Rectal (Female) Exam: Deferred Back Exam: Reports: Normal Inspection, Full Range of Motion Extremities: Normal Inspection, Normal Range of Motion, Non-Tender, No Pedal Edema, Normal Capillary Refill Skin: Reports: Warm, Dry, Intact Neurological: Reports: No New Focal Deficit Psy/Mental Status: Reports: Alert, Normal Affect, Normal Mood
[2017-10-11] MEDS: Insulin Aspart 100 Units/ML 3 ML Pen SUBCUT SCH ×2 (07:49→12:33)
[2017-10-11] MEDS: Famotidine 20 MG Tab PO SCH (08:46)
[2017-10-11] MEDS: Cholecalciferol (Vitamin D3) 1,000 Unit Tab PO SCH (08:46)
[2017-10-11] MEDS: Calcium Carbonate 500 MG Tab.Chew PO SCH (08:46)
[2017-10-11] MEDS: Potassium Chloride 10 MEQ Tab.ER PO SCH (08:47)
[2017-10-11] MEDS: Aspirin 81 MG Tab.EC PO SCH (08:47)
[2017-10-11] MEDS: Metoprolol Tartrate 50 MG Tab PO SCH ×2 (08:47→12:35)
[2017-10-11 12:41] VITALS: BP 101/49
== END 2017-10-11 13:40 | disposition home or self-care (01) | DRG 190 ==
LOC: JD.ED 22:52 → JD.MS 10-08 01:09
PROVIDERS: ADMIT Internal Medicine Cardiovascular Disease; ATTEND Internal Medicine Cardiovascular Disease
DX: J44.0 Chronic obstructive pulmonary disease with (acute) lower respiratory infection (principal); J96.01 Acute respiratory failure with hypoxia; J18.9 Pneumonia, unspecified organism; J44.9 Chronic obstructive pulmonary disease, unspecified; N17.9 Acute kidney failure, unspecified; E87.2 Acidosis; J98.4 Other disorders of lung; I10 Essential (primary) hypertension; R73.9 Hyperglycemia, unspecified; E78.00 Pure hypercholesterolemia, unspecified; R47.81 Slurred speech; G47.30 Sleep apnea, unspecified; N30.00 Acute cystitis without hematuria; I12.0 Hypertensive chronic kidney disease with stage 5 chronic kidney disease or end stage renal disease; Z68.30 Body mass index [BMI] 30.0-30.9, adult; R42 Dizziness and giddiness; R51 Headache; J44.1 Chronic obstructive pulmonary disease with (acute) exacerbation; N18.3 Chronic kidney disease, stage 3 (moderate); Z66 Do not resuscitate; D63.1 Anemia in chronic kidney disease; E11.22 Type 2 diabetes mellitus with diabetic chronic kidney disease; I48.2 Chronic atrial fibrillation; E03.9 Hypothyroidism, unspecified; E78.5 Hyperlipidemia, unspecified; E11.65 Type 2 diabetes mellitus with hyperglycemia; E87.6 Hypokalemia; G47.33 Obstructive sleep apnea (adult) (pediatric); E66.9 Obesity, unspecified; Z68.36 Body mass index [BMI] 36.0-36.9, adult; R79.89 Other specified abnormal findings of blood chemistry; I95.9 Hypotension, unspecified; M41.9 Scoliosis, unspecified; L98.8 Other specified disorders of the skin and subcutaneous tissue; Z99.81 Dependence on supplemental oxygen; Z88.8 Allergy status to other drugs, medicaments and biological substances; Z79.899 Other long term (current) drug therapy; Z79.82 Long term (current) use of aspirin; Z87.891 Personal history of nicotine dependence
CPT/HCPCS: 36600; 70450; 71045; 82803; 87040 ×2; 87804 ×2; 93005; 94640; 94660; 96372; 96374; 99285; A9270; J1815; J2930; J7050; 36415; 71046; 71046-26; 80048; 80053; 80061; 81001; 82140; 82962; 83036; 83605; 83690; 83735; 83880; 84439; 84443; 84484; 85025; 85610; 86140; 86738; 87486; 87581; 87633; 87798; 87899; 93306; 94664; 94667; 94761; 97110-GO; 97110-GP; 97116-GP; 97162-GP; 97165-GO; 97530-GO; 97530-GP; G0480; J0456; J0696; J1940; J3490; J7030; J7040; J7060

== ENCOUNTER 2019-05-30 10:31 | Inpatient (IN) | payer MEDICARE, BC ==
[2019-05-30] MEDS ORDERED: Sodium Chloride 0.9% 1,000 ML IV ONE (11:09)
--- NOTE | 2019-05-30 11:29 | EDM.PDOC ---
ED HPI GENERAL MEDICAL PROBLEM - General Chief Complaint: Respiratory Problem Stated Complaint: [facility] Time Seen by Provider: 05/30/19 10:59 Source of Information: Reports: Patient, Family (), RN Notes Reviewed History Limitations: Reports: No Limitations - History of Present Illness INITIAL COMMENTS - FREE TEXT/NARRATIVE: Patient is an 83-year-old female who presents to the ED for evaluation of increased shortness of breath and a headache. The patient's notes that over the last 3 or 4 days, she has had a cough, and increased work of breathing. He does note that she is on 3 L oxygen normally, but he has had to increase her oxygen to 4 L, as her home O2 sats were 80% on 3 L. At time of triage, it was 92% on 4 L. The patient reports feeling generalized weakness, and when I ask her what hurts, she points to her head, and rubs her forehead. She notes this pain is a 10 out of 10, and states that this is worst headache of her life. Of note the patient is on a blood thinner for history of A. fib. She denies any recent falls or trauma to the head. The notes that the patient is a code 3, and would not want extreme measures done. Patient's regular doctor is Erika Mccracken. denies any sort of fevers or chills.the patient has, however she feels warm to the touch on examination. Blood pressure is on the low side of normal as well. Treatments DIRECTOR PROCESS: Reports: IV/IO Headache Pain Score (Numeric/FACES): 10 - Related Data Allergies Allergy/AdvReac Type Severity Reaction Status Date / Time atorvastatin calcium AdvReac Muscle Verified 05/30/19 10:42 [From Lipitor] Aches Home Meds: Home Meds Aspirin [Halfprin] 81 mg PO DAILY 05/29/14 [History] B2/Vits A,C,E/Lut/Zeaxanth/Min [Icaps] 2 tab PO QAM 05/29/14 [History] Cholecalciferol (Vitamin D3) [Vitamin D3] 1,000 unit PO BEDTIME 05/29/14 [ History] Furosemide [Lasix] 80 mg PO DAILY 05/29/14 [History] Levothyroxine 25 mcg PO ACBRK 05/29/14 [History] Magnesium Oxide 400 mg PO BEDTIME 05/29/14 [History] Potassium Chloride [Klor-Con M20] 10 meq PO DAILY 05/29/14 [History] Simvastatin [Zocor] 40 mg PO BEDTIME 05/29/14 [History] Omeprazole 20 mg PO DAILY 10/08/17 [History] acetaZOLAMIDE [Acetazolamide] 250 mg PO MOWEFR 10/09/17 [History] Metoprolol Tartrate 50 mg PO BID 10/28/17 [History] Alendronate Sodium [Fosamax] 70 mg PO FR 05/30/19 [History] Warfarin [Coumadin] 2.5 mg PO DAILY 05/30/19 [History] Past Medical History HEENT History: Reports: Impaired Vision, Other (See Below) Other HEENT History: pt wears glasses, reports to have upper denture and lower partial Cardiovascular History: Reports: High Cholesterol, Hypertension Respiratory History: Reports: COPD, Sleep Apnea, Other (See Below) Other Respiratory History: wear oxygen at home & CPAP 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: Musculoskeletal History: Reports: Back Pain, Chronic Endocrine/Metabolic History: Reports: Hypothyroidism, Obesity/BMI 30+ - Past Surgical History GI Surgical History: Reports: Cholecystectomy Female Surgical History: Reports: Hysterectomy, Oophorectomy Social & Family History - Family History Family Medical History: Noncontributory - Caffeine Use Caffeine Use: Reports: None - Living Situation & Occupation Living situation: Reports: , with Spouse Occupation: Retired ED ROS GENERAL - Review of Systems Review Of Systems: See Below Constitutional: Reports: Malaise (generalized), Weakness (generalized), Decreased Appetite. Denies: Fever, Chills Respiratory: Reports: Shortness of Breath (increased work of breathing), Cough. Denies: Wheezing Cardiovascular: Denies: Chest Pain GI/Abdominal: Denies: Abdominal Pain, Constipation, Diarrhea, Nausea, Vomiting Neurological: Reports: Headache, Weakness (generalized, not unilateral). Denies : Confusion, Pre-Existing Deficit, Seizure, Syncope, Trouble Speaking, Change in Speech ED EXAM, GENERAL - Physical Exam Exam: See Below Exam Limited By: No Limitations General Appearance: Alert, WD/WN, Mild Distress (has heavy breathing pattern, respirations are labored. speaks in broken sentences) Eye Exam: Bilateral Eye: EOMI, Normal Inspection, PERRL Nose: Normal Inspection Throat/Mouth: Normal Inspection, Normal Lips, Normal Teeth, Normal Gums, Normal Oropharynx, Normal Voice, No Airway Compromise Head: Atraumatic, Normocephalic Neck: Normal Inspection Respiratory/Chest: Lungs Clear, Normal Breath Sounds, No Accessory Muscle Use, Chest Non-Tender, Respiratory Distress (mild), Decreased Breath Sounds (diffuse bilaterally). No: Rhonchi Cardiovascular: Normal Peripheral Pulses, Regular Rate, Rhythm, No Edema, No Murmur Peripheral Pulses: 3+: Radial (L), Radial (R) GI/Abdominal: Normal Bowel Sounds, Soft, Non-Tender, No Distention, No Mass Extremities: Normal Inspection, Normal Capillary Refill Neurological: Alert, Oriented, Normal Cognition, No Motor/Sensory Deficits Psychiatric: Normal Affect, Normal Mood Skin Exam: Warm, Dry, Intact, Normal Color, No Rash EKG INTERPRETATION EKG Date: 05/30/19 Time: 11:15 Rhythm: Other (sinus tach) Rate (Beats/Min): 123 [place]: Normal P-Wave: Present QRS: Normal ST-T: Normal QT: Prolonged (moderately prolonged) EKG Interpretation Comments: Reviewed with Dr. Deluca. Early R-wave transition, consider RVH/septal hypertrophy, T-wave inversion V3 -V6, cannot rule out ischemia. T-wave flattening in leads I and aVL, T-wave inversion in II, III and aVF. Course - Vital Signs Last Recorded V/S: Last Vital Signs Temp 98.4 F 05/30/19 19:52 Pulse 81 05/30/19 19:52 Resp 24 H 05/30/19 19:52 BP 95/51 L 05/30/19 19:52 Pulse Ox 98 05/30/19 19:52 - Orders/Labs/Meds Orders: Active Orders 24 hr Category Date Time Status Admission Status [Patient Status] [ADT] Routine ADT 05/30/19 14:44 Active BIPAP [RT BiPAP/CPAP] [RC] ASDIRECTED Care 05/30/19 11:29 Active EKG Documentation Completion [RC] STAT Care 05/30/19 11:08 Active Oxygen Therapy, ED [RC] ASDIRECTED Care 05/30/19 11:10 Active CULTURE BLOOD [BC] Stat Lab 05/30/19 11:52 Received CULTURE BLOOD [BC] Stat Lab 05/30/19 12:06 Received PROCALCITONIN [REF] Stat Lab 05/30/19 13:43 Received Blood Culture x2 Reflex Set [OM.PC] Stat Oth 05/30/19 11:08 Ordered Medication Orders Acetaminophen (Tylenol) 325 mg PO Q4H PRN PRN Reason: Pain (Mild 1-3)/fever Last Admin: 05/30/19 19:00 Dose: 325 mg Aspirin (Halfprin) 81 mg PO DAILY [facility] Levothyroxine Sodium (Levothyroxine) 25 mcg PO ACBRK [facility] Metoprolol Tartrate (Lopressor) 50 mg PO BID [facility] Ondansetron HCl (Zofran Odt) 4 mg PO Q6H PRN PRN Reason: nausea, able to take PO Ondansetron HCl (Zofran) 4 mg IV Q6H PRN PRN Reason: Nausea/Vomiting Oseltamivir Phosphate (Tamiflu) 30 mg PO BID [facility] Last Admin: 05/30/19 20:14 Dose: 30 mg Labs: Laboratory Tests 05/30/19 05/30/19 05/30/19 Range/Units 11:11 11:52 12:06 WBC 10.81 H (3.98-10.04) K/mm3 RBC 3.94 L (3.98-5.22) M/mm3 Hgb 10.7 L (11.2-15.7) gm/dl Hct 37.5 (34.1-44.9) % MCV 95.2 H (79.4-94.8) fl MCH 27.2 (25.6-32.2) pg MCHC 28.5 L (32.2-35.5) g/dl RDW Std Deviation 53.9 H (36.4-46.3) fL Plt Count 230 (182-369) K/mm3 MPV 10.2 (9.4-12.3) fl Neutrophils % (Manual) 84 H (40-60) % Band Neutrophils % 0 (0-10) % Lymphocytes % (Manual) 7 L (20-40) % Atypical Lymphs % 0 % Monocytes % (Manual) 8 (2-10) % Eosinophils % (Manual) 1 (0.7-5.8) % Basophils % (Manual) 0 L (0.1-1.2) Platelet Estimate Adequate RBC Morph Comment Normal PT (9.7-12.0) SECONDS INR APTT (22-31) SECONDS Puncture Site Lt radial ABG pH 7.23 L (7.35-7.45) ABG pCO2 69.8 H (35.0-45.0) mmHg ABG pO2 70.0 L (80.0-100.0) mmHg ABG HCO3 28.2 H (22.0-26.0) meq/L ABG O2 Saturation 91.2 L (96.0-97.0) % ABG Base Excess -0.2 (-2-2.0) Nikolai Test Positive O2 Delivery Device Nasal cannula Oxygen Flow Rate 4.0 FiO2 0.00 L (21.00-100.00) % PEEP cmH20 Pressure Support cmH2O Sodium (136-145) mEq/L Potassium (3.5-5.1) mEq/L Chloride (98-107) mEq/L Carbon Dioxide (21-32) mEq/L Anion Gap (5-15) BUN (7-18) mg/dL Creatinine (0.55-1.02) mg/dL Est Cr Clr Drug Dosing Estimated GFR (MDRD) (>60) mL/min BUN/Creatinine Ratio (14-18) Glucose (83-115) mg/dL Lactic Acid 0.8 (0.4-2.0) mmol/L Calcium (8.5-10.1) mg/dL Magnesium (1.8-2.4) mg/dl Total Bilirubin (0.2-1.0) mg/dL AST (15-37) U/L ALT (14-59) U/L Alkaline Phosphatase (46-116) U/L Troponin I (0.00-0.056) ng/mL NT-Pro-B Natriuret Pep (0-450) pg/mL Total Protein (6.4-8.2) g/dl Albumin (3.4-5.0) g/dl Globulin gm/dL Albumin/Globulin Ratio (1-2) 05/30/19 05/30/19 05/30/19 Range/Units 12:06 12:06 12:06 WBC (3.98-10.04) K/mm3 RBC (3.98-5.22) M/mm3 Hgb (11.2-15.7) gm/dl Hct (34.1-44.9) % MCV (79.4-94.8) fl MCH (25.6-32.2) pg MCHC (32.2-35.5) g/dl RDW Std Deviation (36.4-46.3) fL Plt Count (182-369) K/mm3 MPV (9.4-12.3) fl Neutrophils % (Manual) (40-60) % Band Neutrophils % (0-10) % Lymphocytes % (Manual) (20-40) % Atypical Lymphs % % Monocytes % (Manual) (2-10) % Eosinophils % (Manual) (0.7-5.8) % Basophils % (Manual) (0.1-1.2) Platelet Estimate RBC Morph Comment PT > 90.0 H* D (9.7-12.0) SECONDS INR TNP APTT 66 H (22-31) SECONDS Puncture Site ABG pH (7.35-7.45) ABG pCO2 (35.0-45.0) mmHg ABG pO2 (80.0-100.0) mmHg ABG HCO3 (22.0-26.0) meq/L ABG O2 Saturation (96.0-97.0) % ABG Base Excess (-2-2.0) Nikolai Test O2 Delivery Device Oxygen Flow Rate FiO2 (21.00-100.00) % PEEP cmH20 Pressure Support cmH2O Sodium 143 (136-145) mEq/L Potassium 3.8 (3.5-5.1) mEq/L Chloride 107 (98-107) mEq/L Carbon Dioxide 28 (21-32) mEq/L Anion Gap 11.8 (5-15) BUN 20 H (7-18) mg/dL Creatinine 1.0 (0.55-1.02) mg/dL Est Cr Clr Drug Dosing TNP Estimated GFR (MDRD) 53 (>60) mL/min BUN/Creatinine Ratio 20.0 H (14-18) Glucose 129 H (83-115) mg/dL Lactic Acid (0.4-2.0) mmol/L Calcium 8.4 L D (8.5-10.1) mg/dL Magnesium 2.2 (1.8-2.4) mg/dl Total Bilirubin 0.5 (0.2-1.0) mg/dL AST 11 L (15-37) U/L ALT 16 (14-59) U/L Alkaline Phosphatase 83 (46-116) U/L Troponin I < 0.017 (0.00-0.056) ng/mL NT-Pro-B Natriuret Pep 5811 H (0-450) pg/mL Total Protein 6.5 (6.4-8.2) g/dl Albumin 2.7 L (3.4-5.0) g/dl Globulin 3.8 gm/dL Albumin/Globulin Ratio 0.7 L (1-2) 05/30/19 Range/Units 12:30 WBC (3.98-10.04) K/mm3 RBC (3.98-5.22) M/mm3 Hgb (11.2-15.7) gm/dl Hct (34.1-44.9) % MCV (79.4-94.8) fl MCH (25.6-32.2) pg MCHC (32.2-35.5) g/dl RDW Std Deviation (36.4-46.3) fL Plt Count (182-369) K/mm3 MPV (9.4-12.3) fl Neutrophils % (Manual) (40-60) % Band Neutrophils % (0-10) % Lymphocytes % (Manual) (20-40) % Atypical Lymphs % % Monocytes % (Manual) (2-10) % Eosinophils % (Manual) (0.7-5.8) % Basophils % (Manual) (0.1-1.2) Platelet Estimate RBC Morph Comment PT (9.7-12.0) SECONDS INR APTT (22-31) SECONDS Puncture Site Lt radial ABG pH 7.24 L (7.35-7.45) ABG pCO2 63.6 H (35.0-45.0) mmHg ABG pO2 68.0 L (80.0-100.0) mmHg ABG HCO3 26.5 H (22.0-26.0) meq/L ABG O2 Saturation 90.6 L (96.0-97.0) % ABG Base Excess -1.2 (-2-2.0) Nikolai Test Positive O2 Delivery Device Bipap Oxygen Flow Rate FiO2 0.00 L (21.00-100.00) % PEEP 6.0 cmH20 Pressure Support 12.0 cmH2O Sodium (136-145) mEq/L Potassium (3.5-5.1) mEq/L Chloride (98-107) mEq/L Carbon Dioxide (21-32) mEq/L Anion Gap (5-15) BUN (7-18) mg/dL Creatinine (0.55-1.02) mg/dL Est Cr Clr Drug Dosing Estimated GFR (MDRD) (>60) mL/min BUN/Creatinine Ratio (14-18) Glucose (83-115) mg/dL Lactic Acid (0.4-2.0) mmol/L Calcium (8.5-10.1) mg/dL Magnesium (1.8-2.4) mg/dl Total Bilirubin (0.2-1.0) mg/dL AST (15-37) U/L ALT (14-59) U/L Alkaline Phosphatase (46-116) U/L Troponin I (0.00-0.056) ng/mL NT-Pro-B Natriuret Pep (0-450) pg/mL Total Protein (6.4-8.2) g/dl Albumin (3.4-5.0) g/dl Globulin gm/dL Albumin/Globulin Ratio (1-2) Meds: Medications Generic Name Dose Route Start Last Admin Trade Name Freq PRN Reason Stop Dose Admin Acetaminophen 325 mg 05/30/19 17:47 05/30/19 19:00 Tylenol PO 325 mg Q4H PRN Administration Pain (Mild 1-3)/fever Aspirin 81 mg 05/31/19 09:00 Halfprin PO DAILY [facility] Levothyroxine Sodium 25 mcg 05/31/19 06:00 Levothyroxine PO ACBRK [facility] Metoprolol Tartrate 50 mg 05/30/19 21:00 Lopressor PO BID [facility] Ondansetron HCl 4 mg 05/30/19 17:47 Zofran Odt PO Q6H PRN nausea, able to take PO Ondansetron HCl 4 mg 05/30/19 17:47 Zofran IV Q6H PRN Nausea/Vomiting Oseltamivir Phosphate 30 mg 05/30/19 21:00 05/30/19 20:14 Tamiflu PO 30 mg BID JAZZY Administration Discontinued Medications Generic Name Dose Route Start Last Admin Trade Name Freq PRN Reason Stop Dose Admin Furosemide 60 mg 05/30/19 14:20 05/30/19 15:10 Lasix IVPUSH 05/30/19 14:21 60 mg NOW ONE Administration Sodium Chloride 1,000 mls @ 999 mls/hr 05/30/19 11:09 05/30/19 11:35 Normal Saline IV 05/30/19 12:09 999 mls/hr ONETIME ONE Administration - Re-Assessments/Exams Free Text/Narrative Re-Assessment/Exam: 05/30/19 11:35 Patient presents to the ED for evaluation of increased shortness of breath and a headache. I have ordered EKG, chest x-ray, head CT to evaluate for the headache, CBC, CMP, blood cultures 2, influenza, magnesium, BNP, PT INR, troponin, UA, ABG and IV fluids. Patient's blood gas was resulted, and shows a pH of 7.23, and an elevated CO2 of 69.8. The patient appears to be suffering from a respiratory acidosis at this time. I did order BiPAP to a placed after the results of the blood gas as well. Again when asked if the patient would want extraordinary measures, the states that she would not like that. However due to the results of the blood gas, I do believe BiPAP will help relieve some of the work of breathing of the patient. She will likely need hospital admission. 05/30/19 12:12 BiPAP was placed at a level of 12/6, did order blood gas to be reobtained at around 12:30 as this will be about 1 hour afterwards been placed. Chest x-ray was done, and demonstrates mild possible pulmonary vascular congestion, and other stable findings which would include scoliosis and osteopenia. Head CT shows slight mucosal thickening within the ethmoid sinuses bleed to be incidental, and slight senescent change which is stable otherwise no acute intracranial abnormality was appreciated. Patient has tested positive for influenza B as well. Labs however are still pending. 05/30/19 12:57 Labs have started to come back, and this does demonstrate a abnormal coag panel , the PT is above 90, I did discuss with the Dr. Deluca, he states just to hold the Coumadin for a few days to help normalize this. I also discussed the case tentatively with Dr. Geronimo, our hospitalist, and she will be in to evaluate the patient for possible hospital admission. She wanted a pro calcitonin ordered. 05/30/19 13:12 Repeat blood gas demonstrates a pH is 7.24, and a CO2 of 63.6, we will have RT titrate the BiPAP, and repeat ABGs after titration has been finished. I did reevaluate the patient at bedside, she states she is feeling much better with the BiPAP on. Departure - Departure Time of Disposition: 14:00 Disposition: Admitted As Inpatient 65 Condition: Fair Clinical Impression: Pneumonia and influenza - Discharge Information *PRESCRIPTION DRUG MONITORING PROGRAM REVIEWED*: No *COPY OF PRESCRIPTION DRUG MONITORING REPORT IN PATIENT BA: No Sepsis Event Note - Evaluation Sepsis Screening Result: No Definite Risk - Focused Exam Vital Signs: Vital Signs Temp Pulse Resp BP Pulse Ox Pulse Ox Pulse Ox 05/30/19 11:42 93 L 05/30/19 11:21 94 L 05/30/19 10:38 98.5 F 140 H 30 H 117/59 L 91 L Date Exam was Performed: 05/30/19 Time Exam was Performed: 21:04 - My Orders Last 24 Hours: My Active Orders 05/30/19 11:08 EKG Documentation Completion [RC] STAT Blood Culture x2 Reflex Set [OM.PC] Stat 05/30/19 11:10 Oxygen Therapy, ED [RC] ASDIRECTED 05/30/19 11:29 BIPAP [RT BiPAP/CPAP] [RC] ASDIRECTED 05/30/19 11:52 CULTURE BLOOD [BC] Stat 05/30/19 12:06 CULTURE BLOOD [BC] Stat 05/30/19 13:43 PROCALCITONIN [REF] Stat - Assessment/Plan Last 24 Hours: My Active Orders 05/30/19 11:08 EKG Documentation Completion [RC] STAT Blood Culture x2 Reflex Set [OM.PC] Stat 05/30/19 11:10 Oxygen Therapy, ED [RC] ASDIRECTED 05/30/19 11:29 BIPAP [RT BiPAP/CPAP] [RC] ASDIRECTED 05/30/19 11:52 CULTURE BLOOD [BC] Stat 05/30/19 12:06 CULTURE BLOOD [BC] Stat 05/30/19 13:43 PROCALCITONIN [REF] Stat
--- NOTE | 2019-05-30 11:52 | CT ---
Head CT Technique: Multiple axial sections through the brain were obtained. Intravenous contrast was not utilized. Comparison: Prior head CT exam of 10/07/17. Findings: Ventricles along with basal cisterns and sulci over the convexities appear within normal limits for the patient's age. 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 No other abnormal parenchymal densities are seen. No evidence of intracranial hemorrhage. No midline shift or mass effect is seen. Bone window settings were reviewed which show no acute calvarial abnormality. Visualized mastoid sinuses are clear. Visualized paranasal sinuses shows minimal mucosal thickening within the ethmoid sinuses. Impression: 1. Slight mucosal thickening within the ethmoid sinuses believed to be incidental. 2. Slight senescent change which is stable. 3. No acute intracranial abnormality is appreciated. Diagnostic code #2 This report was dictated in [place] Standard Time
--- NOTE | 2019-05-30 11:56 | CR ---
Chest: Portable view of the chest was obtained. Comparison: Prior chest x-ray of 11/01/17. Pulmonary vessels may be slightly congested. Heart is mildly enlarged. Tortuous thoracic aorta is seen. Scoliosis is noted within the spine. Bony structures are osteopenic. Impression: 1. Possible mild pulmonary vascular congestion. 2. Other findings as noted above which are stable. Diagnostic code #3 This report was dictated in [place] Standard Time
[2019-05-30] MEDS ORDERED: Furosemide 40 MG/4 ML VIAL IVPUSH ONE (14:20)
[2019-05-30] MEDS ORDERED: Ondansetron 4 MG Tab.DIS PO PRN (17:47)
[2019-05-30] MEDS ORDERED: Ondansetron 4 MG/2 ML SDV IV PRN (17:47)
--- NOTE | 2019-05-30 17:53 | PCM.HP.2 ---
H&P History of Present Illness - General Date of Service: 05/30/19 Admit Problem/Dx: Admission Diagnosis/Problem Admission Diagnosis/Problem Pneumonia and influenza - History of Present Illness Initial Comments - Free Text/Narative: Patient is an 83-year-old female who presents to the ED for evaluation of increased shortness of breath and a headache. The patient's notes that over the last 3 or 4 days, she has had a cough, and increased work of breathing. He does note that she is on 3 L oxygen normally, but he has had to increase her oxygen to 4 L, as her home O2 sats were 80% on 3 L. At time of triage, it was 92% on 4 L. The patient reports feeling generalized weakness, and when I ask her what hurts, she points to her head, and rubs her forehead. She notes this pain is a 10 out of 10, and states that this is worst headache of her life. Of note the patient is on a blood thinner for history of A. fib. She denies any recent falls or trauma to the head. The notes that the patient is a code 3, and would not want extreme measures done. Patient's regular doctor is Erika Mccracken. denies any sort of fevers or chills.the patient has, however she feels warm to the touch on examination. Blood pressure is on the low side of normal as well. Headache Pain Score (Numeric/FACES): 10 - Related Data Allergies/Adverse Reactions: Allergies Allergy/AdvReac Type Severity Reaction Status Date / Time atorvastatin calcium AdvReac Muscle Verified 05/30/19 10:42 [From Lipitor] Aches Home Medications: Home Meds Aspirin [Halfprin] 81 mg PO DAILY 05/29/14 [History] B2/Vits A,C,E/Lut/Zeaxanth/Min [Icaps] 2 tab PO QAM 05/29/14 [History] Cholecalciferol (Vitamin D3) [Vitamin D3] 1,000 unit PO BEDTIME 05/29/14 [ History] Furosemide [Lasix] 80 mg PO DAILY 05/29/14 [History] Levothyroxine 25 mcg PO ACBRK 05/29/14 [History] Magnesium Oxide 400 mg PO BEDTIME 05/29/14 [History] Potassium Chloride [Klor-Con M20] 10 meq PO DAILY 05/29/14 [History] Simvastatin [Zocor] 40 mg PO BEDTIME 05/29/14 [History] Omeprazole 20 mg PO DAILY 10/08/17 [History] acetaZOLAMIDE [Acetazolamide] 250 mg PO MOWEFR 10/09/17 [History] Metoprolol Tartrate 50 mg PO BID 10/28/17 [History] Alendronate Sodium [Fosamax] 70 mg PO FR 05/30/19 [History] Warfarin [Coumadin] 2.5 mg PO DAILY 05/30/19 [History] Past Medical History HEENT History: Reports: Impaired Vision, Other (See Below) Other HEENT History: pt wears glasses, reports to have upper denture and lower partial Cardiovascular History: Reports: High Cholesterol, Hypertension Respiratory History: Reports: COPD, Sleep Apnea, Other (See Below) Other Respiratory History: wear oxygen at home & CPAP 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: Musculoskeletal History: Reports: Back Pain, Chronic Endocrine/Metabolic History: Reports: Hypothyroidism, Obesity/BMI 30+ Dermatologic History: Reports: Other (See Below) Other Dermatologic History: open sore to buttocks currently see admission assessment - Past Surgical History GI Surgical History: Reports: Cholecystectomy Female Surgical History: Reports: Hysterectomy, Oophorectomy Social & Family History - Family History Family Medical History: Noncontributory - Tobacco Use Smoking Status *Q: Never Smoker - Caffeine Use Caffeine Use: Reports: None - Recreational Drug Use Recreational Drug Use: No - Living Situation & Occupation Living situation: Reports: , with Spouse Occupation: Retired H&P Review of Systems - Review of Systems: Review Of Systems: Unable To Obtain Reason Not Obtained: Patient too somnolent at the time of interrogation Exam - Exam Exam: See Below - Vital Signs Vital Signs: Last Vital Signs Temp 98.5 F 05/30/19 10:38 Pulse 140 H 05/30/19 10:38 Resp 30 H 05/30/19 10:38 BP 117/59 L 05/30/19 10:38 Pulse Ox 91 L 05/30/19 16:18 Weight: 78.925 kg - Exam Physical Exam Comments:: General Appearance: Lethargic with BiPAP on Head: Atraumatic, Normocephalic Respiratory/Chest: Lungs Clear, Normal Breath Sounds, No Accessory Muscle Use, Chest Non-Tender, Respiratory Distress (mild), Decreased Breath Sounds (diffuse bilaterally). No: Rhonchi Cardiovascular: Regular Rate, Rhythm, No Edema, No Murmur GI/Abdominal: Normal Bowel Sounds, Soft, Non-Tender, No Distention, No Mass Extremities: Normal Inspection, Normal Capillary Refill Skin Exam: Warm, Dry, Intact, Normal Color, No Rash - Patient Data Result Diagrams: 05/31/19 04:51 05/31/19 04:51 Sepsis Event Note - Evaluation Sepsis Screening Result: No Definite Risk - Focused Exam Vital Signs: Vital Signs Temp Pulse Resp BP Pulse Ox Pulse Ox Pulse Ox 05/30/19 16:18 91 L 05/30/19 11:42 93 L 05/30/19 11:21 94 L 05/30/19 10:38 98.5 F 140 H 30 H 117/59 L 91 L Date Exam was Performed: 05/31/19 Time Exam was Performed: 08:03 - Problem List (1) Hypercapnic respiratory failure SNOMED Code(s): 271397668 ICD Code: J96.92 - RESPIRATORY FAILURE, UNSPECIFIED WITH HYPERCAPNIA Status : Acute Current Visit: Yes (2) Pneumonia and influenza Status: Acute Current Visit: Yes (3) Atrial fibrillation with RVR SNOMED Code(s): 961434359363028 ICD Code: I48.91 - UNSPECIFIED ATRIAL FIBRILLATION Status: Acute Priority : High Current Visit: No (4) COPD with acute exacerbation SNOMED Code(s): 191873423 ICD Code: J44.1 - CHRONIC OBSTRUCTIVE PULMONARY DISEASE W (ACUTE) EXACERBATION Status: Acute Priority: High Current Visit: No (5) Generalized weakness SNOMED Code(s): 82060863 ICD Code: R53.1 - WEAKNESS Status: Acute Current Visit: No (6) Hypercapnia SNOMED Code(s): 75276814 ICD Code: R06.89 - OTHER ABNORMALITIES OF BREATHING Status: Acute Priority: High Current Visit: No (7) Hypoalbuminemia SNOMED Code(s): 117769498 ICD Code: E88.09 - OTH DISORDERS OF PLASMA-PROTEIN METABOLISM, NEC Status: Acute Current Visit: Yes (8) Acute respiratory acidosis SNOMED Code(s): 50583721 ICD Code: E87.2 - ACIDOSIS Status: Acute Current Visit: Yes (9) Supratherapeutic international normalized ratio (INR) SNOMED Code(s): 412327497 ICD Code: R79.1 - ABNORMAL COAGULATION PROFILE Status: Acute Current Visit: Yes (10) Anemia SNOMED Code(s): 935572906 ICD Code: D64.9 - ANEMIA, UNSPECIFIED Status: Acute Current Visit: Yes (11) Respiratory acidosis SNOMED Code(s): 17010795 ICD Code: E87.2 - ACIDOSIS Status: Acute Priority: High Current Visit: No Problem List Initiated/Reviewed/Updated: Yes Assessment/Plan Comment:: (1) Pneumonia and influenza COPD with acute exacerbation Acute hypercapnic respiratory failure Acute respiratory acidosis Worsening shortness of breath Acidotic in ER requiring BiPAP placement PLAN - Continue BiPAP - Start Tamiflu - RT evaluation and treatment Atrial fibrillation with RVR Supratherapeutic international normalized ratio (INR) INR >8 on admission No active bleeding PLAN - Hold warfarin - Repeat daily Generalized weakness Hypoalbuminemia Likely from chronic deconditioning PLAN - PT/OT evaluation PROPHYLAXIS DVT- supratherapeutic INR GI-not indicated CODE STATUS: FULL CODE DISPOSITION: Patient will be admitted to medical floor for BiPAP and tamiflu, RT. PT and OT consulted
[2019-05-30] MEDS: Acetaminophen 325 MG Tab PO PRN (19:00)
[2019-05-30] MEDS: Oseltamivir 30 MG Cap PO SCH (20:14)
[2019-05-30] MEDS: Metoprolol Tartrate 50 MG Tab PO SCH (22:40)
[2019-05-31] MEDS: Levothyroxine 25 MCG Tab PO SCH (06:02)
--- NOTE | 2019-05-31 08:29 | PCM.PN ---
- General Info Date of Service: 05/31/19 Admission Dx/Problem (Free Text): Admission Diagnosis/Problem Admission Diagnosis/Problem Pneumonia and influenza Functional Status: Reports: Pain Controlled, Tolerating Diet, Ambulating, Urinating, Incentive Spirometry, Other (Acapella ). Denies: New Symptoms - Review of Systems General: Reports: No Symptoms, Weakness, Fatigue. Denies: Fever, Malaise, Chills HEENT: Reports: No Symptoms. Denies: Headaches, Sore Throat Pulmonary: Reports: Shortness of Breath, Cough, Sputum. Denies: Pleuritic Chest Pain, Wheezing Cardiovascular: Reports: No Symptoms. Denies: Chest Pain, Palpitations, Edema Gastrointestinal: Reports: No Symptoms. Denies: Abdominal Pain, Constipation, Diarrhea, Nausea, Vomiting Genitourinary: Reports: No Symptoms. Denies: Pain Musculoskeletal: Reports: No Symptoms Skin: Reports: No Symptoms. Denies: Cyanosis Neurological: Reports: No Symptoms. Denies: Confusion, Pre-Existing Deficit, Difficulty Walking, Gait Disturbance Psychiatric: Reports: No Symptoms - Patient Data Vitals - Most Recent: Last Vital Signs Temp 97.9 F 05/31/19 04:11 Pulse 77 05/31/19 04:11 Resp 20 05/31/19 04:11 BP 111/86 05/31/19 04:11 Pulse Ox 90 L 05/31/19 05:20 Weight - Most Recent: 174 lb I&O - Last 24 Hours: Intake & Output 05/30/19 05/31/19 05/31/19 22:59 06:59 14:59 Intake Total 750 Output Total 500 Balance 250 Lab Results Last 24 Hours: Laboratory Results - last 24 hr 05/30/19 05/30/19 05/30/19 Range/Units 11:11 11:52 12:06 WBC 10.81 H (3.98-10.04) K/mm3 RBC 3.94 L (3.98-5.22) M/mm3 Hgb 10.7 L (11.2-15.7) gm/dl Hct 37.5 (34.1-44.9) % MCV 95.2 H (79.4-94.8) fl MCH 27.2 (25.6-32.2) pg MCHC 28.5 L (32.2-35.5) g/dl RDW Std Deviation 53.9 H (36.4-46.3) fL Plt Count 230 (182-369) K/mm3 MPV 10.2 (9.4-12.3) fl Neut % (Auto) (34.0-71.1) % Lymph % (Auto) (19.3-51.7) % [place] % (Auto) (4.7-12.5) % Eos % (Auto) (0.7-5.8) Baso % (Auto) (0.1-1.2) % Neut # (Auto) (1.56-6.13) K/mm3 Lymph # (Auto) (1.18-3.74) K/mm3 [place] # (Auto) (0.24-0.36) K/mm3 Eos # (Auto) (0.04-0.36) K/mm3 Baso # (Auto) (0.01-0.08) K/mm3 Neutrophils % (Manual) 84 H (40-60) % Band Neutrophils % 0 (0-10) % Lymphocytes % (Manual) 7 L (20-40) % Atypical Lymphs % 0 % Monocytes % (Manual) 8 (2-10) % Eosinophils % (Manual) 1 (0.7-5.8) % Basophils % (Manual) 0 L (0.1-1.2) Manual Slide Review Platelet Estimate Adequate RBC Morph Comment Normal PT (9.7-12.0) SECONDS INR APTT (22-31) SECONDS Puncture Site Lt radial ABG pH 7.23 L (7.35-7.45) ABG pCO2 69.8 H (35.0-45.0) mmHg ABG pO2 70.0 L (80.0-100.0) mmHg ABG HCO3 28.2 H (22.0-26.0) meq/L ABG O2 Saturation 91.2 L (96.0-97.0) % ABG Base Excess -0.2 (-2-2.0) Nikolai Test Positive O2 Delivery Device Nasal cannula Oxygen Flow Rate 4.0 FiO2 0.00 L (21.00-100.00) % PEEP cmH20 Pressure Support cmH2O Sodium (136-145) mEq/L Potassium (3.5-5.1) mEq/L Chloride (98-107) mEq/L Carbon Dioxide (21-32) mEq/L Anion Gap (5-15) BUN (7-18) mg/dL Creatinine (0.55-1.02) mg/dL Est Cr Clr Drug Dosing Estimated GFR (MDRD) (>60) mL/min BUN/Creatinine Ratio (14-18) Glucose (83-115) mg/dL Lactic Acid 0.8 (0.4-2.0) mmol/L Calcium (8.5-10.1) mg/dL Phosphorus (2.6-4.7) mg/dL Magnesium (1.8-2.4) mg/dl Total Bilirubin (0.2-1.0) mg/dL AST (15-37) U/L ALT (14-59) U/L Alkaline Phosphatase (46-116) U/L Troponin I (0.00-0.056) ng/mL NT-Pro-B Natriuret Pep (0-450) pg/mL Total Protein (6.4-8.2) g/dl Albumin (3.4-5.0) g/dl Globulin gm/dL Albumin/Globulin Ratio (1-2) Urine Color (Yellow) Urine Appearance (Clear) Urine pH (5.0-8.0) Ur Specific [place] (1.005-1.030) Urine Protein (Negative) Urine Glucose (UA) (Negative) Urine Ketones (Negative) Urine Occult Blood (Negative) Urine Nitrite (Negative) Urine Bilirubin (Negative) Urine Urobilinogen (0.2-1.0) Ur Leukocyte Esterase (Negative) Urine RBC (0-5) /hpf Urine WBC (0-5) /hpf Ur Squamous Epith Cells (0-5) /hpf Urine Bacteria (FEW) /hpf Urine Mucus (FEW) /hpf 05/30/19 05/30/19 05/30/19 Range/Units 12:06 12:06 12:06 WBC (3.98-10.04) K/mm3 RBC (3.98-5.22) M/mm3 Hgb (11.2-15.7) gm/dl Hct (34.1-44.9) % MCV (79.4-94.8) fl MCH (25.6-32.2) pg MCHC (32.2-35.5) g/dl RDW Std Deviation (36.4-46.3) fL Plt Count (182-369) K/mm3 MPV (9.4-12.3) fl Neut % (Auto) (34.0-71.1) % Lymph % (Auto) (19.3-51.7) % [place] % (Auto) (4.7-12.5) % Eos % (Auto) (0.7-5.8) Baso % (Auto) (0.1-1.2) % Neut # (Auto) (1.56-6.13) K/mm3 Lymph # (Auto) (1.18-3.74) K/mm3 [place] # (Auto) (0.24-0.36) K/mm3 Eos # (Auto) (0.04-0.36) K/mm3 Baso # (Auto) (0.01-0.08) K/mm3 Neutrophils % (Manual) (40-60) % Band Neutrophils % (0-10) % Lymphocytes % (Manual) (20-40) % Atypical Lymphs % % Monocytes % (Manual) (2-10) % Eosinophils % (Manual) (0.7-5.8) % Basophils % (Manual) (0.1-1.2) Manual Slide Review Platelet Estimate RBC Morph Comment PT > 90.0 H* D (9.7-12.0) SECONDS INR TNP APTT 66 H (22-31) SECONDS Puncture Site ABG pH (7.35-7.45) ABG pCO2 (35.0-45.0) mmHg ABG pO2 (80.0-100.0) mmHg ABG HCO3 (22.0-26.0) meq/L ABG O2 Saturation (96.0-97.0) % ABG Base Excess (-2-2.0) Nikolai Test O2 Delivery Device Oxygen Flow Rate FiO2 (21.00-100.00) % PEEP cmH20 Pressure Support cmH2O Sodium 143 (136-145) mEq/L Potassium 3.8 (3.5-5.1) mEq/L Chloride 107 (98-107) mEq/L Carbon Dioxide 28 (21-32) mEq/L Anion Gap 11.8 (5-15) BUN 20 H (7-18) mg/dL Creatinine 1.0 (0.55-1.02) mg/dL Est Cr Clr Drug Dosing TNP Estimated GFR (MDRD) 53 (>60) mL/min BUN/Creatinine Ratio 20.0 H (14-18) Glucose 129 H (83-115) mg/dL Lactic Acid (0.4-2.0) mmol/L Calcium 8.4 L D (8.5-10.1) mg/dL Phosphorus (2.6-4.7) mg/dL Magnesium 2.2 (1.8-2.4) mg/dl Total Bilirubin 0.5 (0.2-1.0) mg/dL AST 11 L (15-37) U/L ALT 16 (14-59) U/L Alkaline Phosphatase 83 (46-116) U/L Troponin I < 0.017 (0.00-0.056) ng/mL NT-Pro-B Natriuret Pep 5811 H (0-450) pg/mL Total Protein 6.5 (6.4-8.2) g/dl Albumin 2.7 L (3.4-5.0) g/dl Globulin 3.8 gm/dL Albumin/Globulin Ratio 0.7 L (1-2) Urine Color (Yellow) Urine Appearance (Clear) Urine pH (5.0-8.0) Ur Specific [place] (1.005-1.030) Urine Protein (Negative) Urine Glucose (UA) (Negative) Urine Ketones (Negative) Urine Occult Blood (Negative) Urine Nitrite (Negative) Urine Bilirubin (Negative) Urine Urobilinogen (0.2-1.0) Ur Leukocyte Esterase (Negative) Urine RBC (0-5) /hpf Urine WBC (0-5) /hpf Ur Squamous Epith Cells (0-5) /hpf Urine Bacteria (FEW) /hpf Urine Mucus (FEW) /hpf 05/30/19 05/30/19 05/30/19 Range/Units 12:30 17:54 18:45 WBC (3.98-10.04) K/mm3 RBC (3.98-5.22) M/mm3 Hgb (11.2-15.7) gm/dl Hct (34.1-44.9) % MCV (79.4-94.8) fl MCH (25.6-32.2) pg MCHC (32.2-35.5) g/dl RDW Std Deviation (36.4-46.3) fL Plt Count (182-369) K/mm3 MPV (9.4-12.3) fl Neut % (Auto) (34.0-71.1) % Lymph % (Auto) (19.3-51.7) % [place] % (Auto) (4.7-12.5) % Eos % (Auto) (0.7-5.8) Baso % (Auto) (0.1-1.2) % Neut # (Auto) (1.56-6.13) K/mm3 Lymph # (Auto) (1.18-3.74) K/mm3 [place] # (Auto) (0.24-0.36) K/mm3 Eos # (Auto) (0.04-0.36) K/mm3 Baso # (Auto) (0.01-0.08) K/mm3 Neutrophils % (Manual) (40-60) % Band Neutrophils % (0-10) % Lymphocytes % (Manual) (20-40) % Atypical Lymphs % % Monocytes % (Manual) (2-10) % Eosinophils % (Manual) (0.7-5.8) % Basophils % (Manual) (0.1-1.2) Manual Slide Review Platelet Estimate RBC Morph Comment PT 86.5 H* (9.7-12.0) SECONDS INR > 8.00 H* APTT (22-31) SECONDS Puncture Site Lt radial Rt radial ABG pH 7.24 L 7.32 L (7.35-7.45) ABG pCO2 63.6 H 58.1 H (35.0-45.0) mmHg ABG pO2 68.0 L 73.0 L (80.0-100.0) mmHg ABG HCO3 26.5 H 28.8 H (22.0-26.0) meq/L ABG O2 Saturation 90.6 L 93.6 L (96.0-97.0) % ABG Base Excess -1.2 2.0 (-2-2.0) Nikolai Test Positive Positive O2 Delivery Device Bipap Nasal cannula Oxygen Flow Rate 4.0 FiO2 0.00 L 0.00 L (21.00-100.00) % PEEP 6.0 cmH20 Pressure Support 12.0 cmH2O Sodium (136-145) mEq/L Potassium (3.5-5.1) mEq/L Chloride (98-107) mEq/L Carbon Dioxide (21-32) mEq/L Anion Gap (5-15) BUN (7-18) mg/dL Creatinine (0.55-1.02) mg/dL Est Cr Clr Drug Dosing Estimated GFR (MDRD) (>60) mL/min BUN/Creatinine Ratio (14-18) Glucose (83-115) mg/dL Lactic Acid (0.4-2.0) mmol/L Calcium (8.5-10.1) mg/dL Phosphorus (2.6-4.7) mg/dL Magnesium (1.8-2.4) mg/dl Total Bilirubin (0.2-1.0) mg/dL AST (15-37) U/L ALT (14-59) U/L Alkaline Phosphatase (46-116) U/L Troponin I (0.00-0.056) ng/mL NT-Pro-B Natriuret Pep (0-450) pg/mL Total Protein (6.4-8.2) g/dl Albumin (3.4-5.0) g/dl Globulin gm/dL Albumin/Globulin Ratio (1-2) Urine Color (Yellow) Urine Appearance (Clear) Urine pH (5.0-8.0) Ur Specific [place] (1.005-1.030) Urine Protein (Negative) Urine Glucose (UA) (Negative) Urine Ketones (Negative) Urine Occult Blood (Negative) Urine Nitrite (Negative) Urine Bilirubin (Negative) Urine Urobilinogen (0.2-1.0) Ur Leukocyte Esterase (Negative) Urine RBC (0-5) /hpf Urine WBC (0-5) /hpf Ur Squamous Epith Cells (0-5) /hpf Urine Bacteria (FEW) /hpf Urine Mucus (FEW) /hpf 05/30/19 05/31/19 05/31/19 Range/Units 19:10 04:51 04:51 WBC 11.70 H (3.98-10.04) K/mm3 RBC 3.76 L (3.98-5.22) M/mm3 Hgb 10.3 L (11.2-15.7) gm/dl Hct 35.6 (34.1-44.9) % MCV 94.7 (79.4-94.8) fl MCH 27.4 (25.6-32.2) pg MCHC 28.9 L (32.2-35.5) g/dl RDW Std Deviation 53.5 H (36.4-46.3) fL Plt Count 219 (182-369) K/mm3 MPV 9.9 (9.4-12.3) fl Neut % (Auto) 79.9 H (34.0-71.1) % Lymph % (Auto) 9.6 L (19.3-51.7) % [place] % (Auto) 9.6 (4.7-12.5) % Eos % (Auto) 0.6 L (0.7-5.8) Baso % (Auto) 0.1 (0.1-1.2) % Neut # (Auto) 9.36 H (1.56-6.13) K/mm3 Lymph # (Auto) 1.12 L (1.18-3.74) K/mm3 [place] # (Auto) 1.12 H (0.24-0.36) K/mm3 Eos # (Auto) 0.07 (0.04-0.36) K/mm3 Baso # (Auto) 0.01 (0.01-0.08) K/mm3 Neutrophils % (Manual) (40-60) % Band Neutrophils % (0-10) % Lymphocytes % (Manual) (20-40) % Atypical Lymphs % % Monocytes % (Manual) (2-10) % Eosinophils % (Manual) (0.7-5.8) % Basophils % (Manual) (0.1-1.2) Manual Slide Review Normal smear Platelet Estimate RBC Morph Comment PT (9.7-12.0) SECONDS INR APTT (22-31) SECONDS Puncture Site ABG pH (7.35-7.45) ABG pCO2 (35.0-45.0) mmHg ABG pO2 (80.0-100.0) mmHg ABG HCO3 (22.0-26.0) meq/L ABG O2 Saturation (96.0-97.0) % ABG Base Excess (-2-2.0) Nikolai Test O2 Delivery Device Oxygen Flow Rate FiO2 (21.00-100.00) % PEEP cmH20 Pressure Support cmH2O Sodium 143 (136-145) mEq/L Potassium 4.0 (3.5-5.1) mEq/L Chloride 105 (98-107) mEq/L Carbon Dioxide 31 (21-32) mEq/L Anion Gap 11.0 (5-15) BUN 19 H (7-18) mg/dL Creatinine 1.0 (0.55-1.02) mg/dL Est Cr Clr Drug Dosing 31.60 Estimated GFR (MDRD) 53 (>60) mL/min BUN/Creatinine Ratio 19.0 H (14-18) Glucose 113 (83-115) mg/dL Lactic Acid (0.4-2.0) mmol/L Calcium 8.6 (8.5-10.1) mg/dL Phosphorus 2.0 L (2.6-4.7) mg/dL Magnesium 2.2 (1.8-2.4) mg/dl Total Bilirubin (0.2-1.0) mg/dL AST (15-37) U/L ALT (14-59) U/L Alkaline Phosphatase (46-116) U/L Troponin I (0.00-0.056) ng/mL NT-Pro-B Natriuret Pep (0-450) pg/mL Total Protein (6.4-8.2) g/dl Albumin (3.4-5.0) g/dl Globulin gm/dL Albumin/Globulin Ratio (1-2) Urine Color Yellow (Yellow) Urine Appearance Clear (Clear) Urine pH 6.0 (5.0-8.0) Ur Specific [place] 1.020 (1.005-1.030) Urine Protein Negative (Negative) Urine Glucose (UA) Negative (Negative) Urine Ketones Negative (Negative) Urine Occult Blood Trace-intact H (Negative) Urine Nitrite Negative (Negative) Urine Bilirubin Negative (Negative) Urine Urobilinogen 0.2 (0.2-1.0) Ur Leukocyte Esterase 1+ H (Negative) Urine RBC 0-5 (0-5) /hpf Urine WBC 5-10 H (0-5) /hpf Ur Squamous Epith Cells 0-5 (0-5) /hpf Urine Bacteria Few (FEW) /hpf Urine Mucus Rare (FEW) /hpf 05/31/19 Range/Units 04:51 WBC (3.98-10.04) K/mm3 RBC (3.98-5.22) M/mm3 Hgb (11.2-15.7) gm/dl Hct (34.1-44.9) % MCV (79.4-94.8) fl MCH (25.6-32.2) pg MCHC (32.2-35.5) g/dl RDW Std Deviation (36.4-46.3) fL Plt Count (182-369) K/mm3 MPV (9.4-12.3) fl Neut % (Auto) (34.0-71.1) % Lymph % (Auto) (19.3-51.7) % [place] % (Auto) (4.7-12.5) % Eos % (Auto) (0.7-5.8) Baso % (Auto) (0.1-1.2) % Neut # (Auto) (1.56-6.13) K/mm3 Lymph # (Auto) (1.18-3.74) K/mm3 [place] # (Auto) (0.24-0.36) K/mm3 Eos # (Auto) (0.04-0.36) K/mm3 Baso # (Auto) (0.01-0.08) K/mm3 Neutrophils % (Manual) (40-60) % Band Neutrophils % (0-10) % Lymphocytes % (Manual) (20-40) % Atypical Lymphs % % Monocytes % (Manual) (2-10) % Eosinophils % (Manual) (0.7-5.8) % Basophils % (Manual) (0.1-1.2) Manual Slide Review Platelet Estimate RBC Morph Comment PT 78.2 H* (9.7-12.0) SECONDS INR > 8.00 H* APTT (22-31) SECONDS Puncture Site ABG pH (7.35-7.45) ABG pCO2 (35.0-45.0) mmHg ABG pO2 (80.0-100.0) mmHg ABG HCO3 (22.0-26.0) meq/L ABG O2 Saturation (96.0-97.0) % ABG Base Excess (-2-2.0) Nikolai Test O2 Delivery Device Oxygen Flow Rate FiO2 (21.00-100.00) % PEEP cmH20 Pressure Support cmH2O Sodium (136-145) mEq/L Potassium (3.5-5.1) mEq/L Chloride (98-107) mEq/L Carbon Dioxide (21-32) mEq/L Anion Gap (5-15) BUN (7-18) mg/dL Creatinine (0.55-1.02) mg/dL Est Cr Clr Drug Dosing Estimated GFR (MDRD) (>60) mL/min BUN/Creatinine Ratio (14-18) Glucose (83-115) mg/dL Lactic Acid (0.4-2.0) mmol/L Calcium (8.5-10.1) mg/dL Phosphorus (2.6-4.7) mg/dL Magnesium (1.8-2.4) mg/dl Total Bilirubin (0.2-1.0) mg/dL AST (15-37) U/L ALT (14-59) U/L Alkaline Phosphatase (46-116) U/L Troponin I (0.00-0.056) ng/mL NT-Pro-B Natriuret Pep (0-450) pg/mL Total Protein (6.4-8.2) g/dl Albumin (3.4-5.0) g/dl Globulin gm/dL Albumin/Globulin Ratio (1-2) Urine Color (Yellow) Urine Appearance (Clear) Urine pH (5.0-8.0) Ur Specific [place] (1.005-1.030) Urine Protein (Negative) Urine Glucose (UA) (Negative) Urine Ketones (Negative) Urine Occult Blood (Negative) Urine Nitrite (Negative) Urine Bilirubin (Negative) Urine Urobilinogen (0.2-1.0) Ur Leukocyte Esterase (Negative) Urine RBC (0-5) /hpf Urine WBC (0-5) /hpf Ur Squamous Epith Cells (0-5) /hpf Urine Bacteria (FEW) /hpf Urine Mucus (FEW) /hpf Johnny Results Last 24 Hours: Microbiology 05/30/19 11:36 Influenza Type A Antigen Screen - Final Nasopharyngeal Swab NEGATIVE INFLUENZA A VIRUS AG REFERENCE RANGE: NEGATIVE Influenza Type B Antigen Screen - Final Positive Influenza B Ag Med Orders - Current: Current Medications Acetaminophen (Tylenol) 325 mg PO Q4H PRN PRN Reason: Pain (Mild 1-3)/fever Last Admin: 05/30/19 19:00 Dose: 325 mg Aspirin (Halfprin) 81 mg PO DAILY JAZZY Levothyroxine Sodium (Levothyroxine) 25 mcg PO ACBRK JAZZY Last Admin: 05/31/19 06:02 Dose: 25 mcg Metoprolol Tartrate (Lopressor) 50 mg PO BID [facility] Last Admin: 05/30/19 22:40 Dose: Not Given Ondansetron HCl (Zofran Odt) 4 mg PO Q6H PRN PRN Reason: nausea, able to take PO Ondansetron HCl (Zofran) 4 mg IV Q6H PRN PRN Reason: Nausea/Vomiting Oseltamivir Phosphate (Tamiflu) 30 mg PO BID [facility] Last Admin: 05/30/19 20:14 Dose: 30 mg Discontinued Medications Furosemide (Lasix) 60 mg IVPUSH NOW ONE Stop: 05/30/19 14:21 Last Admin: 05/30/19 15:10 Dose: 60 mg Sodium Chloride (Normal Saline) 1,000 mls @ 999 mls/hr IV ONETIME ONE Stop: 05/30/19 12:09 Last Admin: 05/30/19 11:35 Dose: 999 mls/hr - Exam Quality Assessment: Supplemental Oxygen (baseline - 2L ), DVT Prophylaxis General: Alert, Oriented, Cooperative, No Acute Distress HEENT: Pupils Equal, Pupils Reactive, Mucous Membr. Moist/Trion Neck: Supple, Trachea Midline Lungs: Normal Respiratory Effort, Decreased Breath Sounds Cardiovascular: Regular Rate, Regular Rhythm GI/Abdominal Exam: Normal Bowel Sounds, Soft, Non-Tender, No Distention, No Abnormal Bruit (Female) Exam: Deferred Back Exam: Normal Inspection, Full Range of Motion Extremities: Normal Inspection, Normal Range of Motion, Non-Tender, No Pedal Edema, Normal Capillary Refill Skin: Warm, Dry, Intact Neurological: No New Focal Deficit Psy/Mental Status: Alert, Normal Affect, Normal Mood Sepsis Event Note - Evaluation Sepsis Screening Result: No Definite Risk - Focused Exam Vital Signs: Vital Signs Temp Pulse Resp BP Pulse Ox Pulse Ox 05/31/19 05:20 90 L 05/31/19 05:19 88 L 05/31/19 04:11 97.9 F 77 20 111/86 92 L 05/31/19 02:20 94 L 05/31/19 02:19 96 05/30/19 23:29 82 91 L 05/30/19 23:24 98.6 F 78 16 100/58 L 83 L 05/30/19 22:40 81 102/50 L Date Exam was Performed: 05/31/19 Time Exam was Performed: 13:54 - Problem List & Annotations (1) Acute respiratory acidosis SNOMED Code(s): 44426507 Code(s): E87.2 - ACIDOSIS Status: Acute Current Visit: Yes (2) Anemia SNOMED Code(s): 689489953 Code(s): D64.9 - ANEMIA, UNSPECIFIED Status: Acute Current Visit: Yes (3) Hypercapnic respiratory failure SNOMED Code(s): 585333010 Code(s): J96.92 - RESPIRATORY FAILURE, UNSPECIFIED WITH HYPERCAPNIA Status : Acute Current Visit: Yes (4) Hypoalbuminemia SNOMED Code(s): 149409677 Code(s): E88.09 - H DISORDERS OF PLASMA-PROTEIN METABOLISM, NEC Status: Acute Current Visit: Yes (5) Pneumonia and influenza Status: Acute Current Visit: Yes (6) Supratherapeutic international normalized ratio (INR) SNOMED Code(s): 209764489 Code(s): R79.1 - ABNORMAL COAGULATION PROFILE Status: Acute Current Visit : Yes (7) COPD with acute exacerbation SNOMED Code(s): 961928336 Code(s): J44.1 - CHRONIC OBSTRUCTIVE PULMONARY DISEASE W (ACUTE) EXACERBATION Status: Acute Priority: High Current Visit: No - Problem List Review Problem List Initiated/Reviewed/Updated: Yes - Plan Plan:: (1) Pneumonia and influenza COPD with acute exacerbation Acute hypercapnic respiratory failure Acute respiratory acidosis Worsening shortness of breath Acidotic in ER requiring BiPAP placement Wears home CPAP while sleeping Home oxygen -2L baseline Positive influenza B Has baseline severe scoliosis - Risk factor History of frequent PNA PLAN - Continue BiPAP - Continue Tamiflu - RT evaluation and treatment - Start Rocephin 2 gm and azithromycin 500mg now and then 250mg daily for 4 days - IS/Acapella - Xopenex/Ipratropium PRN - Repeat CXR in 24-48 hours - O2 as needed - currently at baseline - Procalcitonin pending - VRP, Mycoplasma, Strep pneumo ordered - Unable to produce sputum sample - Blood cultures negative so far - Lactic acid WNL x2 Atrial fibrillation with RVR Supratherapeutic international normalized ratio (INR) INR >8 on admission, PT decreasing No active bleeding PLAN - Hold warfarin - Repeat daily - Home metoprolol - Telemetry Generalized weakness Hypoalbuminemia Likely from chronic deconditioning PLAN - PT/OT evaluation Hypophosphatemia Phosphorous 2.0 PLAN - Supplement PROPHYLAXIS DVT- supratherapeutic INR GI-not indicated CODE STATUS: FULL CODE DISPOSITION: Patient will be admitted to medical floor for BiPAP and tamiflu, RT. PT and OT consulted
[2019-05-31] MEDS: Aspirin 81 MG Tab.EC PO SCH (09:07)
[2019-05-31] MEDS: Metoprolol Tartrate 50 MG Tab PO SCH ×2 (09:08→20:45)
[2019-05-31] MEDS: Oseltamivir 30 MG Cap PO SCH ×2 (09:08→20:42)
[2019-05-31] MEDS: Phosphorus #1 250 MG Tab PO SCH ×2 (09:12→20:42)
[2019-05-31] MEDS: Acetaminophen 325 MG Tab PO PRN ×2 (09:13→15:04)
[2019-05-31] MEDS ORDERED: Albuterol/Ipratropium 3.0-0.5 MG/3 ML Neb Soln NEB PRN (10:00)
[2019-05-31] MEDS ORDERED: acetaZOLAMIDE 250 MG Tab PO SCH (10:00)
[2019-05-31] MEDS ORDERED: cefTRIAXone 2 GM in Sodium Chloride 0.9% 100 ML IV SCH (10:00)
[2019-05-31] MEDS ORDERED: Levalbuterol HCl 1.25 MG/3 ML Neb NEB PRN (10:57)
[2019-05-31] MEDS ORDERED: Azithromycin 500 MG in Sodium Chloride 0.9% 250 ML IV ONE ×2 (11:00→14:00)
[2019-05-31] MEDS ORDERED: Metoprolol Tartrate 5 MG/5 ML SDV IVPUSH PRN (14:14)
[2019-05-31] MEDS ORDERED: Sodium Chloride 0.9% 1,000 ML IV SCH (14:15)
[2019-05-31] MEDS: cefTRIAXone 2 GM in Sodium Chloride 0.9% 100 ML IV SCH (14:24)
[2019-05-31] MEDS: methylPREDNISolone Sodium Succinate 40 MG/1 ML SDV IVPUSH SCH (17:35)
[2019-06-01] MEDS: methylPREDNISolone Sodium Succinate 40 MG/1 ML SDV IVPUSH SCH ×3 (01:34→17:02)
[2019-06-01] MEDS: Acetaminophen 325 MG Tab PO PRN ×4 (03:17→21:13)
[2019-06-01] MEDS: Levothyroxine 25 MCG Tab PO SCH (05:46)
--- NOTE | 2019-06-01 06:57 | PCM.PN ---
- General Info Date of Service: 06/01/19 Admission Dx/Problem (Free Text): Admission Diagnosis/Problem Admission Diagnosis/Problem Pneumonia and influenza Subjective Update: Follow Up Functional Status: Reports: Pain Controlled - Review of Systems General: Denies: Fever, Chills HEENT: Reports: No Symptoms Pulmonary: Reports: Shortness of Breath Cardiovascular: Denies: Chest Pain, Palpitations Gastrointestinal: Denies: Abdominal Pain, Nausea, Vomiting Genitourinary: Reports: No Symptoms Musculoskeletal: Reports: No Symptoms Skin: Denies: Cyanosis Neurological: Denies: Confusion, Trouble Speaking Psychiatric: Denies: Anxiety, Agitation, Hallucinations Systems Review Comment:: No overnight or acute issues. She woke up early this morning alert and awake. She is currently sitting up in bed on 3L NC. Her pCO2 on ABG is about the same. - Patient Data Vitals - Most Recent: Last Vital Signs Temp 36.4 C 06/01/19 04:00 Pulse 71 06/01/19 04:15 Resp 24 H 06/01/19 04:00 BP 107/74 06/01/19 05:52 Pulse Ox 96 06/01/19 05:54 Weight - Most Recent: 80.014 kg I&O - Last 24 Hours: Intake & Output 05/31/19 05/31/19 06/01/19 14:59 22:59 06:59 Intake Total 120 1420 722 Output Total 550 100 Balance 120 870 622 Lab Results Last 24 Hours: Laboratory Results - last 24 hr 05/30/19 05/31/19 05/31/19 Range/Units 13:43 04:51 11:11 WBC (3.98-10.04) K/mm3 RBC (3.98-5.22) M/mm3 Hgb (11.2-15.7) gm/dl Hct (34.1-44.9) % MCV (79.4-94.8) fl MCH (25.6-32.2) pg MCHC (32.2-35.5) g/dl RDW Std Deviation (36.4-46.3) fL Plt Count (182-369) K/mm3 MPV (9.4-12.3) fl Neut % (Auto) (34.0-71.1) % Lymph % (Auto) (19.3-51.7) % [place] % (Auto) (4.7-12.5) % Eos % (Auto) (0.7-5.8) Baso % (Auto) (0.1-1.2) % Neut # (Auto) (1.56-6.13) K/mm3 Lymph # (Auto) (1.18-3.74) K/mm3 [place] # (Auto) (0.24-0.36) K/mm3 Eos # (Auto) (0.04-0.36) K/mm3 Baso # (Auto) (0.01-0.08) K/mm3 Puncture Site ABG pH (7.35-7.45) ABG pCO2 (35.0-45.0) mmHg ABG pO2 (80.0-100.0) mmHg ABG HCO3 (22.0-26.0) meq/L ABG O2 Saturation (96.0-97.0) % ABG Base Excess (-2-2.0) A-a Gradient mmHg O2 Delivery Device Oxygen Flow Rate FiO2 (21.00-100.00) % Lactic Acid 0.7 (0.4-2.0) mmol/L Procalcitonin 16.02 H (<0.10) ng/mL Mycoplasma pneumon IgM Positive H (NEGATIVE) 05/31/19 05/31/19 06/01/19 Range/Units 16:42 17:05 05:55 WBC 9.21 (3.98-10.04) K/mm3 RBC 3.75 L (3.98-5.22) M/mm3 Hgb 10.4 L (11.2-15.7) gm/dl Hct 35.8 (34.1-44.9) % MCV 95.5 H (79.4-94.8) fl MCH 27.7 (25.6-32.2) pg MCHC 29.1 L (32.2-35.5) g/dl RDW Std Deviation 54.9 H (36.4-46.3) fL Plt Count 245 (182-369) K/mm3 MPV 9.8 (9.4-12.3) fl Neut % (Auto) 94.3 H (34.0-71.1) % Lymph % (Auto) 4.3 L (19.3-51.7) % [place] % (Auto) 1.2 L (4.7-12.5) % Eos % (Auto) 0 L (0.7-5.8) Baso % (Auto) 0.0 L (0.1-1.2) % Neut # (Auto) 8.68 H (1.56-6.13) K/mm3 Lymph # (Auto) 0.40 L (1.18-3.74) K/mm3 [place] # (Auto) 0.11 L (0.24-0.36) K/mm3 Eos # (Auto) 0.00 L (0.04-0.36) K/mm3 Baso # (Auto) 0.00 L (0.01-0.08) K/mm3 Puncture Site Rt radial ABG pH 7.23 L (7.35-7.45) ABG pCO2 74.9 H* (35.0-45.0) mmHg ABG pO2 80.0 (80.0-100.0) mmHg ABG HCO3 29.9 H (22.0-26.0) meq/L ABG O2 Saturation 95.3 L (96.0-97.0) % ABG Base Excess 1.6 (-2-2.0) A-a Gradient 141 mmHg O2 Delivery Device Bipap 12/6 Oxygen Flow Rate 6.0 FiO2 44.00 (21.00-100.00) % Lactic Acid 0.8 (0.4-2.0) mmol/L Procalcitonin (<0.10) ng/mL Mycoplasma pneumon IgM (NEGATIVE) Johnny Results Last 24 Hours: Microbiology 05/30/19 11:52 Aerobic Blood Culture - Preliminary Blood - Venous - Lab Draw NO GROWTH AFTER 1 DAY Anaerobic Blood Culture - Preliminary NO GROWTH AFTER 1 DAY 05/30/19 12:06 Aerobic Blood Culture - Preliminary Blood - Venous NO GROWTH AFTER 1 DAY Anaerobic Blood Culture - Preliminary NO GROWTH AFTER 1 DAY Med Orders - Current: Current Medications Acetaminophen (Tylenol) 325 mg PO Q4H PRN PRN Reason: Pain (Mild 1-3)/fever Last Admin: 06/01/19 03:17 Dose: 325 mg Acetazolamide (Diamox) 250 mg PO MOWEFR [facility] Last Admin: 05/31/19 11:43 Dose: 250 mg Aspirin (Halfprin) 81 mg PO DAILY [facility] Last Admin: 05/31/19 09:07 Dose: 81 mg Furosemide (Lasix) 80 mg PO DAILY [facility] Ceftriaxone Sodium 2 gm/ (Sodium Chloride) 100 mls @ 200 mls/hr IV Q24H [facility] Last Admin: 05/31/19 14:24 Dose: Not Given Azithromycin 250 mg/ Sodium (Chloride) 250 mls @ 250 mls/hr IV Q24H [facility] Stop: 06/04/19 14:59 Sodium Chloride (Normal Saline) 1,000 mls @ 25 mls/hr IV ASDIRECTED [facility] Stop: 06/01/19 14:14 Last Admin: 05/31/19 16:11 Dose: 25 mls/hr Levalbuterol HCl (Xopenex) 1.25 mg NEB Q6HRRT PRN PRN Reason: SOB/Wheezing Last Admin: 05/31/19 11:58 Dose: 1.25 mg Levothyroxine Sodium (Levothyroxine) 25 mcg PO ACBRK [facility] Last Admin: 06/01/19 05:46 Dose: 25 mcg Methylprednisolone Sodium Succinate (Solu-Medrol) 60 mg IVPUSH Q8H [facility] Last Admin: 06/01/19 01:34 Dose: 60 mg Metoprolol Tartrate (Lopressor) 50 mg PO BID [facility] Last Admin: 05/31/19 20:45 Dose: 50 mg Metoprolol Tartrate (Lopressor) 5 mg IVPUSH Q4H PRN PRN Reason: Tachycardia Last Admin: 05/31/19 18:14 Dose: 5 mg Ondansetron HCl (Zofran Odt) 4 mg PO Q6H PRN PRN Reason: nausea, able to take PO Ondansetron HCl (Zofran) 4 mg IV Q6H PRN PRN Reason: Nausea/Vomiting Oseltamivir Phosphate (Tamiflu) 30 mg PO BID [facility] Stop: 06/04/19 09:01 Last Admin: 05/31/19 20:42 Dose: 30 mg Discontinued Medications Albuterol/Ipratropium (Duoneb 3.0-0.5 Mg/3 Ml) 3 ml NEB Q6HRRT PRN PRN Reason: wheezing/SOB/cough Furosemide (Lasix) 60 mg IVPUSH NOW ONE Stop: 05/30/19 14:21 Last Admin: 05/30/19 15:10 Dose: 60 mg Sodium Chloride (Normal Saline) 1,000 mls @ 999 mls/hr IV ONETIME ONE Stop: 05/30/19 12:09 Last Admin: 05/30/19 11:35 Dose: 999 mls/hr Ceftriaxone Sodium 2 gm/ (Sodium Chloride) 100 mls @ 200 mls/hr IV Q24H [facility] Last Admin: 05/31/19 11:33 Dose: 200 mls/hr Azithromycin 500 mg/ Sodium (Chloride) 250 mls @ 250 mls/hr IV ONETIME ONE Stop: 05/31/19 11:59 Last Admin: 05/31/19 14:24 Dose: Not Given Azithromycin 250 mg/ Sodium (Chloride) 250 mls @ 250 mls/hr IV Q24H [facility] Stop: 06/04/19 11:59 Azithromycin 500 mg/ Sodium (Chloride) 250 mls @ 250 mls/hr IV ONETIME ONE Stop: 05/31/19 14:59 Last Admin: 05/31/19 14:25 Dose: 250 mls/hr Sodium Phosphate (Neutra-Phos) 250 mg PO BID [facility] Stop: 05/31/19 21:01 Last Admin: 05/31/19 20:42 Dose: 250 mg - Exam Quality Assessment: Supplemental Oxygen General: Alert, Oriented, Cooperative HEENT: Pupils Equal, Pupils Reactive, EOMI, Mucous Membr. Moist/[place] Neck: Supple Lungs: Normal Respiratory Effort, Decreased Breath Sounds Cardiovascular: Regular Rate, Regular Rhythm GI/Abdominal Exam: Normal Bowel Sounds, Soft, Non-Tender, No Organomegaly, No Distention, No Abnormal Bruit (Female) Exam: Deferred Back Exam: Normal Inspection, Full Range of Motion Extremities: Normal Inspection, Normal Range of Motion, Non-Tender, No Pedal Edema, Normal Capillary Refill Peripheral Pulses: 2+: Dorsalis Pedis (L), Dorsalis Pedis (R) Skin: Warm, Dry, Intact Neurological: No New Focal Deficit Psy/Mental Status: Alert, Normal Affect, Normal Mood Sepsis Event Note - Evaluation Sepsis Screening Result: Severe Sepsis Risk - Focused Exam Vital Signs: Vital Signs Temp Pulse Resp BP BP Pulse Ox Pulse Ox 06/01/19 05:54 96 06/01/19 05:52 107/74 94 L 06/01/19 05:00 94 L 06/01/19 04:15 71 89 L 06/01/19 04:00 36.4 C 24 H 99/59 L 89 L 06/01/19 03:27 06/01/19 03:00 73 94 L 06/01/19 02:00 61 91 L 06/01/19 01:00 88 L 06/01/19 00:00 36.6 C 22 H 93/57 L 90 L 05/31/19 23:30 90 L 05/31/19 23:00 91 L 05/31/19 22:57 126 H 87 L 05/31/19 22:24 88 L 05/31/19 22:00 131 H 91 L 05/31/19 21:05 05/31/19 21:00 84 94 L 05/31/19 20:50 05/31/19 20:45 76 120/63 98 05/31/19 20:00 37.3 C 22 H 104/70 94 L 05/31/19 19:01 119 H 91 L Pulse Ox 06/01/19 05:54 06/01/19 05:52 06/01/19 05:00 06/01/19 04:15 06/01/19 04:00 06/01/19 03:27 93 L 06/01/19 03:00 06/01/19 02:00 06/01/19 01:00 06/01/19 00:00 05/31/19 23:30 05/31/19 23:00 05/31/19 22:57 05/31/19 22:24 05/31/19 22:00 05/31/19 21:05 91 L 05/31/19 21:00 05/31/19 20:50 96 05/31/19 20:45 05/31/19 20:00 05/31/19 19:01 Date Exam was Performed: 06/01/19 Time Exam was Performed: 21:02 - Problem List Review Problem List Initiated/Reviewed/Updated: Yes - My Orders Last 24 Hours: My Active Orders 05/31/19 17:00 methylPREDNISolone Sod Succ [Solu-MEDROL] 60 mg IVPUSH Q8H - Plan Plan:: Pneumonia and influenza COPD with acute exacerbation Acute hypercapnic respiratory failure Acute respiratory acidosis Worsening shortness of breath Acidotic in ER requiring BiPAP placement Wears home CPAP while sleeping Home oxygen -2L baseline Positive influenza B Has baseline severe scoliosis - Risk factor History of frequent PNA Clinically she is about the same Repeat ABG shows essentially no changes on her CO2 level PLAN - Continue BiPAP and Tamiflu - RT evaluation and treatment - Continue IV Rocephin and Azithromycin daily - IS/Acapella - Xopenex/Ipratropium PRN - Continue home dose Acetazolamide - Repeat CXR in 24-48 hours - O2 as needed - currently at baseline - Procalcitonin pending - VRP, Mycoplasma, Strep pneumo ordered - Unable to produce sputum sample - Blood cultures negative so far - Lactic acid WNL x2 Atrial fibrillation with RVR Supratherapeutic international normalized ratio (INR) INR >8 on admission, PT decreasing No active bleeding INR is 5.06 PLAN - Continue to hold warfarin - Repeat daily - Home metoprolol - Telemetry Generalized weakness Hypoalbuminemia Likely from chronic deconditioning PLAN - PT/OT evaluation Normocytic Hypochromic Anemia Carries a hx/o Anemia in the past Hgb is at baseline Has underlying CKD This likely due to acute illness PLAN - Will monitor Hypotension 2/2 Underlying Sepsis BP remains soft PLAN - Continue to monitor - Put parameters on BP medication(s) S/p Hypophosphatemia Phosphorous 2.0-->3.4 PLAN - Supplement Sepsis, POA 2/2 PNA and Viral Infection On IV antibiotics PLAN -Continue current treatment PROPHYLAXIS DVT- supratherapeutic INR GI-not indicated CODE STATUS: FULL CODE DISPOSITION: Patient was moved to the unit due to clinical deterioration. Spoke to her family last night and they rescinded her code status to DNR/DNI. She is essentially about the same. Her Repeat CXR this AM shows slightly worse from yesterday's imaging study. Prognosis is guarded-poor at this time. LOS > 96 hrs due complexity of acute illness.
[2019-06-01] MEDS: Aspirin 81 MG Tab.EC PO SCH (08:06)
[2019-06-01] MEDS: Metoprolol Tartrate 50 MG Tab PO SCH ×2 (08:06→20:27)
[2019-06-01] MEDS: Furosemide 40 MG Tab PO SCH (08:07)
[2019-06-01] MEDS: Oseltamivir 30 MG Cap PO SCH ×2 (08:08→20:27)
[2019-06-01] MEDS ORDERED: Azithromycin 250 MG in Sodium Chloride 0.9% 250 ML IV SCH ×2 (11:00→14:00)
[2019-06-01] MEDS: cefTRIAXone 2 GM in Sodium Chloride 0.9% 100 ML IV SCH (13:09)
--- NOTE | 2019-06-01 14:26 | CR ---
Chest: Portable view of the chest was obtained. Comparison: Prior chest x-ray of 05/30/27. Scoliosis is noted. Heart size is slightly enlarged. Pulmonary lung markings are increased which appears stable. Probable atelectasis within the left base. Impression: 1. Findings as noted above. Diagnostic code #3 This report was dictated in [place] Standard Time
[2019-06-02] MEDS: methylPREDNISolone Sodium Succinate 40 MG/1 ML SDV IVPUSH SCH ×2 (01:18→08:02)
[2019-06-02] MEDS: Levothyroxine 25 MCG Tab PO SCH (06:08)
[2019-06-02] MEDS: Acetaminophen 325 MG Tab PO PRN (06:35)
--- NOTE | 2019-06-02 07:10 | PCM.PN ---
- General Info Date of Service: 06/02/19 Admission Dx/Problem (Free Text): Admission Diagnosis/Problem Admission Diagnosis/Problem Pneumonia and influenza Subjective Update: Follow Up Functional Status: Reports: Pain Controlled, Tolerating Diet, Ambulating, Urinating - Review of Systems General: Reports: Fatigue. Denies: Fever, Chills HEENT: Reports: No Symptoms Pulmonary: Reports: Shortness of Breath. Denies: Cough, Wheezing Cardiovascular: Denies: Chest Pain, Palpitations, Dyspnea on Exertion, Lightheadedness Gastrointestinal: Denies: Abdominal Pain, Nausea, Vomiting Genitourinary: Reports: No Symptoms Musculoskeletal: Reports: No Symptoms Skin: Denies: Cyanosis, Mottled, Pallor, Rash Neurological: Denies: Confusion, Numbness, Seizure Psychiatric: Denies: Anxiety, Agitation, Hallucinations Systems Review Comment:: No overnight issues. - Patient Data Vitals - Most Recent: Last Vital Signs Temp 36.6 C 06/02/19 04:00 Pulse 67 06/01/19 20:27 Resp 16 06/02/19 04:00 BP 91/41 L 06/02/19 04:00 Pulse Ox 97 06/02/19 06:29 Weight - Most Recent: 81.102 kg I&O - Last 24 Hours: Intake & Output 06/01/19 06/02/19 06/02/19 22:59 06:59 14:59 Intake Total 1414 400 Output Total 150 200 Balance 1264 200 Lab Results Last 24 Hours: Laboratory Results - last 24 hr 06/01/19 06/01/19 06/01/19 Range/Units 05:55 05:55 05:55 WBC (3.98-10.04) K/mm3 RBC (3.98-5.22) M/mm3 Hgb (11.2-15.7) gm/dl Hct (34.1-44.9) % MCV (79.4-94.8) fl MCH (25.6-32.2) pg MCHC (32.2-35.5) g/dl RDW Std Deviation (36.4-46.3) fL Plt Count (182-369) K/mm3 MPV (9.4-12.3) fl Neut % (Auto) (34.0-71.1) % Lymph % (Auto) (19.3-51.7) % [place] % (Auto) (4.7-12.5) % Eos % (Auto) (0.7-5.8) Baso % (Auto) (0.1-1.2) % Neut # (Auto) (1.56-6.13) K/mm3 Lymph # (Auto) (1.18-3.74) K/mm3 [place] # (Auto) (0.24-0.36) K/mm3 Eos # (Auto) (0.04-0.36) K/mm3 Baso # (Auto) (0.01-0.08) K/mm3 Manual Slide Review Abnormal smear PT 50.3 H* D (9.7-12.0) SECONDS INR 5.06 H* Puncture Site ABG pH (7.35-7.45) ABG pCO2 (35.0-45.0) mmHg ABG pO2 (80.0-100.0) mmHg ABG HCO3 (22.0-26.0) meq/L ABG O2 Saturation (96.0-97.0) % ABG Base Excess (-2-2.0) A-a Gradient mmHg O2 Delivery Device Oxygen Flow Rate FiO2 (21.00-100.00) % Sodium (136-145) mEq/L Potassium (3.5-5.1) mEq/L Chloride (98-107) mEq/L Carbon Dioxide (21-32) mEq/L Anion Gap (5-15) BUN (7-18) mg/dL Creatinine (0.55-1.02) mg/dL Est Cr Clr Drug Dosing mL/min Estimated GFR (MDRD) (>60) mL/min BUN/Creatinine Ratio (14-18) Glucose (83-115) mg/dL Calcium 8.0 L (8.5-10.1) mg/dL Magnesium (1.8-2.4) mg/dl C-Reactive Protein 21.7 H* (<1.0) mg/dL 06/01/19 06/02/19 06/02/19 Range/Units 07:29 04:40 04:40 WBC 11.64 H (3.98-10.04) K/mm3 RBC 3.64 L (3.98-5.22) M/mm3 Hgb 9.8 L (11.2-15.7) gm/dl Hct 35.0 (34.1-44.9) % MCV 96.2 H (79.4-94.8) fl MCH 26.9 (25.6-32.2) pg MCHC 28.0 L (32.2-35.5) g/dl RDW Std Deviation 54.7 H (36.4-46.3) fL Plt Count 286 (182-369) K/mm3 MPV 10.0 (9.4-12.3) fl Neut % (Auto) 88.4 H (34.0-71.1) % Lymph % (Auto) 6.8 L (19.3-51.7) % [place] % (Auto) 4.5 L (4.7-12.5) % Eos % (Auto) 0 L (0.7-5.8) Baso % (Auto) 0.0 L (0.1-1.2) % Neut # (Auto) 10.30 H (1.56-6.13) K/mm3 Lymph # (Auto) 0.79 L (1.18-3.74) K/mm3 [place] # (Auto) 0.52 H (0.24-0.36) K/mm3 Eos # (Auto) 0.00 L (0.04-0.36) K/mm3 Baso # (Auto) 0.00 L (0.01-0.08) K/mm3 Manual Slide Review Abnormal smear PT (9.7-12.0) SECONDS INR Puncture Site Lt radial ABG pH 7.23 L (7.35-7.45) ABG pCO2 73.5 H* (35.0-45.0) mmHg ABG pO2 94.0 (80.0-100.0) mmHg ABG HCO3 29.9 H (22.0-26.0) meq/L ABG O2 Saturation 95.7 L (96.0-97.0) % ABG Base Excess 1.4 (-2-2.0) A-a Gradient 43 mmHg O2 Delivery Device Nasal cannula Oxygen Flow Rate 3.0 FiO2 32.00 (21.00-100.00) % Sodium 143 (136-145) mEq/L Potassium 3.8 (3.5-5.1) mEq/L Chloride 104 (98-107) mEq/L Carbon Dioxide 32 (21-32) mEq/L Anion Gap 10.8 (5-15) BUN 37 H (7-18) mg/dL Creatinine 1.1 H (0.55-1.02) mg/dL Est Cr Clr Drug Dosing 28.76 mL/min Estimated GFR (MDRD) 47 (>60) mL/min BUN/Creatinine Ratio 33.6 H (14-18) Glucose 153 H (83-115) mg/dL Calcium 8.3 L (8.5-10.1) mg/dL Magnesium 2.5 H (1.8-2.4) mg/dl C-Reactive Protein 10.9 H* (<1.0) mg/dL 06/02/19 Range/Units 04:40 WBC (3.98-10.04) K/mm3 RBC (3.98-5.22) M/mm3 Hgb (11.2-15.7) gm/dl Hct (34.1-44.9) % MCV (79.4-94.8) fl MCH (25.6-32.2) pg MCHC (32.2-35.5) g/dl RDW Std Deviation (36.4-46.3) fL Plt Count (182-369) K/mm3 MPV (9.4-12.3) fl Neut % (Auto) (34.0-71.1) % Lymph % (Auto) (19.3-51.7) % [place] % (Auto) (4.7-12.5) % Eos % (Auto) (0.7-5.8) Baso % (Auto) (0.1-1.2) % Neut # (Auto) (1.56-6.13) K/mm3 Lymph # (Auto) (1.18-3.74) K/mm3 [place] # (Auto) (0.24-0.36) K/mm3 Eos # (Auto) (0.04-0.36) K/mm3 Baso # (Auto) (0.01-0.08) K/mm3 Manual Slide Review PT 32.2 H D (9.7-12.0) SECONDS INR 3.15 Puncture Site ABG pH (7.35-7.45) ABG pCO2 (35.0-45.0) mmHg ABG pO2 (80.0-100.0) mmHg ABG HCO3 (22.0-26.0) meq/L ABG O2 Saturation (96.0-97.0) % ABG Base Excess (-2-2.0) A-a Gradient mmHg O2 Delivery Device Oxygen Flow Rate FiO2 (21.00-100.00) % Sodium (136-145) mEq/L Potassium (3.5-5.1) mEq/L Chloride (98-107) mEq/L Carbon Dioxide (21-32) mEq/L Anion Gap (5-15) BUN (7-18) mg/dL Creatinine (0.55-1.02) mg/dL Est Cr Clr Drug Dosing mL/min Estimated GFR (MDRD) (>60) mL/min BUN/Creatinine Ratio (14-18) Glucose (83-115) mg/dL Calcium (8.5-10.1) mg/dL Magnesium (1.8-2.4) mg/dl C-Reactive Protein (<1.0) mg/dL Johnny Results Last 24 Hours: Microbiology 05/30/19 11:52 Aerobic Blood Culture - Preliminary Blood - Venous - Lab Draw NO GROWTH AFTER 2 DAYS Anaerobic Blood Culture - Preliminary NO GROWTH AFTER 2 DAYS 05/30/19 12:06 Aerobic Blood Culture - Preliminary Blood - Venous NO GROWTH AFTER 2 DAYS Anaerobic Blood Culture - Preliminary NO GROWTH AFTER 2 DAYS 05/31/19 11:11 Aerobic Blood Culture - Preliminary Blood - Venous NO GROWTH AFTER 1 DAY Anaerobic Blood Culture - Preliminary NO GROWTH AFTER 1 DAY 05/31/19 11:20 Aerobic Blood Culture - Preliminary Blood - Venous - Lab Draw NO GROWTH AFTER 1 DAY Anaerobic Blood Culture - Preliminary NO GROWTH AFTER 1 DAY Med Orders - Current: Current Medications Acetaminophen (Tylenol) 325 mg PO Q4H PRN PRN Reason: Pain (Mild 1-3)/fever Last Admin: 06/02/19 06:35 Dose: 325 mg Acetazolamide (Diamox) 250 mg PO MOWEFR [facility] Last Admin: 05/31/19 11:43 Dose: 250 mg Aspirin (Halfprin) 81 mg PO DAILY [facility] Last Admin: 06/01/19 08:06 Dose: 81 mg Furosemide (Lasix) 80 mg PO DAILY [facility] Last Admin: 06/01/19 08:07 Dose: 80 mg Ceftriaxone Sodium 2 gm/ (Sodium Chloride) 100 mls @ 200 mls/hr IV Q24H [facility] Last Admin: 06/01/19 13:09 Dose: 200 mls/hr Azithromycin 250 mg/ Sodium (Chloride) 250 mls @ 250 mls/hr IV Q24H [facility] Stop: 06/04/19 14:59 Last Admin: 06/01/19 13:41 Dose: 250 mls/hr Levalbuterol HCl (Xopenex) 1.25 mg NEB Q6HRRT PRN PRN Reason: SOB/Wheezing Last Admin: 05/31/19 11:58 Dose: 1.25 mg Levothyroxine Sodium (Levothyroxine) 25 mcg PO ACBRK [facility] Last Admin: 06/02/19 06:08 Dose: 25 mcg Methylprednisolone Sodium Succinate (Solu-Medrol) 60 mg IVPUSH Q8H [facility] Last Admin: 06/02/19 01:18 Dose: 60 mg Metoprolol Tartrate (Lopressor) 50 mg PO BID [facility] Last Admin: 06/01/19 20:27 Dose: 50 mg Metoprolol Tartrate (Lopressor) 5 mg IVPUSH Q4H PRN PRN Reason: Tachycardia Last Admin: 05/31/19 18:14 Dose: 5 mg Ondansetron HCl (Zofran Odt) 4 mg PO Q6H PRN PRN Reason: nausea, able to take PO Ondansetron HCl (Zofran) 4 mg IV Q6H PRN PRN Reason: Nausea/Vomiting Oseltamivir Phosphate (Tamiflu) 30 mg PO BID [facility] Stop: 06/04/19 09:01 Last Admin: 06/01/19 20:27 Dose: 30 mg Discontinued Medications Albuterol/Ipratropium (Duoneb 3.0-0.5 Mg/3 Ml) 3 ml NEB Q6HRRT PRN PRN Reason: wheezing/SOB/cough Furosemide (Lasix) 60 mg IVPUSH NOW ONE Stop: 05/30/19 14:21 Last Admin: 05/30/19 15:10 Dose: 60 mg Sodium Chloride (Normal Saline) 1,000 mls @ 999 mls/hr IV ONETIME ONE Stop: 05/30/19 12:09 Last Admin: 05/30/19 11:35 Dose: 999 mls/hr Ceftriaxone Sodium 2 gm/ (Sodium Chloride) 100 mls @ 200 mls/hr IV Q24H [facility] Last Admin: 05/31/19 11:33 Dose: 200 mls/hr Azithromycin 500 mg/ Sodium (Chloride) 250 mls @ 250 mls/hr IV ONETIME ONE Stop: 05/31/19 11:59 Last Admin: 05/31/19 14:24 Dose: Not Given Azithromycin 250 mg/ Sodium (Chloride) 250 mls @ 250 mls/hr IV Q24H [facility] Stop: 06/04/19 11:59 Azithromycin 500 mg/ Sodium (Chloride) 250 mls @ 250 mls/hr IV ONETIME ONE Stop: 05/31/19 14:59 Last Admin: 05/31/19 14:25 Dose: 250 mls/hr Sodium Chloride (Normal Saline) 1,000 mls @ 25 mls/hr IV ASDIRECTED [facility] Stop: 06/01/19 14:14 Last Admin: 05/31/19 16:11 Dose: 25 mls/hr Sodium Phosphate (Neutra-Phos) 250 mg PO BID [facility] Stop: 05/31/19 21:01 Last Admin: 05/31/19 20:42 Dose: 250 mg - Exam Quality Assessment: Supplemental Oxygen General: Alert, Oriented, Cooperative, No Acute Distress HEENT: Pupils Equal, Pupils Reactive, EOMI, Mucous Membr. Moist/[place] Neck: Supple, Trachea Midline Lungs: Normal Respiratory Effort, Decreased Breath Sounds, Other (poor inspiratory and expiratory effort) Cardiovascular: Regular Rate, Regular Rhythm GI/Abdominal Exam: Normal Bowel Sounds, Soft, Non-Tender, No Organomegaly, No Distention, No Abnormal Bruit (Female) Exam: Deferred Back Exam: Normal Inspection, Decreased Range of Motion Extremities: Normal Inspection, Normal Range of Motion, Non-Tender, No Pedal Edema, Normal Capillary Refill Peripheral Pulses: 2+: Dorsalis Pedis (L), Dorsalis Pedis (R) Skin: Warm, Dry, Intact Neurological: No New Focal Deficit. No: Normal Gait Psy/Mental Status: Alert, Normal Affect, Normal Mood Sepsis Event Note - Evaluation Sepsis Screening Result: Severe Sepsis Risk - Focused Exam Vital Signs: Vital Signs Temp Pulse Resp BP BP BP Pulse Ox 06/02/19 06:29 06/02/19 04:00 36.6 C 16 91/41 L 95 06/02/19 03:00 93 L 06/02/19 02:00 94 L 06/02/19 00:20 06/02/19 00:00 36.4 C 16 93/62 92 L 06/01/19 23:00 91 L 06/01/19 22:22 06/01/19 22:18 100 06/01/19 22:03 96 06/01/19 20:27 67 100/56 L 06/01/19 20:00 36.4 C 64 16 104/52 L 98 Pulse Ox Pulse Ox 06/02/19 06:29 97 06/02/19 04:00 06/02/19 03:00 06/02/19 02:00 06/02/19 00:20 90 L 06/02/19 00:00 06/01/19 23:00 06/01/19 22:22 99 06/01/19 22:18 06/01/19 22:03 06/01/19 20:27 06/01/19 20:00 Date Exam was Performed: 06/02/19 Time Exam was Performed: 17:08 - Problem List Review Problem List Initiated/Reviewed/Updated: Yes - Plan Plan:: Pneumonia and influenza COPD with acute exacerbation Acute hypercapnic respiratory failure Acute respiratory acidosis Worsening shortness of breath Acidotic in ER requiring BiPAP placement Wears home CPAP while sleeping Home oxygen -2L baseline Positive influenza B Has baseline severe scoliosis - Risk factor History of frequent PNA Clinically unchanged ABG this AM shows a pCO2 level of 82 PLAN - Continue BiPAP and Tamiflu - RT evaluation and treatment - Continue IV Rocephin and Azithromycin daily - IS/Acapella - Xopenex/Ipratropium PRN - Continue home dose Acetazolamide - Repeat CXR in 24-48 hours - O2 as needed - currently at baseline - Procalcitonin pending - VRP, Mycoplasma, Strep pneumo ordered - Unable to produce sputum sample - Blood cultures negative so far - Lactic acid WNL x2 Atrial fibrillation with RVR Therapeutic international normalized ratio (INR) INR >8 on admission, PT decreasing No active bleeding INR is 5.06-->now 3.15 PLAN - Continue to hold warfarin - Repeat daily - Continue Home dose Metoprolol - Telemetry Generalized weakness Hypoalbuminemia Likely from chronic deconditioning PLAN - PT/OT evaluation Normocytic Hypochromic Anemia Carries a hx/o Anemia in the past Hgb is at baseline Has underlying CKD This likely due to acute illness PLAN - Will monitor Hypotension 2/2 Underlying Sepsis BP remains soft PLAN - Continue to monitor - Put parameters on BP medication(s) S/p Hypophosphatemia Phosphorous 2.0-->3.4 PLAN - Supplement Sepsis, POA 2/2 PNA and Viral Infection On IV antibiotics PLAN -Continue current treatment End of Life Care She is refusing chest x-ray and other medical and respiratory treatment at bedside Will speak to her family and offer comfort measures She told her nurse that she's done She requested to be moved to a bigger room and would like to in the hospital Will discussed further with the rest of the family about her decision Discontinue all forms of treatment per patient request Consult Hospice PROPHYLAXIS DVT- supratherapeutic INR GI-not indicated CODE STATUS: FULL CODE DISPOSITION: / for discharge care plan. Hospice consult but she "wants to in the hospital". Transfer to [facility]
[2019-06-02] MEDS: Metoprolol Tartrate 50 MG Tab PO SCH (08:03)
[2019-06-02] MEDS: Aspirin 81 MG Tab.EC PO SCH (08:03)
[2019-06-02] MEDS: Oseltamivir 30 MG Cap PO SCH (08:03)
[2019-06-02] MEDS: Furosemide 40 MG Tab PO SCH (08:03)
--- NOTE | 2019-06-02 09:00 | PCM.SN ---
- Free Text/Narrative Note: Spoke to patient and at bedside. She wanted to be made comfortable. She told her nurse that she's done. Her day nurse was with me when she rescinded her DNR/DNI status.
[2019-06-02] MEDS: Morphine 2 MG/ML Syringe IVPUSH PRN ×2 (09:10→15:11)
[2019-06-02 12:37] VITALS: BP 112/59; PULSE 82
[2019-06-03] MEDS: LORazepam 2 MG/ML SDV IVPUSH PRN ×2 (00:28→12:49)
[2019-06-03] MEDS: Morphine 2 MG/ML Syringe IVPUSH PRN ×3 (06:52→11:09)
--- NOTE | 2019-06-03 09:01 | PCM.PN ---
<Rod Brown - Last Filed: 06/03/19 11:11> - General Info Date of Service: 06/03/19 Admission Dx/Problem (Free Text): Admission Diagnosis/Problem Admission Diagnosis/Problem Pneumonia and influenza Subjective Update: In to see Sara. She states she hopes the process speeds up and wants to soon. She appears uncomfortable and reports significant neck pain. She and her family requested or oxygen be removed. Family is working on SNF paperwork. Functional Status: Reports: Urinating ([place] in place ). Denies: Pain Controlled, Tolerating Diet (comfort care ), Ambulating, New Symptoms - Review of Systems General: Reports: Weakness, Fatigue. Denies: Fever, Malaise, Chills HEENT: Denies: Headaches Pulmonary: Reports: Shortness of Breath. Denies: Cough, Sputum, Wheezing Cardiovascular: Reports: No Symptoms. Denies: Chest Pain, Palpitations Gastrointestinal: Reports: No Symptoms. Denies: Abdominal Pain, Constipation, Diarrhea, Nausea, Vomiting Genitourinary: Denies: Pain Musculoskeletal: Reports: Neck Pain Skin: Reports: No Symptoms Neurological: Reports: No Symptoms. Denies: Confusion Psychiatric: Reports: No Symptoms - Patient Data Vitals - Most Recent: Last Vital Signs Temp 97.0 F 06/02/19 12:36 Pulse 82 06/02/19 12:36 Resp 20 06/02/19 12:36 BP 112/59 L 06/02/19 12:36 Pulse Ox 90 L 06/02/19 12:36 Weight - Most Recent: 81.102 kg I&O - Last 24 Hours: Intake & Output 06/02/19 06/03/19 06/03/19 22:59 06:59 14:59 Intake Total 720 700 Output Total 550 500 Balance 170 200 Johnny Results Last 24 Hours: Microbiology 05/30/19 11:52 Aerobic Blood Culture - Preliminary Blood - Venous - Lab Draw NO GROWTH AFTER 3 DAYS Anaerobic Blood Culture - Preliminary NO GROWTH AFTER 3 DAYS 05/30/19 12:06 Aerobic Blood Culture - Preliminary Blood - Venous NO GROWTH AFTER 3 DAYS Anaerobic Blood Culture - Preliminary NO GROWTH AFTER 3 DAYS 05/31/19 11:11 Aerobic Blood Culture - Preliminary Blood - Venous NO GROWTH AFTER 2 DAYS Anaerobic Blood Culture - Preliminary NO GROWTH AFTER 2 DAYS 05/31/19 11:20 Aerobic Blood Culture - Preliminary Blood - Venous - Lab Draw NO GROWTH AFTER 2 DAYS Anaerobic Blood Culture - Preliminary NO GROWTH AFTER 2 DAYS Med Orders - Current: Current Medications Acetaminophen (Tylenol) 325 mg PO Q4H PRN PRN Reason: Pain (Mild 1-3)/fever Last Admin: 06/02/19 06:35 Dose: 325 mg Levalbuterol HCl (Xopenex) 1.25 mg NEB Q6HRRT PRN PRN Reason: SOB/Wheezing Last Admin: 05/31/19 11:58 Dose: 1.25 mg Lorazepam (Ativan) 0.5 mg IVPUSH Q4H PRN; Protocol PRN Reason: comfort measures Last Admin: 06/03/19 00:28 Dose: 0.5 mg Morphine Sulfate (Morphine) 0.25 mg IVPUSH Q2H PRN PRN Reason: Other Last Admin: 06/03/19 06:52 Dose: 0.25 mg Ondansetron HCl (Zofran Odt) 4 mg PO Q6H PRN PRN Reason: nausea, able to take PO Ondansetron HCl (Zofran) 4 mg IV Q6H PRN PRN Reason: Nausea/Vomiting Discontinued Medications Acetazolamide (Diamox) 250 mg PO MOWEFR [facility] Last Admin: 05/31/19 11:43 Dose: 250 mg Albuterol/Ipratropium (Duoneb 3.0-0.5 Mg/3 Ml) 3 ml NEB Q6HRRT PRN PRN Reason: wheezing/SOB/cough Aspirin (Halfprin) 81 mg PO DAILY [facility] Last Admin: 06/02/19 08:03 Dose: 81 mg Furosemide (Lasix) 60 mg IVPUSH NOW ONE Stop: 05/30/19 14:21 Last Admin: 05/30/19 15:10 Dose: 60 mg Furosemide (Lasix) 80 mg PO DAILY [facility] Last Admin: 06/02/19 08:03 Dose: 80 mg Sodium Chloride (Normal Saline) 1,000 mls @ 999 mls/hr IV ONETIME ONE Stop: 05/30/19 12:09 Last Admin: 05/30/19 11:35 Dose: 999 mls/hr Ceftriaxone Sodium 2 gm/ (Sodium Chloride) 100 mls @ 200 mls/hr IV Q24H [facility] Last Admin: 05/31/19 11:33 Dose: 200 mls/hr Azithromycin 500 mg/ Sodium (Chloride) 250 mls @ 250 mls/hr IV ONETIME ONE Stop: 05/31/19 11:59 Last Admin: 05/31/19 14:24 Dose: Not Given Azithromycin 250 mg/ Sodium (Chloride) 250 mls @ 250 mls/hr IV Q24H [facility] Stop: 06/04/19 11:59 Ceftriaxone Sodium 2 gm/ (Sodium Chloride) 100 mls @ 200 mls/hr IV Q24H [facility] Last Admin: 06/01/19 13:09 Dose: 200 mls/hr Azithromycin 500 mg/ Sodium (Chloride) 250 mls @ 250 mls/hr IV ONETIME ONE Stop: 05/31/19 14:59 Last Admin: 05/31/19 14:25 Dose: 250 mls/hr Azithromycin 250 mg/ Sodium (Chloride) 250 mls @ 250 mls/hr IV Q24H [facility] Stop: 06/04/19 14:59 Last Admin: 06/01/19 13:41 Dose: 250 mls/hr Sodium Chloride (Normal Saline) 1,000 mls @ 25 mls/hr IV ASDIRECTED [facility] Stop: 06/01/19 14:14 Last Admin: 05/31/19 16:11 Dose: 25 mls/hr Levothyroxine Sodium (Levothyroxine) 25 mcg PO ACBRK [facility] Last Admin: 06/02/19 06:08 Dose: 25 mcg Methylprednisolone Sodium Succinate (Solu-Medrol) 60 mg IVPUSH Q8H [facility] Last Admin: 06/02/19 08:02 Dose: 60 mg Metoprolol Tartrate (Lopressor) 50 mg PO BID [facility] Last Admin: 06/02/19 08:03 Dose: 50 mg Metoprolol Tartrate (Lopressor) 5 mg IVPUSH Q4H PRN PRN Reason: Tachycardia Last Admin: 05/31/19 18:14 Dose: 5 mg Oseltamivir Phosphate (Tamiflu) 30 mg PO BID [facility] Stop: 06/04/19 09:01 Last Admin: 06/02/19 08:03 Dose: 30 mg Sodium Phosphate (Neutra-Phos) 250 mg PO BID [facility] Stop: 05/31/19 21:01 Last Admin: 05/31/19 20:42 Dose: 250 mg - Exam Quality Assessment: Urine Catheter (comfort care ). No: Supplemental Oxygen General: Alert, Oriented, Cooperative, No Acute Distress HEENT: Pupils Equal, Pupils Reactive, Mucous Membr. Moist/[place] Neck: Supple Lungs: Normal Respiratory Effort, Decreased Breath Sounds, Other (Poor inspiratory and expiratory effort ) Cardiovascular: Regular Rate, Regular Rhythm GI/Abdominal Exam: Normal Bowel Sounds, Soft, Non-Tender, No Distention, No Abnormal Bruit (Female) Exam: Deferred Extremities: Normal Inspection, Non-Tender Skin: Warm, Dry, Intact Neurological: No New Focal Deficit Psy/Mental Status: Alert, Depressed Sepsis Event Note - Evaluation Sepsis Screening Result: Severe Sepsis Risk - Problem List & Annotations (1) Acute respiratory acidosis SNOMED Code(s): 79399479 Code(s): E87.2 - ACIDOSIS Status: Acute Current Visit: Yes (2) Anemia SNOMED Code(s): 708103727 Code(s): D64.9 - ANEMIA, UNSPECIFIED Status: Acute Current Visit: Yes (3) Hypercapnic respiratory failure SNOMED Code(s): 406216216 Code(s): J96.92 - RESPIRATORY FAILURE, UNSPECIFIED WITH HYPERCAPNIA Status : Acute Current Visit: Yes (4) Hypoalbuminemia SNOMED Code(s): 132478643 Code(s): E88.09 - OTH DISORDERS OF PLASMA-PROTEIN METABOLISM, NEC Status: Acute Current Visit: Yes (5) Pneumonia and influenza Status: Acute Current Visit: Yes (6) Supratherapeutic international normalized ratio (INR) SNOMED Code(s): 357870287 Code(s): R79.1 - ABNORMAL COAGULATION PROFILE Status: Acute Current Visit : Yes (7) COPD with acute exacerbation SNOMED Code(s): 664661553 Code(s): J44.1 - CHRONIC OBSTRUCTIVE PULMONARY DISEASE W (ACUTE) EXACERBATION Status: Acute Priority: High Current Visit: No (8) Need for comfort care SNOMED Code(s): 775260625, 967366418 Code(s): JOH0912 - Status: Acute Current Visit: Yes - Problem List Review Problem List Initiated/Reviewed/Updated: Yes - Plan Plan:: End of Life Care She is refusing chest x-ray and other medical and respiratory treatment at bedside Patient and family request comfort measures She told her nurse that she's done She requested to be moved to a bigger room and would like to in the hospital Will discussed further with the rest of the family about her decision Discontinue all forms of treatment per patient request Consult Hospice Inactive: Pneumonia and influenza COPD with acute exacerbation Acute hypercapnic respiratory failure Acute respiratory acidosis Worsening shortness of breath Acidotic in ER requiring BiPAP placement Wears home CPAP while sleeping Home oxygen -2L baseline Positive influenza B Has baseline severe scoliosis - Risk factor History of frequent PNA Clinically unchanged ABG this AM shows a pCO2 level of 82 PLAN - Continue BiPAP and Tamiflu -> discontinue - RT evaluation and treatment - Continue IV Rocephin and Azithromycin daily -> discontinue - IS/Acapella -> stop - Xopenex/Ipratropium PRN - Continue home dose Acetazolamide -> discontinue - Repeat CXR in 24-48 hours -> stop - O2 as needed - discontinued per patient request - Procalcitonin pending - VRP, Mycoplasma, Strep pneumo ordered - Unable to produce sputum sample - Blood cultures negative so far - Lactic acid WNL x2 Atrial fibrillation with RVR Therapeutic international normalized ratio (INR) INR >8 on admission, PT decreasing No active bleeding INR is 5.06-->now 3.15 PLAN - Continue to hold warfarin - Repeat daily -> stop - Continue Home dose Metoprolol -> stop - Telemetry -> stop Generalized weakness Hypoalbuminemia Likely from chronic deconditioning PLAN - PT/OT evaluation -> discontinue Normocytic Hypochromic Anemia Carries a hx/o Anemia in the past Hgb is at baseline Has underlying CKD This likely due to acute illness PLAN - Will monitor Hypotension 2/2 Underlying Sepsis BP remains soft PLAN - Continue to monitor - Put parameters on BP medication(s) S/p Hypophosphatemia Phosphorous 2.0-->3.4 PLAN - Supplement Sepsis, POA 2/2 PNA and Viral Infection On IV antibiotics PLAN -Continue current treatment -> stop PROPHYLAXIS DVT- supratherapeutic INR GI-not indicated CODE STATUS: FULL CODE-> changed to DNR/DNI/Comfort measures per patient request. DISPOSITION: SW/CM for discharge care plan. Hospice consult but she "wants to in the hospital". Transfer to [facility]. Family working on SNF paperwork. <Aden Eagle T - Last Filed: 06/03/19 14:12> - Patient Data Vitals - Most Recent: Last Vital Signs Temp 36.1 C 06/02/19 12:36 Pulse 82 06/02/19 12:36 Resp 20 06/02/19 12:36 BP 112/59 L 06/02/19 12:36 Pulse Ox 90 L 06/02/19 12:36 I&O - Last 24 Hours: Intake & Output 06/02/19 06/03/19 06/03/19 22:59 06:59 14:59 Intake Total 930 700 0 Output Total 550 500 Balance 380 200 0 Johnny Results Last 24 Hours: Microbiology 05/30/19 11:52 Aerobic Blood Culture - Preliminary Blood - Venous - Lab Draw NO GROWTH AFTER 4 DAYS Anaerobic Blood Culture - Preliminary NO GROWTH AFTER 4 DAYS 05/30/19 12:06 Aerobic Blood Culture - Preliminary Blood - Venous NO GROWTH AFTER 4 DAYS Anaerobic Blood Culture - Preliminary NO GROWTH AFTER 4 DAYS 05/31/19 11:11 Aerobic Blood Culture - Preliminary Blood - Venous NO GROWTH AFTER 3 DAYS Anaerobic Blood Culture - Preliminary NO GROWTH AFTER 3 DAYS 05/31/19 11:20 Aerobic Blood Culture - Preliminary Blood - Venous - Lab Draw NO GROWTH AFTER 3 DAYS Anaerobic Blood Culture - Preliminary NO GROWTH AFTER 3 DAYS Med Orders - Current: Current Medications Acetaminophen (Tylenol) 325 mg PO Q4H PRN PRN Reason: Pain (Mild 1-3)/fever Last Admin: 06/03/19 12:27 Dose: 325 mg Levalbuterol HCl (Xopenex) 1.25 mg NEB Q6HRRT PRN PRN Reason: SOB/Wheezing Last Admin: 05/31/19 11:58 Dose: 1.25 mg Lorazepam (Ativan) 0.5 mg IVPUSH Q4H PRN; Protocol PRN Reason: comfort measures Last Admin: 06/03/19 12:49 Dose: 0.5 mg Morphine Sulfate (Morphine) 0.5 mg IVPUSH Q2H PRN PRN Reason: Pain Last Admin: 06/03/19 12:30 Dose: 0.5 mg Ondansetron HCl (Zofran Odt) 4 mg PO Q6H PRN PRN Reason: nausea, able to take PO Ondansetron HCl (Zofran) 4 mg IV Q6H PRN PRN Reason: Nausea/Vomiting Discontinued Medications Acetazolamide (Diamox) 250 mg PO MOWEFR [facility] Last Admin: 05/31/19 11:43 Dose: 250 mg Albuterol/Ipratropium (Duoneb 3.0-0.5 Mg/3 Ml) 3 ml NEB Q6HRRT PRN PRN Reason: wheezing/SOB/cough Aspirin (Halfprin) 81 mg PO DAILY [facility] Last Admin: 06/02/19 08:03 Dose: 81 mg Furosemide (Lasix) 60 mg IVPUSH NOW ONE Stop: 05/30/19 14:21 Last Admin: 05/30/19 15:10 Dose: 60 mg Furosemide (Lasix) 80 mg PO DAILY [facility] Last Admin: 06/02/19 08:03 Dose: 80 mg Sodium Chloride (Normal Saline) 1,000 mls @ 999 mls/hr IV ONETIME ONE Stop: 05/30/19 12:09 Last Admin: 05/30/19 11:35 Dose: 999 mls/hr Ceftriaxone Sodium 2 gm/ (Sodium Chloride) 100 mls @ 200 mls/hr IV Q24H [facility] Last Admin: 05/31/19 11:33 Dose: 200 mls/hr Azithromycin 500 mg/ Sodium (Chloride) 250 mls @ 250 mls/hr IV ONETIME ONE Stop: 05/31/19 11:59 Last Admin: 05/31/19 14:24 Dose: Not Given Azithromycin 250 mg/ Sodium (Chloride) 250 mls @ 250 mls/hr IV Q24H [facility] Stop: 06/04/19 11:59 Ceftriaxone Sodium 2 gm/ (Sodium Chloride) 100 mls @ 200 mls/hr IV Q24H [facility] Last Admin: 06/01/19 13:09 Dose: 200 mls/hr Azithromycin 500 mg/ Sodium (Chloride) 250 mls @ 250 mls/hr IV ONETIME ONE Stop: 05/31/19 14:59 Last Admin: 05/31/19 14:25 Dose: 250 mls/hr Azithromycin 250 mg/ Sodium (Chloride) 250 mls @ 250 mls/hr IV Q24H [facility] Stop: 06/04/19 14:59 Last Admin: 06/01/19 13:41 Dose: 250 mls/hr Sodium Chloride (Normal Saline) 1,000 mls @ 25 mls/hr IV ASDIRECTED [facility] Stop: 06/01/19 14:14 Last Admin: 05/31/19 16:11 Dose: 25 mls/hr Levothyroxine Sodium (Levothyroxine) 25 mcg PO ACBRK [facility] Last Admin: 06/02/19 06:08 Dose: 25 mcg Methylprednisolone Sodium Succinate (Solu-Medrol) 60 mg IVPUSH Q8H [facility] Last Admin: 06/02/19 08:02 Dose: 60 mg Metoprolol Tartrate (Lopressor) 50 mg PO BID [facility] Last Admin: 06/02/19 08:03 Dose: 50 mg Metoprolol Tartrate (Lopressor) 5 mg IVPUSH Q4H PRN PRN Reason: Tachycardia Last Admin: 05/31/19 18:14 Dose: 5 mg Morphine Sulfate (Morphine) 0.25 mg IVPUSH Q2H PRN PRN Reason: Other Last Admin: 06/03/19 11:09 Dose: 0.25 mg Oseltamivir Phosphate (Tamiflu) 30 mg PO BID [facility] Stop: 06/04/19 09:01 Last Admin: 06/02/19 08:03 Dose: 30 mg Sodium Phosphate (Neutra-Phos) 250 mg PO BID [facility] Stop: 05/31/19 21:01 Last Admin: 05/31/19 20:42 Dose: 250 mg - My Orders Last 24 Hours: My Active Orders 06/02/19 Dinner Regular Diet [DIET]
[2019-06-03] MEDS ORDERED: Morphine 2 MG/ML Syringe IVPUSH PRN (11:15)
[2019-06-03] MEDS: Acetaminophen 325 MG Tab PO PRN (12:27)
--- NOTE | 2019-06-03 13:51 | PCM.DCSUM1 ---
Discharge Summary - Hospital Course HPI Initial Comments: Patient is an 83-year-old female who presents to the ED for evaluation of increased shortness of breath and a headache. The patient's notes that over the last 3 or 4 days, she has had a cough, and increased work of breathing. He does note that she is on 3 L oxygen normally, but he has had to increase her oxygen to 4 L, as her home O2 sats were 80% on 3 L. At time of triage, it was 92% on 4 L. The patient reports feeling generalized weakness, and when I ask her what hurts, she points to her head, and rubs her forehead. She notes this pain is a 10 out of 10, and states that this is worst headache of her life. Of note the patient is on a blood thinner for history of A. fib. She denies any recent falls or trauma to the head. The notes that the patient is a code 3, and would not want extreme measures done. Patient's regular doctor is Erika Mccracken. denies any sort of fevers or chills.the patient has, however she feels warm to the touch on examination. Blood pressure is on the low side of normal as well. Diagnosis: Stroke: No - Discharge Data Discharge Date: 06/03/19 (Admit date: 05/30/19) Discharge Disposition: 20 Preliminary Cause of *Q: Respiratory Failure Condition: - Referral to Home Health Primary Care Physician: Erika Mccracken MD - Discharge Diagnosis/Problem(s) (1) Acute respiratory acidosis SNOMED Code(s): 22247536 ICD Code: E87.2 - ACIDOSIS Status: Acute Current Visit: Yes (2) Anemia SNOMED Code(s): 698093874 ICD Code: D64.9 - ANEMIA, UNSPECIFIED Status: Acute Current Visit: Yes (3) Hypercapnic respiratory failure SNOMED Code(s): 551960848 ICD Code: J96.92 - RESPIRATORY FAILURE, UNSPECIFIED WITH HYPERCAPNIA Status : Acute Current Visit: Yes (4) Hypoalbuminemia SNOMED Code(s): 157200846 ICD Code: E88.09 - OTH DISORDERS OF PLASMA-PROTEIN METABOLISM, NEC Status: Acute Current Visit: Yes (5) Pneumonia and influenza Status: Acute Current Visit: Yes (6) Supratherapeutic international normalized ratio (INR) SNOMED Code(s): 393945660 ICD Code: R79.1 - ABNORMAL COAGULATION PROFILE Status: Acute Current Visit: Yes (7) COPD with acute exacerbation SNOMED Code(s): 554315666 ICD Code: J44.1 - CHRONIC OBSTRUCTIVE PULMONARY DISEASE W (ACUTE) EXACERBATION Status: Acute Priority: High Current Visit: No (8) Need for comfort care SNOMED Code(s): 184637620, 076347245 ICD Code: BJT1041 - Status: Acute Current Visit: Yes - Patient Summary/Data Consults: Consultations 05/31/19 09:56 Consult to Case Management/[employer]ter [CONS] Routine 05/31/19 09:58 Consult to Respiratory Therapy [Respiratory Care Assess and Treatment] [CONS] Routine 05/31/19 09:59 Consult to Spiritual Care [CONS] Routine 06/02/19 09:32 Consult to Hospice [CONS] Routine Labs Pending at D/C: None Hospital Course: Sara Oliver was admitted to the floor with pneumonia and influenza. She was started on Tamiflu and BiPAP. She was also started on azithromycin and Rocephin after she was found to be mycoplasma positive. On admission her PT was very high and her INR was greater than 8. Her home dose of warfarin was held and this did respond appropriately. Unfortunately even with BiPAP and other treatment her CO2 continued to climb all the way up to 82.2. Clinically she continued to deteriorate. She was moved to the ICU but ultimately the patient decided that she wanted to be made comfort cares and stop all treatment, as she also did tell nursing she was done with it. Per her wish she was made comfort care with only morphine and Ativan as needed for pain and anxiety. Oxygen was discontinued per her request. On the morning prior to her passing the patient was upset that it was "taking so long." Ultimately the patient at 1333 on 06/03/2019 with family at bedside. - Discharge Plan *PRESCRIPTION DRUG MONITORING PROGRAM REVIEWED*: No *COPY OF PRESCRIPTION DRUG MONITORING REPORT IN PATIENT BA: No Home Medications: Home Meds Aspirin [Halfprin] 81 mg PO DAILY 05/29/14 [History] B2/Vits A,C,E/Lut/Zeaxanth/Min [Icaps] 2 tab PO QAM 05/29/14 [History] Cholecalciferol (Vitamin D3) [Vitamin D3] 1,000 unit PO BEDTIME 05/29/14 [ History] Furosemide [Lasix] 80 mg PO DAILY 05/29/14 [History] Levothyroxine 25 mcg PO ACBRK 05/29/14 [History] Magnesium Oxide 400 mg PO BEDTIME 05/29/14 [History] Potassium Chloride [Klor-Con M20] 10 meq PO DAILY 05/29/14 [History] Simvastatin [Zocor] 40 mg PO BEDTIME 05/29/14 [History] Omeprazole 20 mg PO DAILY 10/08/17 [History] acetaZOLAMIDE [Acetazolamide] 250 mg PO MOWEFR 10/09/17 [History] Metoprolol Tartrate 50 mg PO BID 10/28/17 [History] Alendronate Sodium [Fosamax] 70 mg PO FR 05/30/19 [History] Warfarin [Coumadin] 2.5 mg PO DAILY 05/30/19 [History] Patient Handouts: Sepsis, Adult Forms: ED Department Discharge Referrals: Erika Mccracken MD [Primary Care Provider] - - Discharge Summary/Plan Comment DC Time >30 min.: No - General Info Date of Service: 06/03/19 Admission Dx/Problem (Free Text: Admission Diagnosis/Problem Admission Diagnosis/Problem Pneumonia and influenza - Review of Systems Systems Review Comment: Patient pulseless and apneic. - Patient Data Vitals - Most Recent: Last Vital Signs Temp 97.0 F 06/02/19 12:36 Pulse 82 06/02/19 12:36 Resp 20 06/02/19 12:36 BP 112/59 L 06/02/19 12:36 Pulse Ox 90 L 06/02/19 12:36 Weight - Most Recent: 178 lb 12.8 oz I&O - Last 24 hours: Intake & Output 06/02/19 06/03/19 06/03/19 22:59 06:59 14:59 Intake Total 930 700 0 Output Total 550 500 Balance 380 200 0 EDGAR Results - Last 24 hrs: Microbiology 05/30/19 11:52 Aerobic Blood Culture - Preliminary Blood - Venous - Lab Draw NO GROWTH AFTER 4 DAYS Anaerobic Blood Culture - Preliminary NO GROWTH AFTER 4 DAYS 05/30/19 12:06 Aerobic Blood Culture - Preliminary Blood - Venous NO GROWTH AFTER 4 DAYS Anaerobic Blood Culture - Preliminary NO GROWTH AFTER 4 DAYS 05/31/19 11:11 Aerobic Blood Culture - Preliminary Blood - Venous NO GROWTH AFTER 3 DAYS Anaerobic Blood Culture - Preliminary NO GROWTH AFTER 3 DAYS 05/31/19 11:20 Aerobic Blood Culture - Preliminary Blood - Venous - Lab Draw NO GROWTH AFTER 3 DAYS Anaerobic Blood Culture - Preliminary NO GROWTH AFTER 3 DAYS Med Orders - Current: Current Medications Acetaminophen (Tylenol) 325 mg PO Q4H PRN PRN Reason: Pain (Mild 1-3)/fever Last Admin: 06/03/19 12:27 Dose: 325 mg Levalbuterol HCl (Xopenex) 1.25 mg NEB Q6HRRT PRN PRN Reason: SOB/Wheezing Last Admin: 05/31/19 11:58 Dose: 1.25 mg Lorazepam (Ativan) 0.5 mg IVPUSH Q4H PRN; Protocol PRN Reason: comfort measures Last Admin: 06/03/19 12:49 Dose: 0.5 mg Morphine Sulfate (Morphine) 0.5 mg IVPUSH Q2H PRN PRN Reason: Pain Last Admin: 06/03/19 12:30 Dose: 0.5 mg Ondansetron HCl (Zofran Odt) 4 mg PO Q6H PRN PRN Reason: nausea, able to take PO Ondansetron HCl (Zofran) 4 mg IV Q6H PRN PRN Reason: Nausea/Vomiting Discontinued Medications Acetazolamide (Diamox) 250 mg PO MOWEFR [facility] Last Admin: 05/31/19 11:43 Dose: 250 mg Albuterol/Ipratropium (Duoneb 3.0-0.5 Mg/3 Ml) 3 ml NEB Q6HRRT PRN PRN Reason: wheezing/SOB/cough Aspirin (Halfprin) 81 mg PO DAILY [facility] Last Admin: 06/02/19 08:03 Dose: 81 mg Furosemide (Lasix) 60 mg IVPUSH NOW ONE Stop: 05/30/19 14:21 Last Admin: 05/30/19 15:10 Dose: 60 mg Furosemide (Lasix) 80 mg PO DAILY [facility] Last Admin: 06/02/19 08:03 Dose: 80 mg Sodium Chloride (Normal Saline) 1,000 mls @ 999 mls/hr IV ONETIME ONE Stop: 05/30/19 12:09 Last Admin: 05/30/19 11:35 Dose: 999 mls/hr Ceftriaxone Sodium 2 gm/ (Sodium Chloride) 100 mls @ 200 mls/hr IV Q24H [facility] Last Admin: 05/31/19 11:33 Dose: 200 mls/hr Azithromycin 500 mg/ Sodium (Chloride) 250 mls @ 250 mls/hr IV ONETIME ONE Stop: 05/31/19 11:59 Last Admin: 05/31/19 14:24 Dose: Not Given Azithromycin 250 mg/ Sodium (Chloride) 250 mls @ 250 mls/hr IV Q24H [facility] Stop: 06/04/19 11:59 Ceftriaxone Sodium 2 gm/ (Sodium Chloride) 100 mls @ 200 mls/hr IV Q24H [facility] Last Admin: 06/01/19 13:09 Dose: 200 mls/hr Azithromycin 500 mg/ Sodium (Chloride) 250 mls @ 250 mls/hr IV ONETIME ONE Stop: 05/31/19 14:59 Last Admin: 05/31/19 14:25 Dose: 250 mls/hr Azithromycin 250 mg/ Sodium (Chloride) 250 mls @ 250 mls/hr IV Q24H [facility] Stop: 06/04/19 14:59 Last Admin: 06/01/19 13:41 Dose: 250 mls/hr Sodium Chloride (Normal Saline) 1,000 mls @ 25 mls/hr IV ASDIRECTED [facility] Stop: 06/01/19 14:14 Last Admin: 05/31/19 16:11 Dose: 25 mls/hr Levothyroxine Sodium (Levothyroxine) 25 mcg PO ACBRK [facility] Last Admin: 06/02/19 06:08 Dose: 25 mcg Methylprednisolone Sodium Succinate (Solu-Medrol) 60 mg IVPUSH Q8H [facility] Last Admin: 06/02/19 08:02 Dose: 60 mg Metoprolol Tartrate (Lopressor) 50 mg PO BID [facility] Last Admin: 06/02/19 08:03 Dose: 50 mg Metoprolol Tartrate (Lopressor) 5 mg IVPUSH Q4H PRN PRN Reason: Tachycardia Last Admin: 05/31/19 18:14 Dose: 5 mg Morphine Sulfate (Morphine) 0.25 mg IVPUSH Q2H PRN PRN Reason: Other Last Admin: 06/03/19 11:09 Dose: 0.25 mg Oseltamivir Phosphate (Tamiflu) 30 mg PO BID [facility] Stop: 06/04/19 09:01 Last Admin: 06/02/19 08:03 Dose: 30 mg Sodium Phosphate (Neutra-Phos) 250 mg PO BID [facility] Stop: 05/31/19 21:01 Last Admin: 05/31/19 20:42 Dose: 250 mg - Exam Physical Findings Comments:: Patient pulseless and apneic.
== END 2019-06-03 17:58 | disposition expired | DRG 871 ==
LOC: JD.ED 10:31 → JD.MS 15:16 → JD.ICU 05-31 16:38 → JD.MS 06-02 14:40
PROVIDERS: ADMIT Internal Medicine; ATTEND Internal Medicine
PROC: 5A09457 Assistance with Respiratory Ventilation, 24-96 Consecutive Hours, Continuous Positive Airway Pressure (ICD-10-PCS; principal; 2019-05-30)
DX: J11.00 Influenza due to unidentified influenza virus with unspecified type of pneumonia (principal); A41.9 Sepsis, unspecified organism; J96.02 Acute respiratory failure with hypercapnia; J10.08 Influenza due to other identified influenza virus with other specified pneumonia; J15.7 Pneumonia due to Mycoplasma pneumoniae; E87.2 Acidosis; I10 Essential (primary) hypertension; J44.9 Chronic obstructive pulmonary disease, unspecified; J44.1 Chronic obstructive pulmonary disease with (acute) exacerbation; J44.0 Chronic obstructive pulmonary disease with (acute) lower respiratory infection; Z51.5 Encounter for palliative care; Z66 Do not resuscitate; I48.91 Unspecified atrial fibrillation; I12.9 Hypertensive chronic kidney disease with stage 1 through stage 4 chronic kidney disease, or unspecified chronic kidney disease; N18.9 Chronic kidney disease, unspecified; R79.1 Abnormal coagulation profile; H54.7 Unspecified visual loss; E78.00 Pure hypercholesterolemia, unspecified; D63.1 Anemia in chronic kidney disease; G47.30 Sleep apnea, unspecified; E66.9 Obesity, unspecified; G89.29 Other chronic pain; M41.9 Scoliosis, unspecified; M85.80 Other specified disorders of bone density and structure, unspecified site; E03.9 Hypothyroidism, unspecified; M54.2 Cervicalgia; I95.9 Hypotension, unspecified; E83.39 Other disorders of phosphorus metabolism; Z90.49 Acquired absence of other specified parts of digestive tract; Z90.710 Acquired absence of both cervix and uterus; Z79.82 Long term (current) use of aspirin; Z68.33 Body mass index [BMI] 33.0-33.9, adult; Z79.01 Long term (current) use of anticoagulants; Z79.899 Other long term (current) drug therapy; Z88.8 Allergy status to other drugs, medicaments and biological substances; Z99.81 Dependence on supplemental oxygen; Z90.721 Acquired absence of ovaries, unilateral; Z79.890 Hormone replacement therapy
CPT/HCPCS: 36415; 36600 ×2; 70450; 71045; 80053; 82803 ×2; 83605; 83735; 83880; 84145; 84484; 85007; 85027; 85610; 85730; 87040 ×2; 87804 ×2; 93005; 94660; 96361; 96374; 99285; J1940; J7030; 51702; 80048; 81001; 84100; 85025; 86140; 86738; 87486; 87581; 87632; 87798; 87899; 93010; 94640; 94667; 97116-GP; 97162-GP; 97165-GO; 97535-GO; 99284; A9270-GY; J0456; J0696; J2060; J2270; J2920; J3490; J7050; J7612-GY